=== PATIENT | female | born 1965 | race Caucasian/White ===

== ENCOUNTER 2020-07-26 07:31 | Outpatient (CLI) | payer OTHER, SELFPAY ==
--- NOTE | ~2020-07-26 | MM_ITS ---
EXAMINATION: MM screening ethan BI w chucho HISTORY: Screening TECHNIQUE: Craniocaudal and mediolateral oblique 3-D tomosynthesis images were obtained and synthetic 2-D images were generated. CAD analysis was submitted and interpreted. COMPARISON: Comparison to multiple prior studies sequentially, with oldest reviewed study dated 02/18. BREAST PARENCHYMAL COMPOSITION: There are scattered areas of fibroglandular density. FINDINGS: There is no evidence of suspicious mass, calcification, or architectural distortion to sugg est malignancy in either breast. There has been no suspicious interval change. IMPRESSION: 1. No mammographic evidence of malignancy. 2. Recommend routine screening mammography in one year. BI-RADS Category 1: Negative Reviewed, dictated and finalized at location A. LE COLLECTOR
--- NOTE | ~2020-07-26 | DEXA_ITS ---
Bone Density Report Name: Jessica Tena Age: 54 Sex: Female Ethnicity: White Date of : 1965 Indication: postmenopausal; Referring Provider: Mariana Blancas Study: Bone densitometry was performed. Exam Date: July 26, 2020 Accession number: [id number] Bone Density: Region BMD T-score Z-score Classification AP Spine (L1, L2, L4) 1.054 0.2 1.1 Normal Femoral Neck (Left) 0.811 -0.3 0.6 Normal Total Hip (Left) 0.994 0.4 1.0 Normal Total Hip Bilateral Avg 0.985 0.4 0.9 Normal Femoral Neck (Right) 0.812 -0.3 0.6 Normal Total Hip (Right) 0.975 0.3 0.9 Normal World Health Organization criteria for BMD impression classify patients as: Normal (T-score at or above -1.0), Osteopenia (T-score between -1.0 and -2.5), or Osteoporosis (T-score at or below -2.5). 10-year Fracture Risk: FRAX not reported because: All T-scores for Spine Total, Hip Total, Femoral Neck at or above -1.0 Clinical Information Provided by Patient: Smokes Patient maximum height was 64 Menopause Age: 49 No regular weight bearing exercise Drinks caffeinated beverages Onset of menses at age 14 Number of children 3 Impression: The patient has normal bone mass. The patient has risk factors, including: smoking. Discussion: BONE DENSITY IS ABOVE THE MINIMUM DESIRABLE LEVEL AT ALL SKELETAL SITES TESTED. This patient?s bone mineral density is above the minimum desirable level (T-score -1.0 or better) at all sites measured. The patient should follow a healthful lifestyle (good nutrition with adequate calcium and vitamin D, and appropriate weight-bearing exercise). Follow-Up: Consider repeating this study in 5 years or sooner if there is some new clinical indication. Reported by: LOCO on 07/26/2020 8:01:00 AM. Reviewed, dictated and finalized at location AJones HAMPTON
== END 2020-07-26 07:32 | disposition home or self-care (01) ==
PROVIDERS: PCP Internal Medicine; Visit Provider Nurse Practitioner
DX: Z12.31 Encounter for screening mammogram for malignant neoplasm of breast (principal); Z78.0 Asymptomatic menopausal state
CPT/HCPCS: 77063; 77067; 77080

== ENCOUNTER 2020-09-03 14:51 | Emergency (ER) | payer OTHER, SELFPAY ==
[2020-09-03] VITALS (7 sets, daily range): BP systolic 129–155; BP diastolic 78–95; PULSE 63–86; RESP 13–20; TEMP 36.4; O2SAT 98–100
--- NOTE | ~2020-09-03 | XR_ITS ---
EXAMINATION: XR chest 2V 09/03/2020 17:21 INDICATION: Covid For one week. Smoker. Chest pain. Hypertension. PROCEDURE: PA and lateral views of the chest COMPARISON: 12/17/2011 FINDINGS: The lungs are clear. The cardiomediastinal silhouette is within normal limits. There are no pleural effusions. There is no pneumothorax suspected. IMPRESSION: 1: NO ACUTE CARDIOPULMONARY DISEASE. Reviewed, dictated and finalized at location A. TH CARE COORDINATOR
--- NOTE | 2020-09-03 14:54 | ECG_ITS ---
Measurements Intervals [place] Rate: 78 P: 68 KS: 139 QRS: 5 QRSD: 93 T: 7 QT: 381 QTc: 435 Interpretive Statements SINUS RHYTHM LOW QRS VOLTAGE IN PRECORDIAL LEADS BORDERLINE R WAVE PROGRESSION, ANTERIOR LEADS BORDERLINE ST-T WAVE ABNORMALITY- ANTEROLAT/INF LEADS BORDERLINE ECG Electronically Signed On 09-03-2020 16:33:52 ACCESS LEAD by Srinath Cook D.O.
[2020-09-03 15:08] LABS: Basophils Percent Auto 0.3 % (0.2-1.2); Eosinophils Absolute Auto 0.1 K/mm3 (0-0.3); Eosinophils Percent Auto 1.2 % (0-4.4); Hematocrit 44.9 % (37.0-47.0); Hemoglobin 15.2 g/dL (12.0-15.0); Immature Granulocyte Absolute 0.02 K/mm3 (0.00-0.031); Immature Granulocyte Percent A 0.3 % (0-0.5); Lymphocytes Absolute Auto 2.13 K/mm3 (0.9-3.2); Mean Corpuscular HGB Conc 33.9 g/dl (32-36); Mean Corpuscular Hemoglobin 31.6 pg (26-34); Mean Corpuscular Volume 93.3 fl (80-100); Mean Platelet Volume 9.6 fl (7.4-10.4); Monocytes Absolute Auto 0.4 K/mm3 (0.1-0.6); Monocytes Percent Auto 5.4 % (2.6-8.5); Neutrophils Absolute Auto 3.9 K/mm3 (1.3-6.7); Neutrophils Percent Auto 59.8 % (45.5-73.1); Platelet Count Result 287 k/mm3 (150-375); Red Blood Count 4.81 M/mm3 (4.2-5.4); Red Cell Distribution Width 12.3 % (11.5-14.5); White Blood Count 6.5 K/mm3 (4.5-10.0)
[2020-09-03 15:19] LABS: INR 0.8
[2020-09-03 15:20] LABS: Anion Gap 8 mmol/L (8-16); Blood Urea Nitrogen 14 mg/dL (7-17); Carbon Dioxide 31 mmol/L (22-30); Chloride 100 mmol/L (98-107); Estimated CRCL calculation 80 ml/min; Estimated Glomerular Filt Rate > 60; Glucose 166 mg/dL (65-105); Potassium 3.6 mmol/L (3.4-5.0); Sodium 139 mmol/L (137-145)
[2020-09-03 15:21] LABS: Partial Thromboplastin Time 24.3 SECONDS (22.3-36.8)
[2020-09-03 15:31] LABS: Troponin I < 0.012 ng/mL (0.000-0.034)
[2020-09-03 19:36] LABS: Troponin I < 0.012 ng/mL (0.000-0.034)
--- NOTE | 2020-09-03 19:48 | ED.CHESTPAIN ---
HPI - Chest Pain General Chief Complaint: Chest Pain <Carlos Blackman PA-C - Last Filed: 09/03/20 20:40> Stated Complaint: +covid/chest pain <Carlos Blackman PA-C - Last Filed: 09/03/20 20:40> Time Seen by Provider: 09/03/20 19:43 <Carlso Blackman PA-C - Last Filed: 09/03/20 20:40> Source: patient <Carlos Blackman PA-C - Last Filed: 09/03/20 20:40> Mode of arrival: ambulatory <Carlos Blackman PA-C - Last Filed: 09/03/20 20:40> Limitations: no limitations <Carlos Blackman PA-C - Last Filed: 09/03/20 20:40> History of Present Illness HPI narrative: Patient is a 54-year-old female who has been Covid positive for 1 week patient presents noting dyspnea feeling pains in the chest anteriorly across the chest worse with breathing patient denies similar occurrence in the past fever vomiting diarrhea or other complaints patient with history of tobacco abuse on arrival is in no distress and does not appear uncomfortable is been attempting [id number] medications with minimal improvement managed by primary care <Carlos Blackman PA-C - Last Filed: 09/03/20 20:40> Related Data Allergies/Adverse Reactions: Allergies Allergy/AdvReac Type Severity Reaction Status Date / Time No Known Allergies Allergy Verified 09/03/20 19:42 <Carlos Blackman PA-C - Last Filed: 09/03/20 20:40> Review of Systems Review of Systems: All systems reviewed & are unremarkable except as noted in HPI and below <Carlos Blackman PA-C - Last Filed: 09/03/20 20:40> PMFSH Past Medical History Medical History: Medical History Headache Postmenopausal Sciatica Screening for breast cancer Screening for colon cancer <KAVYA Solorzano Last Filed: 09/03/20 20:40> Family History Family History: Family History (System 08/15/20 @ 12:15 by Inna Garces) Father Hypertension Mother Patient's mother is in good health <Carlos Blackman PA-C - Last Filed: 09/03/20 20:40> Social History Social History: Social History Smoking packs per day: 1 Smoking cigarettes per day: 20.0 Years smoked: 30 Smoking pack-years: 30.00 Smoking status: Current every day smoker Second hand tobacco smoke exposure: Yes Smoking end date: 10/24/14 Alcohol intake: never <Carlos Blackman PA-C - Last Filed: 09/03/20 20:40> Exam Narrative: Exam Narrative: GENERAL: Well-appearing, well-nourished, and in no acute distress. HEAD: Normocephalic, atraumatic. EYES: PERRLA and EOMI. ENT: Nares clear, no rhinorrhea or epistaxis. Mucous membranes moist. CHEST: Clear to auscultation. No respiratory distress. No wheezes rales or rhonchi HEART: Regular rate and rhythm. No murmur heard. Normal peripheral pulses. ABDOMEN: Soft, nontender, nondistended EXTREMITIES: Normal range of motion. No edema. SKIN: Warm, dry, no rash. NEURO: No focal deficits. Alert and oriented x3. PSYCH: Normal mood and affect. <Carlos Blackman PA-C - Last Filed: 09/03/20 20:40> Course Course Emergency Course: Patient presented with Covid symptoms was evaluated patient with normal vital signs no hypoxemia no pneumonia negative D-dimer cardiac work-up was unremarkable patient will be discharged home advised to quit smoking will be treated symptomatically and given instructions for follow-up with primary care as well as for reasons to return. Patient is afebrile nontoxic-appearing no distress vital signs and ABCs intact and stable <Carlos Blackman PA-C - Last Filed: 09/03/20 20:40> Vital Signs Vital signs: Vital Signs Temperature 36.4 C L 09/03/20 14:55 Pulse Rate 86 09/03/20 14:55 Respiratory Rate 16 09/03/20 14:55 Blood Pressure 138/89 09/03/20 14:55 Pulse Oximetry 99 09/03/20 14:55 Temperature 36.4 C 09/03/20 17:55 Pulse Rate 66 09/03/20 21:41
[2020-09-03 20:21] LABS: D Dimer 0.29 ug/mL (<0.48)
== END 2020-09-03 21:41 | disposition home or self-care (01) ==
PROVIDERS: Emergency Medicine; Emergency Medicine Emergency Medical Services; Emergency Provider Emergency Medicine; PCP Internal Medicine
DX: U07.1 COVID-19 (principal); R07.9 Chest pain, unspecified; F17.210 Nicotine dependence, cigarettes, uncomplicated; R94.31 Abnormal electrocardiogram [ECG] [EKG]
CPT/HCPCS: 36415; 71046; 80048; 84484; 85025; 85380; 85610; 85730; 93005; 99284

== ENCOUNTER 2021-12-03 00:02 | Day surgery (SDC) | payer OTHER, SELFPAY ==
[2021-11-21 15:44] VITALS: BMI 26.4
[2021-12-03 06:56] VITALS: BP 130/90; PULSE 82; RESP 18; TEMP 36.3; O2SAT 99; BMI 26.6
[2021-12-03] MEDS: LACTATED RINGERS 1,000 ML 150 ML IV CONT (07:16)
--- NOTE | 2021-12-03 07:40 | P.PNAN_ITS ---
Anes - Initial Pre Proc Eval Procedure: Operation Date: 12/03/21 08:00 Proposed Procedures p Screening Colonoscopy - Dakota Benavides MD Date/Time: 12/03/21 07:40 Surgeon: Dakota Benavides MD Pre Op Diagnosis: neoplasm screening Patient Data Age: 55 Gender: F Height: 1.63 m Weight: 70.5 kg Last Vital Signs Temp 97.3 F L 12/03/21 06:56 Pulse 82 12/03/21 06:56 Resp 18 12/03/21 06:56 BP 130/90 12/03/21 06:56 Pulse Ox 99 12/03/21 06:56 O2 Del Method Room Air 12/03/21 06:56 Allergies Allergy/AdvReac Type Severity Reaction Status Date / Time No Known Allergies Allergy Verified 12/03/21 07:03 Home Medications Medication Instructions Recorded Confirmed Type atorvastatin 20 mg tablet 20 mg PO DAILY #90 tabs 08/22/21 12/03/21 Rx alprazolam 2 mg tablet (Xanax) 2 mg PO TID #90 tabs 09/12/21 12/03/21 Rx hydrocodone 7.5 mg-acetaminophen 1 tablet PO TID PRN pain #90 tabs 11/21/21 12/03/21 Rx 325 mg tablet lisinopril 10 1 tablet PO DAILY 11/21/21 12/03/21 History mg-hydrochlorothiazide 12.5 mg tablet omeprazole 20 mg capsule,delayed 20 mg PO DAILY 11/21/21 12/03/21 History release plecanatide 3 mg tablet (Trulance) 3 mg PO DAILY PRN Constipation 11/21/21 12/03/21 History Patient hx anesthesia problems: none Family hx anesthesia problems: none Results Review: All pre-operative results and documents have been reviewed as part of the pre- operative evaluation. [facility] Past Medical History Medical History Headache Postmenopausal Sciatica Screening for breast cancer Screening for colon cancer Family History Family History Father Hypertension Mother Patient's mother is in good health Social History Social History Smoking packs per day: 1 Smoking cigarettes per day: 20.0 Years smoked: 20 Smoking pack-years: 20.00 Smoking status: Current every day smoker Tobacco type: cigarettes Second hand tobacco smoke exposure: Yes Smoking end date: 10/24/14 Alcohol intake: never Substance use: never Substance use type: does not use Living arrangements: with family Spiritual care concerns: No Anes - Eval Final PreProcedure Day of Procedure 12/03/21 07:40 Patient weight: normal Heart: regular rate and rhythm Lungs: clear to auscultation Airway: Mallampati scale class II Neurological: alert and oriented Last oral intake: >/= 8 hours ASA classification: III Emergent: no Anesthetic plan: proceed Anesthesia type and monitoring: general GIVS and standard monitoring Results Review: All pre-operative results and documents have been reviewed as part of the pre- operative evaluation. Informed Consent: The patient's anesthetic plan and its attendant risks and benefits were discussed with the patient/family/POA. Questions were solicited and answers provided to the satisfaction of the patient/family/POA.
--- NOTE | 2021-12-03 07:53 | PM.HPGS ---
History of Present Illness History of Present Illness Consent: Risks, benefits, and alternatives have been discussed and questions answered. Patient agrees to proceed with procedure. Chief complaint: neoplasm screening Narrative: Jessica Tena is a 55 year old female here for first colonoscopy, also history of constipation now using trulance Review of Systems Constitutional: Constitutional: Denies headache(s) and Denies weakness Eyes: Eyes: Denies blurry vision ENT: Reports Normal hearing present, Denies headache(s) and Denies neck pain Cardiovascular: Cardiovascular: Denies chest pain and Denies dyspnea Respiratory: Respiratory: Denies dyspnea Gastrointestinal: Gastrointestinal: Reports no additional gastrointestinal complaints Genitourinary: Genitourinary: Denies dysuria Musculoskeletal: Musculoskeletal: Denies neck pain Integumentary/Breasts: Skin/Breast: Denies dry skin Neurologic: Reports Normal hearing present, Denies headache(s) and Denies weakness Psychiatric: Psychiatric: Denies anxiety Endocrine: Endocrine: Denies change in body appearance Hematologic/Lymphatic: Hematologic/Lymphatic: Denies easy bleeding Allergic/Immunologic: Allergic/Immunologic: Denies urticaria PMFSH Past Medical History Medical History Headache Postmenopausal Sciatica Screening for breast cancer Screening for colon cancer Family History Family History Father Hypertension Mother Patient's mother is in good health Social History Social History Smoking packs per day: 1 Smoking cigarettes per day: 20.0 Years smoked: 20 Smoking pack-years: 20.00 Smoking status: Current every day smoker Tobacco type: cigarettes Second hand tobacco smoke exposure: Yes Smoking end date: 10/24/14 Alcohol intake: never Substance use: never Substance use type: does not use Living arrangements: with family Spiritual care concerns: No Meds Home Medications and Allergies Home Medications Medication Instructions Recorded Confirmed Type atorvastatin 20 mg tablet 20 mg PO DAILY #90 tabs 08/22/21 12/03/21 Rx alprazolam 2 mg tablet (Xanax) 2 mg PO TID #90 tabs 09/12/21 12/03/21 Rx hydrocodone 7.5 mg-acetaminophen 1 tablet PO TID PRN pain #90 tabs 11/21/21 12/03/21 Rx 325 mg tablet lisinopril 10 1 tablet PO DAILY 11/21/21 12/03/21 History mg-hydrochlorothiazide 12.5 mg tablet omeprazole 20 mg capsule,delayed 20 mg PO DAILY 11/21/21 12/03/21 History release plecanatide 3 mg tablet (Trulance) 3 mg PO DAILY PRN Constipation 11/21/21 12/03/21 History Allergies Allergy/AdvReac Type Severity Reaction Status Date / Time No Known Allergies Allergy Verified 12/03/21 07:03 Vital Signs Vital Signs - 24 hr 12/03/21 06:56 Temperature 97.3 F L Pulse Rate 82 Respiratory Rate 18 Blood Pressure 130/90 Pulse Oximetry 99 Oxygen Delivery Room Air Exam Const: General: comfortable and no acute distress HENMT: General nose exam: Normal nares present Eyes: General: appearance normal, both eyes and all related structures Neck: Neck: no JVD Resp: Auscultation: clear to auscultation bilaterally Cardio: Rate: regular rate Rhythm: regular rhythm GI: Inspection: non-distended GI Palp: Yes Soft to palpation Skin: General skin exam: normal color Neuro: General: gait normal Speech: normal speech Extrem: General: normal to inspection Psych: Mental Status: mental status grossly normal Assessment and Plan Assessment and plan (1) Screening for colon cancer: Code(s): Z12.11 - Encounter for screening for malignant neoplasm of colon Status: Acute Assessment and Plan: colonoscopy (2) Chronic narcotic use: Code(s): F11.90 - Opioid use, unspecified, uncomplicated Status
[2021-12-03 08:11] VITALS: BP 115/69; PULSE 71; RESP 25; O2SAT 97
[2021-12-03 08:21] VITALS: BP 123/68; PULSE 71; RESP 15; O2SAT 99
[2021-12-03 08:31] VITALS: BP 136/86; PULSE 64; RESP 20; O2SAT 99
== END 2021-12-03 08:42 | disposition home or self-care (01) ==
PROVIDERS: PCP Internal Medicine; Visit Provider Internal Medicine Gastroenterology
PROC: 0DJD8ZZ Inspection of Lower Intestinal Tract, Via Natural or Artificial Opening Endoscopic (ICD-10-PCS; CPT 45378; principal; 2021-12-03 08:00)
DX: Z12.11 Encounter for screening for malignant neoplasm of colon (principal); K57.30 Diverticulosis of large intestine without perforation or abscess without bleeding; K64.8 Other hemorrhoids; K59.00 Constipation, unspecified; F11.90 Opioid use, unspecified, uncomplicated; Z87.891 Personal history of nicotine dependence
CPT/HCPCS: 45378; J2704; J7120

== ENCOUNTER 2023-06-22 10:40 | Outpatient (CLI) | payer OTHER, SELFPAY ==
--- NOTE | ~2023-06-22 | CT_ITS ---
EXAMINATION: CT lung screening DATE: 06/22/2023 10:59 INDICATION: Personal history of nicotine dependence TECHNIQUE: Computed tomography (CT) of the chest was performed without intravenous contrast. The dose -length product was 89.30 mGy-cm. Automated exposure control and iterative reconstruction technique w ere employed. COMPARISON: None FINDINGS: Heart size normal. No significant pleural or pericardial effusion. There is right middle lo be atelectasis. There is fissural thickening on the left. No thoracic lymphadenopathy. Upper abdomen is unremarkable. There is a 2 mm right upper lobe nodule. There is a 2 mm left upper lobe nodule. Mil d emphysema. No endobronchial lesions. No pneumothorax. IMPRESSION: 1. Lung-RADS category 2: Benign appearance or behavior. Continue annual screening with noncontrast lo w-dose chest CT in 12 months. Reviewed, dictated and finalized at location L. MAN IMPRESSION: 1. Lung-RADS category 2: Benign appearance or behavior. Continue annual screeni ng with noncontrast low-dose chest CT in 12 months.
== END 2023-06-22 10:41 | disposition home or self-care (01) ==
LOC: ANHIMG 10:45
PROVIDERS: PCP Family Medicine; Visit Provider Family Medicine
DX: Z12.2 Encounter for screening for malignant neoplasm of respiratory organs (principal); Z87.891 Personal history of nicotine dependence
CPT/HCPCS: 71271

== ENCOUNTER 2023-10-12 07:46 | Outpatient (CLI) | payer OTHER, SELFPAY ==
--- NOTE | ~2023-10-12 | MM_ITS ---
EXAMINATION: MM screening ethan BI w chucho HISTORY: Screening TECHNIQUE: Craniocaudal and mediolateral oblique 3-D tomosynthesis images were obtained and synthetic 2-D images were generated. CAD analysis was submitted and interpreted. COMPARISON: Comparison to multiple prior studies sequentially, with oldest reviewed study dated 09/2017. BREAST PARENCHYMAL COMPOSITION: Not dense: There are scattered areas of fibroglandular density. FINDINGS: There is no evidence of suspicious mass, calcification, or architectural distortion to sugg est malignancy in either breast. There has been no suspicious interval change. IMPRESSION: 1. No mammographic evidence of malignancy. 2. Recommend routine screening mammography in one year. BI-RADS Category 1: Negative Reviewed, dictated and finalized at location B.
== END 2023-10-12 07:47 | disposition home or self-care (01) ==
PROVIDERS: PCP Family Medicine; Visit Provider Family Medicine
DX: Z12.31 Encounter for screening mammogram for malignant neoplasm of breast (principal)
CPT/HCPCS: 77063; 77067

== ENCOUNTER 2024-07-10 14:19 | Outpatient (CLI) | payer OTHER, SELFPAY ==
--- NOTE | ~2024-07-10 | CT_ITS ---
EXAMINATION:CT lung screening DATE: 07/10/2024 14:44 INDICATION: Personal history of nicotine dependence. Current smoker with 30 pack year history. TECHNIQUE: Computed tomography (CT) of the chest was performed without intravenous contrast. Automate d exposure control and iterative reconstruction technique were employed. The dose-length product (DLP ) was 84.55 mGy-cm. COMPARISON: Chest CT 06/22/2023 FINDINGS: The lungs demonstrate mild atelectasis. There are 3 nodules in right upper lobe measuring u p to 2 mm. There is mild scarring in paraspinal right lower lobe. No pleural effusion. Cardiomegaly i s noted. There are coronary artery calcifications. No pericardial effusion. There is mild thoracic sp ondylosis. IMPRESSION: 1. Lung-RADS category 2: Benign appearance or behavior. Continue annual screening with noncontrast lo w-dose chest CT in 12 months. Reviewed, dictated and finalized at location A. OR HARDWARE DESIGN ENGINEER IMPRESSION: 1. Lung-RADS category 2: Benign appearance or behavior. Continue annual screeni ng with noncontrast low-dose chest CT in 12 months.
--- NOTE | ~2024-07-10 | MR_ITS ---
EXAMINATION: MR brain/brain stem wo/w con DATE: 07/10/2024 15:19 INDICATION: Benign neoplasm of meninges, unspecified. TECHNIQUE: Magnetic resonance imaging (MRI) of the brain and brainstem was performed without and with 15 mL MultiHance intravenous contrast. COMPARISON: None. FINDINGS: There are scattered areas of nonspecific increased T2-weighted signal intensity in the cere bral white matter and shel[place], which is within normal limits for the patient's age. There is no intracra nial hemorrhage, acute infarction, or abnormal intracranial mass lesion. The ventricles are normal in size. The orbits are normal. The paranasal sinuses are clear. The mastoid air cells are normal. IMPRESSION: 1. Normal aging brain. Reviewed, dictated and finalized at location A. MOTIVE TEACHER IMPRESSION: 1. Normal aging brain.
== END 2024-07-10 14:20 | disposition home or self-care (01) ==
LOC: MICIMG 14:21
PROVIDERS: PCP Family Medicine; Visit Provider Family Medicine
DX: Z12.2 Encounter for screening for malignant neoplasm of respiratory organs (principal); Z87.891 Personal history of nicotine dependence; D32.9 Benign neoplasm of meninges, unspecified
CPT/HCPCS: 70553; 71271; A9577

== ENCOUNTER 2024-09-15 06:40 | Outpatient (CLI) | payer OTHER, SELFPAY ==
--- OUTSIDE RECORDS SUMMARY | 2024-09-15 06:44 | XMS_ITS | Clinical Summary ---
Author Organization [facility] Address Formerly [facility] [place] [address] Care Team Providers Care Parent Educator Name Role Phone None, Provider MD Primary Care Provider Unavaila ble Allergies No known active allergies Medications omeprazole (PRILOSEC) 20 MG capsule Take 1 capsule (20 mg total) by mouth daily. 3 Active HYDROcodone-sonido taminophen (NORCO) 7.5-325 MG tablet Take 0.5-1 tablets by mouth every 8 (eight) hours as needed. PATIENT TRYING TO STOP TAKING THIS MEDICATION. PATIENT STATES SHE IS CURRENTLY TAKING TABLET ONCE A DAY. Active ALPRAZolam (XANAX) 2 MG tablet Take 1 tablet (2 mg total) by mouth 3 (three) times daily. *PATIENT THREW THESE MEDICATIONS AWAY THIS PAST WEEKEND (04/03/2023) HAS NOT HAD ANY SINCE THEN. ADVISED PATIENT TO TALK TO PCP ABOUT WEANING OFF MEDICATION INSTEAD OF JUST STOPPING ABRUPTLY. Active atorvastatin (LIPITOR) 20 MG tablet Take 1 tablet (20 mg total) by mouth nightly at bedtime. 3 Active lisinopril (PRINIVIL) 10 MG tablet Take 1 tablet (10 mg total) by mouth daily. 30 tablet 3 Active Active Problems Problem Noted Date Diagnosed Date Syncope 04/08/2023 Family History Relation Status Comments Father Alive Mother Alive Social History Tobacco Use Types Packs/Day Years Used Date Smoking Tobacco: Every Day Cigarettes Smokeless Tobacco: Never Alcohol Use Standard Drinks/Week Comments Never 0 (1 standard drink = 0.6 oz pur e alcohol) Humiliation, Afraid, Rape, and Kick questionnair e Answer Date Recorded Within the last year, have y ou been afraid of your partner or ex-partner? No 04/08/2023 Within the last year, have y ou been humiliated or emotionally abused in other ways by your partner or ex-partner? No Within the last year, have y ou been kicked, hit, slapped, or otherwise physically hurt by your partner or ex-partner? No 04/08/2023 Within the last year, have y ou been raped or forced to have any kind of sexual activity by your partner or ex-partner? No 04/08/2023 Social Connection and Isolation Panel [NHANES] A nswer Date Recorded In a typical week, how many times do you talk on the phone with family, friends, or neighbors? Twice a week 04/08/2023 How often do you get together with friends or re latives? Once a week 04/08/2023 How often do you attend mu-ism or congregation serv ices? Never 04/08/2023 Do you belong to any clubs o r organizations such as mu-ism groups, unions, fraternal or athletic groups, or school groups? No 04/08/2023 How often do you attend meet ings of the clubs or organizations you belong to? Never 04/08/2023 Are you , , di vorced, , never , or living with a partner? 04/08/2023 AUDIT-C Answer Date Recorded Q1: How often do you have a drink containing alcohol? Never 04/08/2023 Q2: How many drinks containi ng alcohol do you have on a typical day when you are drinking? Patient does not drink Q3: How often do you have si x or more drinks on one occasion? Never 04/08/2023 Overall Financial Resource Strain (CARDIA) Answe r Date Recorded How hard is it for you to pa y for the very basics like food, housing, medical care, and heating? Not hard at all 04/08/2023 PHQ-2 Answer Date Recorded Patient Health Questionnaire-2 Score 0 04/08/2023 [facility] - Occupational Stress Questionnaire Answer Date Recorded Do you feel stress - tense, restless, nervous, or anxious, or unable to sleep at night because your mind is troubled all the time - these days? Only a little 04/08/2023 Exercise Vital Sign Answer Date Recorde d On average, how many days pe r week do you engage in moderate to strenuous exercise (like a brisk walk)? 7 days 04/08/2023 On average, how many minutes do you engage in exercise at this level? 30 min 04/08/2023 Hunger Vital Sign Answer Date Recorded Within the past 12 months, y ou worried that your food would run out before you got the money to buy more. Never true 04/08/20 23 Within the past 12 months, t he food you bought just didn't last and you didn't have money to get more. Never true 04/08/2023 PRAPARE - Transportation Answer Date Re corded In the past 12 months, has l ack of transportation kept you from medical appointments or from getting medications? No 03/28 In the past 12 months, has l ack of transportation kept you from meetings, work, or from getting things needed for daily living? No 04/08/2023 Housing Stability Vital Sign Answer Joshua e Recorded In the last 12 months, was t here a time when you were not able to pay the mortgage or rent on time? No 04/08/2023 In the last 12 months, how many places have you lived? 1 04/08/2023 In the last 12 months, was t here a time when you did not have a steady place to sleep or slept in a group home (including now)? No 04/08/2023 Comments No Sex and Gender Information Value Date Recorded Sex Assigned at Not on file Legal Sex Female 5:43 PM CDT Gender Identity Not on file Sexual Orientation Not on file Last Filed Vital Signs Vital Sign Reading Time Taken Comments Blood Pressure 136/91 04/09/2023 7:00 AM CDT Pulse 66 04/09/2023 7:00 AM CDT Temperature 36.8 C (98.2 F) 04/09/2023 7:00 AM CDT Respiratory Rate 18 04/09/2023 7:00 AM CDT Oxygen Saturation 99% 04/09/2023 7:00 AM CDT Inhaled Oxygen Concentration - - Weight 72.6 kg (160 lb) 04/09/2023 7:00 AM CDT Height 162.6 cm (5' 4 ) 04/07/2023 6:41 PM CDT Body Mass Index 27.46 04/07/2023 6:41 PM CDT Plan of Treatment Health Maintenance Due Date Last Done Comments Cervical Cancer Screening Pa p Smear (Age 30 to 64) Every 3 Years 1966 Colorectal Cancer Screening Colonoscopy (10 Years) 1966 Annual Physical 1969 Pneumococcal Vaccine: Pediatrics (0 to 5 Years) and At-Risk Patients (6 to 64 Years) (1 of 2 - PCV) 1972 Hepatitis C 1984 DTaP, Tdap and Td Vaccines ( 1 - Tdap) 1985 Hepatitis B Vaccines (1 of 3 - 19+ 3-dose series) 1985 Cervical Cancer Screening Pa p with HPV Testing (Age 30 to 64) Every 5 Years 1996 Cervical Cancer Screening wi th HPV 1996 Mammogram Screening 2006 Zoster Vaccines (1 of 2) 2016 COVID-19 Vaccine (2023-2 5 season) 2024 05/20/2021, 09/16/2020, 08/26/2020 Influenza Adult (#1) 2024 Meningococcal B Vaccine Aged Out No l onger eligible based on patient's age to complete this topic Meningococcal Vaccine Aged Out No dante estrella eligible based on patient's age to complete this topic RSV Immunizations Under 20 Months Aged Out No longer eligible b ased on patient's age to complete this topic Insurance [facility] Member Subscriber Plan / Payer (Ef fective 2022-Present) Name:Jessica Tena Relation to Subscriber:Spouse Name:CHAPISMARGIE Date of :1969 Address: [address] [place] [address] Payer ID:[id number] (NAIC) Type:Not on file Address: [facility] [id number] [place] [phone] Advance Directives * Full Code (Latest Code Status on File) Date Activated Date Inactivated Comments 04/08/2023 12:27 AM 04/09/2023 1:54 PM Care Teams Parent Educator Relationship Specialty Start Date End Date None, Provider, PCP - General UNKNOWN PHYSICIAN SPECIALTY 04/07/23
--- OUTSIDE RECORDS SUMMARY | 2024-09-15 06:44 | XMS_ITS | Data Portability ---
Author Organization [facility] [place] Address [address] [place] [address] Assessment No assessment recorded. Plan of Treatment Reminders Order Date Submit Date Provider Last Modified By Organization Details Last Modified Time Details Appointments None recorded. Lab None recorded. Referral None recorded. Procedures None recorded. Surgeries None recorded. Imaging None recorded. Medication Orders nystatin- triamcino lone 100,000 unit/gram -0.1 % topical ointment 2019 020 INTERFACE [id number], [address], [place], [id number], 0 12:47:36 Diflucan 200 mg tablet 2019 020 [email or web address] [id number] [address], [place], [id number], 0 12:31:57 nystatin- triamcino lone 100,000 unit/gram -0.1 % topical ointment 2019 020 [email or web address] [facility] #[id number], [address], [place], [id number], 0 12:32:06 Patient TargetsNo targets recorded. Patient InstructionsNo instructions recorded. Reason for Referral None Reported. Results Created Date Observation Date Name Description Value Unit Range Abnormal Flag Note LastModifiedBy Organization Detail LastModifiedTime 03/28/2003/2903/29/2020 bacte rial vagin osis + vagin itis panel , vagin al darvin sp. Detect ed abnormal Trich omona s vagin gail: DNA testi ng perfo rmed by Trans cript ion Media gio Ampli ficat ion (TMA) These resul ts shoul d be inter prete d in light of all clini mary beth and labor atory findi ngs. This assay is highl y accur ate, but rare false posit dana and negat dana resul ts may occur . Posit dana resul ts in low preva lence popul ation s may requi re re-ev aluat ion. A negat dana resul t does not precl ude a possi ble infec tion due to a speci men inade quacy or sampl ing error . Test perfo rmed by [facility], d/b/a [facility], [address], [place] [address] , Bj Mac ra, DO, Labor atory Direc tor. Annie montero a vagin gail, Dinah da speci es: Genom ic DNA is isola gio from patie nt speci mens by stand ana luisa labor atory techn iques and anshu zed using custo m OpenA rray plate s, perfo rmed on the Quant Studi o 12K Flex Real Time PCR syste m. A posit dana resul t is provi ded for patho genic bacte stacia, virus and/o r funga l speci es based on detec tion of ampli ficat ion produ cts. Jennifer l vagin al holly resul ts of Jennifer l or [place] gio are deter mined by calcu latin g the ratio of the organ ism to the total bacte stacia prese nt in the speci men, and poonam ring that ratio to a PathG roup patie nt popul ation . Overa ll resul ts of Jennifer l, Borde rline and Abnor mal are deter mined using a proba bilit y model which was devel oped by an exten sive anshu sis and integ ratio n of clini mary beth thres holds for marke r organ isms on a large set of sympt omati c & asymp tomat ic speci mens. Patie nt popul ation s with diffe rent demog raphi cs from the Path Art Qualified model popul ation may have diffe rent indic ator organ isms with diffe rent relat dana ratio s, which would influ ence the final resul ts. Resul ts shoul d be inter prete d in the magalis xt of all clini mary beth and labor atory findi ngs. The test was devel oped and its perfo rmanc e sam cteri stics deter mined by [facility], [employer] d/b/a [facility]. It has not been clear ed or appro cheryl by the U.S. Food and Drug Admin istra tion. The FDA has deter mined that such clear ance or appro sadie is not neces aimee. Perti nent refer ence inter vals are avail able from the [facility] ator on reque [address]. Test( s) perfo rmed by [facility], d/b/a [facility] Art Qual[facility], [address], [place] [address] , Bj Mac ra, DO, Labor atory Dire tor. Not Available [facility] ([facility]) [address] [facility] [address], [place], [address], 03/30/2020 09:54:54 03/28/20 20 03/29/2020 bacte rial vagin osis + vagin itis panel , vagin al gardnerella vaginalis Detect ed abnormal Trich omona s vagin gail: DNA testi ng perfo rmed by Trans cript ion Media gio Ampli ficat ion (TMA) These resul ts shoul d be inter prete d in light of all clini mary beth and labor atory findi ngs. This assay is highl y accur ate, but rare false posit dana and negat dana resul ts may occur . Posit dana resul ts in low preva lence popul ation s may requi re re-ev aluat ion. A negat dana resul t does not precl ude a possi ble infec tion due to a speci men inade quacy or sampl ing error . Test perfo rmed by [facility], d/b/a Path[facility]ah[facility] rivas, [address], [place] [address] , Bj Mac ra, DO, Labor atory Direc tor. Gardn erell a vagin gail, Dinah da speci es: Genom ic DNA is isola gio from patie nt speci mens by stand ana luisa labor atory techn iques and anshu zed using custo m OpenA rray plate s, perfo rmed on the [employer] o 12K Flex Real Time PCR syste m. A posit dana resul t is provi ded for patho genic bacte stacia, virus and/o r funga l speci es based on detec tion of ampli ficat ion produ cts. Jennifer l vagin al holly resul ts of Jennifer l or [place] gio are deter mined by calcu latin g the ratio of the organ ism to the total bacte stacia prese nt in the speci men, and poonam ring that ratio to a PathG roup patie nt popul ation . Overa ll resul ts of Jennifer l, Borde rline and Abnor mal are deter mined using a proba bilit y model which was devel oped by an exten sive anshu sis and integ ratio n of clini mary beth thres holds for marke r organ isms on a large set of sympt omati c & asymp tomat ic speci mens. Patie nt popul ation s with diffe rent demog raphi cs from the PathG roup model popul ation may have diffe rent indic ator organ isms with diffe rent relat dana ratio s, which would influ ence the final resul ts. Resul ts shoul d be inter prete d in the magalis xt of all clini mary beth and labor atory findi ngs. The test was devel oped and its perfo rmanc e sam cteri stics deter mined by [facility] d/b/a [facility]G rouchris. It has not been clear ed or appro cheryl by the U.S. Food and Drug Admin istra tion. The FDA has deter mined that such clear ance or appro sadie is not neces aimee. Perti nent refer ence inter vals are avail able from the labor atory on reque st. Test( s) perfo rmed by [facility], d/b/a [facility] roup, [address], [place] [address] , Bj Mac ra, DO, Labor atory Direc tor. Not Available [facility] ([facility]) [address], [place], [address], 03/30/2020 09:54:54 03/28/20 20 03/30/2020 bacte rial vagin osis + vagin itis panel , vagin al trichomonas vaginalis, aptima (panther) NOT DETECT ED normal Trich omona s vagin gail: DNA testi ng perfo rmed by Trans cript ion Media gio Ampli ficat ion (TMA) These resul ts shoul d be inter prete d in light of all clini mary beth and labor atory findi ngs. This assay is highl y accur ate, but rare false posit dana and negat dana resul ts may occur . Posit dana resul ts in low preva lence popul ation s may requi re re-ev aluat ion. A negat dana resul t does not precl ude a possi ble infec tion due to a speci men inade quacy or sampl ing error . Test perfo rmed by [facility], [employer], d/b/a [facility] roup, [address], [place] [address] , Bj Mac ra, , Labor atory Direc tor. Edithn winston a vagin gail, Dinah da speci es: Genom ic DNA is isola gio from patie nt speci mens by stand ana luisa labor atory techn iques and anshu zed using custo m OpenA rray plate s, perfo rmed on the Quant Studi o 12K Flex Real Time PCR syste m. A posit dana resul t is provi ded for patho genic bacte stacia, virus and/o r funga l speci es based on detec tion of ampli ficat ion produ cts. Jennifer l vagin al holly resul ts of Jennifer l or [place] gio are deter mined by calcu latin g the ratio of the organ ism to the total bacte stacia prese nt in the speci men, and poonam ring that ratio to a PathG roup patie nt popul ation . Overa ll resul ts of Jennifer l, Borde rline and Abnor mal are deter mined using a proba bilit y model which was devel oped by an exten sive anshu sis and integ ratio n of clini mary beth thres holds for marke r organ isms on a large set of sympt omati c & asymp tomat ic speci mens. Patie nt popul ation s with diffe rent demog raphi cs from the PathG roup model popul ation may have diffe rent indic ator organ isms with diffe rent relat dana ratio s, which would influ ence the final resul ts. Resul ts shoul d be inter prete d in the magalis xt of all clini mary beth and labor atory findi ngs. The test was devel oped and its perfo rmanc e sam cteri stics deter mined by [employer], [employer] d/b/a PathG roup. It has not been clear ed or appro cheryl by the U.S. Food and Drug Admin istra tion. The FDA has deter mined that such clear ance or appro sadie is not neces aimee. Perti nent refer ence inter vals are avail able from the labor atory on reque st. Test( s) perfo rmed by [facility] [employer] [facility], [employer], d/b/a Path[facility] roup, [address], [place] [address] , Bj Mac ra, DO, Labor atory Direc tor. Not Available [facility] ([facility]) [address], [place], [address], 03/30/2020 09:54:54 05/28/20 20 05/29/2020 bacte rial vagin osis + vagin itis panel , vagin al darvin sp. Detect ed abnormal Trich omona s vagin gail: DNA testi ng perfo rmed by Trans cript ion Media gio Ampli ficat ion (TMA) These resul ts shoul d be inter prete d in light of all clini mary beth and labor atory findi ngs. This assay is highl y accur ate, but rare false posit dana and negat dana resul ts may occur . Posit dana resul ts in low preva lence popul ation s may requi re re-ev aluat ion. A negat dana resul t does not precl ude a possi ble infec tion due to a speci men inade quacy or sampl ing error . Test perfo rmed by [facility], [employer], d/b/a Path [facility], [address], [place] [address] , Bj Mac ra, DO, Labor atory Direc tor. Gardn lindsayll a vagin gail, Dinah da speci es: Genom ic DNA is isola gio from patie nt speci mens by stand ana luisa labor atory techn iques and anshu zed using custo m OpenA rray plate s, perfo rmed on the Quant Studi o 12K Flex Real Time PCR syste m. A posit dana resul t is provi ded for patho genic bacte stacia, virus and/o r funga l speci es based on detec tion of ampli ficat ion produ cts. Jennifer l vagin al holly resul ts of Jennifer l or [place] gio are deter mined by calcu latin g the ratio of the organ ism to the total bacte stacia prese nt in the speci men, and poonam ring that ratio to a PathG roup patie nt popul ation . Overa ll resul ts of Jennifer l, Borde rline and Abnor mal are deter mined using a proba bilit y model which was devel oped by an exten sive anshu sis and integ ratio n of clini mary beth thres holds for marke r organ isms on a large set of sympt omati c & asymp tomat ic speci mens. Patie nt popul ation s with diffe rent demog raphi cs from the PathG roup model popul ation may have diffe rent indic ator organ isms with diffe rent relat dana ratio s, which would influ ence the final resul ts. Resul ts shoul d be inter prete d in the magalis xt of all clini mary beth and labor atory findi ngs. The test was devel oped and its perfo rmanc e sam cteri stics deter mined by [email or web address], [employer] d/b/a [facility]. It has not been clear ed or appro cheryl by the U.S. Food and Drug Admin istra tion. The FDA has deter mined that such clear ance or appro sadie is not neces aimee. Perti nent refer ence inter vals are avail able from the [employer] on reque st. Test( s) perfo rmed by [email or web address], [employer], d/b/a [facility], [address], [place] [address] , Bj Mac ra, DO, Labor atory Dire tor. Not Available [facility] ([facility]) [address], [place], [address], 05/29/2020 18:57:47 05/28/20 20 05/29/2020 bacte rial vagin osis + vagin itis panel , vagin al gardnerella vaginalis Detect ed abnormal Trich omona s vagin gail: DNA testi ng perfo rmed by Trans cript ion Media gio Ampli ficat ion (TMA) These resul ts shoul d be inter prete d in light of all clini mary beth and labor atory findi ngs. This assay is highl y accur ate, but rare false posit dana and negat dana resul ts may occur . Posit dana resul ts in low preva lence popul ation s may requi re re-ev aluat ion. A negat dana resul t does not precl ude a possi ble infec tion due to a speci men inade quacy or sampl ing error . Test perfo rmed by [facility], d/b/a [facility]oup, [address], [place] [address] , Bj Mac ra, DO, Labor atory Direc tor. Gardn erell a vagin gail, Dinah da speci es: Genom ic DNA is isola gio from patie nt speci mens by stand ana luisa labor atory techn iques and anshu zed using custo m OpenA rray plate s, perfo rmed on the Quant Studi o 12K Flex Real Time PCR syste m. A posit dana resul t is provi ded for patho genic bacte stacia, virus and/o r funga l speci es based on detec tion of ampli ficat ion produ cts. Jennifer l vagin al holly resul ts of Jennifer l or [place] gio are deter mined by calcu latin g the ratio of the organ ism to the total bacte stacia prese nt in the speci men, and poonam ring that ratio to a PathG roup patie nt popul ation . Overa ll resul ts of Jennifer l, Borde rline and Abnor mal are deter mined using a proba bilit y model which was devel oped by an exten sive anshu sis and integ ratio n of clini mary beth thres holds for marke r organ isms on a large set of sympt omati c & asymp tomat ic speci mens. Patie nt popul ation s with diffe rent demog raphi cs from the PathG roup model popul ation may have diffe rent indic ator organ isms with diffe rent relat dana ratio s, which would influ ence the final resul ts. Resul ts shoul d be inter prete d in the magalis xt of all clini mary beth and labor atory findi ngs. The test was devel oped and its perfo rmanc e sam cteri stics deter mined by [facility] [employer] d/b/a PathG roup. It has not been clear ed or appro cheryl by the U.S. Food and Drug Admin istra tion. The FDA has deter mined that such clear ance or appro sadie is not neces aimee. Perti nent refer ence inter vals are avail able from the labor atory on reque st. Test( s) perfo rmed by [facility] [employer], [employer], d/b/a PathG roup, [address], [place] [address] , Bj Mac ra, DO, Labor atory Direc tor. Not Available [facility] ([facility]) [address], [place], [address], 05/29/2020 18:57:47 05/28/20 20 05/29/2020 bacte rial vagin osis + vagin itis panel , vagin al trichomonas vaginalis, aptima (panther) NOT DETECT ED normal Trich omona s vagin gail: DNA testi ng perfo rmed by Trans cript ion Media gio Ampli ficat ion (TMA) These resul ts shoul d be inter prete d in light of all clini mary beth and labor atory findi ngs. This assay is highl y accur ate, but rare false posit dana and negat dana resul ts may occur . Posit dana resul ts in low preva lence popul ation s may requi re re-ev aluat ion. A negat dana resul t does not precl ude a possi ble infec tion due to a speci men inade quacy or sampl ing error . Test perfo rmed by [facility] [facility] [employer], [employer], d/b/a [facility] roup, [address], [place] [address] , Bj Mac ra, DO, Labor atory Direc tor. Gardn erell a vagin gail, Dinah da speci es: Genom ic DNA is isola gio from patie nt speci mens by stand ana luisa labor atory techn iques and anshu zed using custo m OpenA rray plate s, perfo rmed on the Quant Studi o 12K Flex Real Time PCR syste m. A posit dana resul t is provi ded for patho genic bacte stacia, virus and/o r funga l speci es based on detec tion of ampli ficat ion produ cts. Jennifer l vagin al holly resul ts of Jennifer l or [place] gio are deter mined by calcu latin g the ratio of the organ ism to the total bacte stacia prese nt in the speci men, and poonam ring that ratio to a PathG roup patie nt popul ation . Overa ll resul ts of Jennifer l, Borde rline and Abnor mal are deter mined using a proba bilit y model which was devel oped by an exten sive anshu sis and integ ratio n of clini mary beth thres holds for marke r organ isms on a large set of sympt omati c & asymp tomat ic speci mens. Patie nt popul ation s with diffe rent demog raphi cs from the PathG roup model popul ation may have diffe rent indic ator organ isms with diffe rent relat dana ratio s, which would influ ence the final resul ts. Resul ts shoul d be inter prete d in the magalis xt of all clini mary beth and labor atory findi ngs. The test was devel oped and its perfo rmanc e sam cteri stics deter mined by [employer], [employer] d/b/a PathTahmina rouchris. It has not been clear ed or appro cheryl by the U.S. Food and Drug Admin istra tion. The FDA has deter mined that such clear ance or appro sadie is not neces aimee. Perti nent refer ence inter vals are avail able from the labor atory on reque st. Test( s) perfo rmed by [facility] [employer], [employer], d/b/a PathG rouchris, [address], [place] [address] , Bj Mac ra, DO, Labor atory Dire tor. Not Available [facility] ([facility]) [address], [place], [address], 05/29/2020 18:57:47 Result Notes None recorded. Problems Name Problem SNOMED Code Status Onset Date Resolution Date Notes Provider Name and Address Organization Details Recorded Time Hypertens dana disorder 96128339 Active 2017 Essential (primary) hypertens ion;Recor ded Elsewhere : No Locati on: [facility] So urce: EHR Chron ic: N Practic e ID: 0001 Bill able Time: 08:30:00 AM Not Available [employer] 0 18:49:54 Finding of pattern of menstrual cycle [id number] Active 2015 Menometro rrhagia;R ecorded Elsewhere : No Locati on: [facility] So urce: EHR Chron ic: N Practic e ID: 0001 Bill able Time: 04:15:00 PM Not Available [employer] 0 18:49:54 Migraine [id number] Active 2017 Migraine; Recorded Elsewhere : No Locati on: [facility] So urce: EHR Chron ic: N Practic e ID: 0001 Bill able Time: 08:30:00 AM Not Available [employer] 0 18:49:54 Clinical finding Active 2016 Encounter for surveilla nce of injectabl e contracep tive;Kuldip rded Elsewhere : No Locati on: [facility] So urce: EHR Chron ic: N Practic e ID: 0001 Bill able Time: 09:45:00 AM Not Available [employer] 0 18:49:[address] Concept Active 2018 Encntr for vp respiratory exam (general) (routine) w/o abn findings; Recorded Elsewhere : No Locati on: [facility] So urce: EHR Chron ic: N Practic e ID: 0001 Bill able Time: 01:00:00 PM Not Available [employer] 0 18:49:54 Screening for malignant neoplasm of rectum Active 2016 Screening for malignant neoplasms of the rectum;Re corded Elsewhere : No Locati on: [facility] So urce: EHR Chron ic: N Practic e ID: 0001 Bill able Time: 08:30:00 AM Not Available [employer] 0 18:49:54 Headache [id number] Active 2015 DUNLAP;Record ed Elsewhere : No Locati on: [facility] So urce: EHR Chron ic: N Practic e ID: 0001 Bill able Time: 04:15:00 PM Not Available [employer] 0 18:49:54 test negative [id number] Active 2015 Encounter for test, result negative; Recorded Elsewhere : No Locati on: [facility] So urce: EHR Chron ic: N Practic e ID: 0001 Bill able Time: 01:45:00 PM Not Available [facility] 0 18:49:54 Screening for malignant neoplasm of cervix Active 2016 Encounter for screening for malignant neoplasm of cervix;Re corded Elsewhere : No Locati on: [facility] So urce: EHR Chron ic: N Practic e ID: 0001 Bill able Time: 08:30:00 AM Not Available [employer] 0 18:49:[address] Concept Active 2018 Encntr for general adult medical exam w/o abnormal findings; Recorded Elsewhere : No Locati on: [facility] So urce: EHR Chron ic: N Practic e ID: 0001 Bill able Time: 01:00:00 PM Not Available [employer] 0 18:49:54 Specializ ed medical examinati on Active 2011 Routine gynecolog ical examinati on;Practi ce ID: 0001 Not Available [employer] 0 18:49:54 Amenorrhe a [id number] Active 2014 AMENORRHE A;Practic e ID: 0001 Not Available [employer] 0 18:49:55 Adult health examinati on Active 2014 Routine general medical examinati on at a health care facility; Practice ID: 0001 Not Available [employer] 0 18:49:55 Itching [id number] Active 2016 Pruritus; Recorded Elsewhere : No Locati on: [facility] So urce: EHR Chron ic: N Practic e ID: 0001 Bill able Time: 09:00:00 AM Not Available [facility] 0 18:49:55 Emotional state finding Active 2018 Anxiety depressio n;Recorde d Elsewhere : No Locati on: [facility] So urce: EHR Chron ic: N Practic e ID: 0001 Bill able Time: 01:00:00 PM Not Available [facility] 0 18:49:55 Vaginitis and vulvovagi nitis Active 2014 Vaginitis and vulvovagi nitis, unspecifi ed;Practi ce ID: 0001 Not Available [facility] 0 18:49:55 Abnormal uterine bleeding [id number] 100 Active 2015 Other specified abnormal uterine and vaginal bleeding; Practice ID: 0001 Not Available [facility] 0 18:49:56 Problem Notes None recorded. Medical Equipment None Reported. Allergies No known drug allergies Medications Name Sig Start Date Stop Date Status Note LastModified by Organization Details LastModified Time cyclobenz aprine 10 mg tablet 03/28 completed Not Available Not Available Not Available Anti-Diar rheal (loperami de) 2 mg tablet TK 1 T PO Q 4 H FOR 3 DAYS PRN FOR LOOSE STOOL 05/28 completed Not Available Not Available Not Available doxepin 50 mg capsule 03/28 completed Not Available Not Available Not Available clonidine HCl 0.1 mg tablet 03/28 completed Not Available Not Available Not Available trazodone 50 mg tablet 03/28 completed Not Available Not Available Not Available ibuprofen 800 mg tablet 03/28 completed Not Available Not Available Not Available fluconazo le 150 mg tablet take 1 tablet by oral route once 05/28 completed Not Available Not Available Not Available valacyclo vir 1 gram tablet take 1 tablet by oral route every day 10/19 completed Prescrib ed Elsewher e: No Locat ion: [facility] M odify By: tamara pateluntbigrit DateTime : 06/08/20 16 10:10:05 AM Not Available Not Available Not Available hydrocodo ne 5 mg-acetam inophen 500 mg capsule take 1 capsule by oral route every 6 hours as needed active Prescrib ed Elsewher e: Yes [facility] By: cmedical Encount er DateTime : 01/03/20 15 10:30:00 AM Not Available Not Available Not Available ondansetr on HCl 8 mg tablet 03/28 completed Not Available Not Available Not Available fluconazo le 200 mg tablet Take 1 tablet on days 1, 4, and 7 for a total of 3 doses. active Not Available Not Available No t Available naltrexon e 50 mg tablet TK 1 T PO D 05/28 completed Not Available Not Available Not Available sumatript an 25 mg tablet 03/28 completed Not Available Not Available Not Available Monistat 7 2 % vaginal cream insert 1 applicat orful by vaginal route every day at bedtime 03/11 completed Prescrib ed Elsewher e: No Locat ion: [facility] odify By: tamara ward DateTime : 02/16/20 15 12:00:00 PM Not Available Not Available Not Available hydroxyzi ne pamoate 50 mg capsule 03/28 completed Not Available Not Available Not Available metronida zole 500 mg tablet Take 1 tablet twice a day by oral route for 7 days. 05/28 completed Not Available Not Available Not Available ciproflox acin 500 mg tablet TK 1 T PO Q 12 H FOR 7 DAYS 05/28 completed Not Available Not Available Not Available triamcino lone acetonide 0.1 % topical cream APPLY TO ECZEMA TWICE DAILY FOR UP TO 2 WEEKS PER MONTH NEEDED active Not Available Not Available No t Available ondansetr on 8 mg disintegr ating tablet 05/28 completed Not Available Not Available Not Available nystatin- triamcino lone 100,000 unit/gram -0.1 % topical ointment APPLY TO THE AFFECTED AREA(S) BY TOPICAL ROUTE 2 TIMES PER DAY x 7 days active Not Available Not Available No t Available omeprazol e 10 mg capsule,d elayed release take 2 capsule by oral route every day before a meal 2015 active Prescrib ed Elsewher e: Yes [facility] By: amken ward DateTime : 03/11/20 16 04:15:00 PM Not Available Not Available Not Available Depo-Prov era 150 mg/mL intramusc ular suspensio n INJECT 1 MILLILIT ER BY INTRAMUS CULAR ROUTE EVERY 3 MONTHS 10/19 completed Prescrib ed Elsewher e: No Locat ion: [facility] odify By: amken ward DateTime : 01/14/20 18 08:50:39 AM Not Available Not Available Not Available baclofen 10 mg tablet 03/28 completed Not Available Not Available Not Available hydrocodo ne 7.5 mg-acetam inophen 325 mg tablet TAKE 1 TABLET BY MOUTH THREE TIMES DAILY NEEDED FOR PAIN active Not Available Not Available No t Available lisinopri l 10 mg tablet active Not Available Not Available Not Available famotidin e 10 mg/mL intraveno us solution infuse by intraven ous route every 12 hours 10/19 completed Prescrib ed Elsewher e: Yes [facility]oca [facility]ion: [facility] odify By: amken ward DateTime : 01/03/20 15 10:30:00 AM Not Available Not Available Not Available butalbita l-aspirin -caffeine 50 mg-325 mg-40 mg capsule take 1 capsule by oral route every 4 hours as needed not to exceed 6 capsules per 24hrs 10/19 completed Prescrib ed Elsewher e: Yes Loca tion: [facility] odify By: amken ward DateTime : 03/11/20 16 04:15:00 PM Not Available Not Available Not Available omeprazol e 20 mg capsule,d elayed release active Not Available Not Available Not Available Valtrex 500 mg tablet take 1 tablet by oral route 2 times every day for 10 days 02/15 completed Prescrib ed Elsewher e: No Locat ion: [facility] odify By: tgjohn arriaga DateTime : 02/16/20 15 12:00:00 PM Not Available Not Available Not Available alprazola m 2 mg tablet TAKE 1 TABLET BY MOUTH THREE TIMES DAILY active Not Available Not Available No t Available lisinopri l 10 mg-hydroc hlorothia zide 12.5 mg tablet TK 1 T PO QD active Not Available Not Available No t Available lisinopri l 2.5 mg tablet take 1 tablet by oral route every day 10/19 completed Prescrib ed Elsewher e: Yes Loca tion: Kamryn jose raul [facility] odify By: amken Blunt ncounter DateTime : 10/08/19 12 11:00:00 AM Not Available Not Available Not Available Bactrim DS 800 mg-160 mg tablet take 1 tablet by oral route every 12 hours 03/11 completed Prescrib ed Elsewher e: No [facility] By: amken Blunt ncounter DateTime : 02/21/20 15 09:24:51 AM Not Available Not Available Not Available buprenorp augustina 2 mg-naloxo ne 0.5 mg sublingua l tablet 03/28 completed Not Available Not Available Not Available Wellbutri n XL 300 mg 24 hr tablet, extended release take 1 tablet by oral route every day 2018 active Prescrib ed Elsewher e: No Locat ion: [facility] jose raul [facility] odify By: kenny tz Encou nter DateTime : 10/20/19 19 01:00:00 PM Not Available Not Available Not Available bupropion HCl (bulk) 100 % powder 10/19 completed Prescrib ed Elsewher e: Yes Loca tion: [facility] odify By: amken Blunt ncounter DateTime : 01/03/20 15 10:30:00 AM Not Available Not Available Not Available Vicodin HP active Not Available Not Available Not Available hydrochlo rothiazid e 12.5 mg tablet 03/28 completed Not Available Not Available Not Available Chantix Continuin g Month Box 1 mg tablet 03/28 completed Not Available Not Available Not Available Solosec [address] granules in packet take 1 packet and mix completl y with yogurt, pudding, or applesau ce, do not chew granules . 2019 active Not Available Not Available Not Avai lable Aimovig Autoinjec tor 70 mg/mL subcutane ous auto-inje ctor active Not Available Not Available Not Available Vitals Date Recorded Body height Body mass index (BMI) Body weight Systolic blood pressure Diastolic blood pressure Provider Name and Address Organization Details Last Updated DateTime 03/28/2020 162.56 cm 29 kg/m2 38547.11 g 132 mm[Hg] 77 mm[Hg] Trena [facility] 0 11:27:04 Date Recorded Body height Body mass index (BMI) Body weight Systolic blood pressure Diastolic blood pressure Provider Name and Address Organization Details Last Updated DateTime 05/28/2020 162.56 cm 29 kg/m2 82136.11 g 130 mm[Hg] 82 mm[Hg] Trena [facility] 0 12:31:44 Social History None recorded. Functional Status None recorded. Mental Status None recorded. Family History Nothing Reported. Medical History Condition Response Hypertension Y Gynecological History Statement/Question Response Current Control Method None Obstetrics History GPAL:G 0 P 0 0 0 0 Past Encounters Encounter ID Performer Location Encounter Start Date Encounter Closed Date Diagnosis/Indication Diagnosis SNOMED-CT Code Diagnosis ICD10 Code Diagnosis Note [id number] Valeria Lizarraga [facility] [address],[place] [address] 03/28/2020 11:04:20 03/28/2020 11:41:50 Vaginitis 14303688 N76.0 Suspect yeast infection from wearing wet suit for long period of time on her beach vacations. Vag cx's were sent to confirm no other issues but treated for probable yeast today to start. Rx mycolog & diflucan sent. Time spent in visit is a total of 15 mins with at least 50% of visit consisting of counseling and review of plan of care. [id number] Valeria Lizarraga [facility] [address],[place] [address] 05/28/2020 12:22:14 05/28/2020 12:53:16 Vaginitis 69348958 N76.0 We agreed to send vaginal cx's & treat when results return. Mycolog ointment sent for ext itching. Baking soda soaks & vegetable based moisturize r daily also recommende d. We talked about possible treatment with estrace for atrophic vaginitis that is common in menopause. Time spent in visit is a total of 15 mins with at least 50% of visit consisting of counseling and review of plan of care. Health Concerns Section Related Observation LastModified by Organization Detai ls LastModified Time None Recorded Concern Status LastModified by Organization Details LastModified Time None Recorded Advance Directives Directive None Recorded Payers Encounter Date Sequence Insurance Name Policy Number Policy Harvey Covered Member ID Harvey Member ID Guarantor Name 03/28/2020 1 [facility] [id number] Farshad Kennedymarcos [id number] Marjorie Gupta Mallika 05/28/2020 1 [facility] [id number] Farshad Kennedymarcos [id number] Marjorie Tena Notes Date Note Type Note Provider Name and Address Organization Details Recorded Time 03/28/2020 text/html Vaginal/Vulvar ProblemReported bypatient.Notes:Toma nichole is a 54yo white female here today for concerns of vag itching & d/c after returning from a beach vacation. Spent much time in wet suit. In the water frequently & on sand. she declines need for STD screening. Neg urinary sx's Neg GI issues Neg pelvic pain or AUB USSAN García- [address], [place], [address], [facility] 03/28/2020 11:39:50 05/28/2020 text/html Vaginal/Vulvar ProblemReported bypatient.Notes:Toma nichole is a 54yo white postmenopausal female here today with complaints of recurring vaginal itch (int/ext) since returning from [place]. While in [place] she had a UTI. Went to urgent care. Given ABX Cipro. Started having significant diarrhea to the point she had to go back to urgent care for rehydration. She was given diflucan at that time as well b/c itching started back up. Itching as continued since her return this past . She has not used anything else since her return. She is not currently SA. She is menopausal. Neg urinary sx's. SUSAN García- [address], [place], [address], [facility] 05/28/2020 12:51:50 OBGyn Episode Ob Episode Information Episode Created Date Number of Fetuses Patient Bloodtype Patient rh Status Prepregnancy Weight lbs Domestic Partner Domestic Partner Phone Father Name French Pastry Cook Status 03/28/20 20 1 CLOSED Fetus Data First Name Last Name Admitted to NICU Weight (g) Sex Living Outcome Pediatric Complications Fetus ID Race Codes Race Delivery Type [id number] Vaginal Delivery Sergio Calculation Initial Sergio Date Initial Exam Date Initial Exam Provider Initial Ultrasound Date Last Menstrual Period Date Ultra Sound Weeks Gestation 0 Eighteen To Twenty Week Sergio Update Ultra Sound Date Fundal Height At Umbil Quickening Date Ultra Sound Latest Weeks Gestation Final Sergio Confirmed By Final Sergio Confirmed Date Final Sergio Date Ultra Sound Latest Days Gestation 0 0 Menstrual History Last Menstrual Date Menses Monthly On Bcp Conception Prior Menses Frequency Hcg Plus Date Menarche Onset Age Delivery Information Delivery Date Delivery Type Labor Anesthesia Weeks Gestation Incision Type Labor Labor Length Hrs Delivered By Post Complications Tubal Sterilization Discharge Date Comments 2 Discharge Information Feeding Method Contraceptive Method Maternal HG B and HCT Levels Ob Episode Information Episode Created Date Number of Fetuses Patient Bloodtype Patient rh Status Prepregnancy Weight lbs Domestic Partner Domestic Partner Phone Father Name French Pastry Cook Status 03/28/20 20 1 CLOSED Fetus Data First Name Last Name Admitted to NICU Weight (g) Sex Living Outcome Pediatric Complications Fetus ID Race Codes Race Delivery Type [id number] Vaginal Delivery Sergio Calculation Initial Sergio Date Initial Exam Date Initial Exam Provider Initial Ultrasound Date Last Menstrual Period Date Ultra Sound Weeks Gestation 0 Eighteen To Twenty Week Sergio Update Ultra Sound Date Fundal Height At Umbil Quickening Date Ultra Sound Latest Weeks Gestation Final Sergio Confirmed By Final Sergio Confirmed Date Final Sergio Date Ultra Sound Latest Days Gestation 0 0 Menstrual History Last Menstrual Date Menses Monthly On Bcp Conception Prior Menses Frequency Hcg Plus Date Menarche Onset Age Delivery Information Delivery Date Delivery Type Labor Anesthesia Weeks Gestation Incision Type Labor Labor Length Hrs Delivered By Post Complications Tubal Sterilization Discharge Date Comments 5 Discharge Information Feeding Method Contraceptive Method Maternal HG B and HCT Levels Ob Episode Information Episode Created Date Number of Fetuses Patient Bloodtype Patient rh Status Prepregnancy Weight lbs Domestic Partner Domestic Partner Phone Father Name French Pastry Cook Status 03/28/20 20 1 CLOSED Fetus Data First Name Last Name Admitted to NICU Weight (g) Sex Living Outcome Pediatric Complications Fetus ID Race Codes Race Delivery Type [id number] Vaginal Delivery Sergio Calculation Initial Sergio Date Initial Exam Date Initial Exam Provider Initial Ultrasound Date Last Menstrual Period Date Ultra Sound Weeks Gestation 0 Eighteen To Twenty Week Sergio Update Ultra Sound Date Fundal Height At Umbil Quickening Date Ultra Sound Latest Weeks Gestation Final Sergio Confirmed By Final Sergio Confirmed Date Final Sergio Date Ultra Sound Latest Days Gestation 0 0 Menstrual History Last Menstrual Date Menses Monthly On Bcp Conception Prior Menses Frequency Hcg Plus Date Menarche Onset Age Delivery Information Delivery Date Delivery Type Labor Anesthesia Weeks Gestation Incision Type Labor Labor Length Hrs Delivered By Post Complications Tubal Sterilization Discharge Date Comments 5 Discharge Information Feeding Method Contraceptive Method Maternal HG B and HCT Levels Ob Episode Information Episode Created Date Number of Fetuses Patient Bloodtype Patient rh Status Prepregnancy Weight lbs Domestic Partner Domestic Partner Phone Father Name French Pastry Cook Status 03/28/20 20 1 CLOSED Fetus Data First Name Last Name Admitted to NICU Weight (g) Sex Living Outcome Pediatric Complications Fetus ID Race Codes Race Delivery Type [id number] Vaginal Delivery Sergio Calculation Initial Sergio Date Initial Exam Date Initial Exam Provider Initial Ultrasound Date Last Menstrual Period Date Ultra Sound Weeks Gestation 0 Eighteen To Twenty Week Sergio Update Ultra Sound Date Fundal Height At Umbil Quickening Date Ultra Sound Latest Weeks Gestation Final Sergio Confirmed By Final Sergio Confirmed Date Final Sergio Date Ultra Sound Latest Days Gestation 0 0 Menstrual History Last Menstrual Date Menses Monthly On Bcp Conception Prior Menses Frequency Hcg Plus Date Menarche Onset Age Delivery Information Delivery Date Delivery Type Labor Anesthesia Weeks Gestation Incision Type Labor Labor Length Hrs Delivered By Post Complications Tubal Sterilization Discharge Date Comments 6 Discharge Information Feeding Method Contraceptive Method Maternal HG B and HCT Levels
[2024-09-15 07:30] LABS: Hematocrit 45.4 % (37.0-47.0); Mean Corpuscular Hemoglobin 32.2 pg (26-34); Mean Corpuscular Volume 97.4 fl (80-100); Mean Platelet Volume 9.7 fl (7.4-10.4); Platelet Count Result 252 k/mm3 (150-375); Red Blood Count 4.66 M/mm3 (4.2-5.4); Red Cell Distribution Width 13.1 % (11.5-14.5); White Blood Count 4.4 K/mm3 (4.5-10.0)
[2024-09-15 07:42] LABS: Cholesterol 262 mg/dL (0-200); HDL Direct 52 mg/dL; Triglycerides 229 mg/dL (<150)
[2024-09-15 07:53] LABS: LDL Cholesterol Direct 152 mg/dL
[2024-09-15 09:52] LABS: Vitamin D 25 Hydroxy 14.9 ng/mL
== END 2024-09-15 06:41 | disposition home or self-care (01) ==
LOC: ANHLAB 06:42
PROVIDERS: PCP Family Medicine; Visit Provider Family Medicine
DX: E55.9 Vitamin D deficiency, unspecified (principal); I10 Essential (primary) hypertension; F11.90 Opioid use, unspecified, uncomplicated; G43.909 Migraine, unspecified, not intractable, without status migrainosus; M54.50 Low back pain, unspecified; G89.29 Other chronic pain; G47.9 Sleep disorder, unspecified; Z00.00 Encounter for general adult medical examination without abnormal findings
CPT/HCPCS: 36415; 80061; 82306; 84443; 85027

== ENCOUNTER 2025-02-28 09:59 | Outpatient (CLI) | payer OTHER, SELFPAY ==
--- NOTE | ~2025-02-28 | MM_ITS ---
EXAMINATION: MM screening [facility] BI w chucho HISTORY: Screening TECHNIQUE: Craniocaudal and mediolateral oblique 3-D tomosynthesis images were obtained and synthetic 2-D images were generated. CAD analysis was submitted and interpreted. COMPARISON: Mammograms from 10/12/2023 and 07/26/2020 BREAST PARENCHYMAL COMPOSITION: There are scattered areas of fibroglandular density. FINDINGS: There is no evidence of suspicious mass, calcification, or architectural distortion in either breast to suggest malignancy. There has been no significant interval change. IMPRESSION: 1. No mammographic evidence of malignancy. Recommend routine screening mammography in one year. BI-RADS Category 1: Negative Reviewed, dictated and finalized at location Q. IMPRESSION: 1. No mammographic evidence of malignancy. Recommend routine screening mammogra phy in one year. BI-RADS Category 1: Negative
== END 2025-02-28 10:00 | disposition home or self-care (01) ==
LOC: ANHFOHIMG 10:02
PROVIDERS: PCP Family Medicine; Visit Provider Family Medicine
DX: Z12.31 Encounter for screening mammogram for malignant neoplasm of breast (principal)
CPT/HCPCS: 77063; 77067

== ENCOUNTER 2025-06-20 08:07 | Outpatient (CLI) | payer OTHER, SELFPAY ==
--- OUTSIDE RECORDS SUMMARY | 2025-06-19 10:45 | XMS_ITS | Encounter Summary ---
Author Organization [facility] Address [address] [place] [id number] Care Team Providers Care Beef Killer Name Role Phone Berry Puga MD Primary Care Provider [phone] Reason for Visit * Reason Comments CHF CATH F/U Encounter Details Date Type Department Care Team (Late st Contact Info) Description 06/19/2025 10:45 AM HONING JOB SETTER Office Visit [facility], [address] [place], [place] [id number] Isis Grewal, SHOW HOST OR HOSTESS-C [facility]. [address] [place], [place] [id number] CHF (CATH F/U) Social History Tobacco Use Types Packs/Day Years [...] No 04/08/2023 Social Connection and Isolation Panel Answer Date Recorded In a typical week, how many times do you talk on the phone with family, friends, or neighbors? Twice a week 04/08/2023 How often do you get together with friends or re latives? Once a week 04/08/2023 How often do you attend presybeterian or restorationism serv ices? Never 04/08/2023 Do you belong to any clubs o r organizations such as presybeterian groups, unions, fraternal or athletic groups, or [...] Recorded Patient Health Questionnaire-2 Score 0 04/08/2023 [facility] Occupat ional Health - [...] place to sleep or slept in a chcf (including now)? No 04/08/2023 Humiliation, Afraid, Rape, and Kick questionnair e Answer Date Recorded Within the last year, have y ou been afraid of your partner or ex-partner? No 05/22/2025 Within the last year, have y ou been humiliated or emotionally abused in other ways by your partner or ex-partner? No Within the last year, have y ou been kicked, hit, slapped, or otherwise physically hurt by your partner or ex-partner? No 05/22/2025 Within the last year, have y ou been raped or forced to have any kind of sexual activity by your partner or ex-partner? No 05/22/2025 Social Connection and Isolation Panel Answer Date Recorded In a typical week, how many times do you talk on the phone with family, friends, or neighbors? More than three times a week 05/22/2025 How often do you get togethe r with friends or relatives? More than three times a week 05/22/2025 How often do you attend chur ch or restorationism services? Never 05/22/2025 Do you belong to any clubs o r organizations such as presybeterian groups, unions, fraternal or athletic groups, or school groups? No 05/22/2025 How often do you attend meet ings of the clubs or organizations you belong to? Never 05/22/2025 Are you , , di vorced, , never , or living with a partner? Patient declined 05/22/2025 Overall Financial Resource Strain (CARDIA) Answe r Date Recorded How hard is it for you to pa y for the very basics like food, housing, medical care, and heating? Not very hard 05/22/2025 [facility] of Occupat ional Health - Occupational Stress Questionnaire Answer Date Recorded Do you feel stress - tense, restless, nervous, or anxious, or unable to sleep at night because your mind is troubled all the time - these days? Not at all 05/22/2025 Exercise Vital Sign Answer Date Recorde d On average, how many days pe r week do you engage in moderate to strenuous exercise (like a brisk walk)? Patient unable to answer 05/22/2025 On average, how many minutes do you engage in exercise at this level? 0 min 05/22/2025 Hunger Vital Sign Answer Date Recorded Within the past 12 months, y ou worried that your food would run out before you got the money to buy more. Never true 05/22/20 Within the past 12 months, t he food you bought just didn't last and you didn't have money to get more. Never true 05/22/2025 PRAPARE - Transportation Answer Date Re corded In the past 12 months, has l ack of transportation kept you from medical appointments or from getting medications? No 04/29 In the past 12 months, has l ack of transportation kept you from meetings, work, or from getting things needed for daily living? No 05/22/2025 Housing Stability Vital Sign Answer Joshua e Recorded In the last 12 months, was t here a time when you were not able to pay the mortgage or rent on time? No 05/22/2025 In the past 12 months, how m any times have you moved where you were living? 0 05/22/2025 Homeless in the Last Year No 2024 [id number] Health Literacy Answer Date Recor ded How often do you need to hav e someone help you when you read instructions, pamphlets, or other written material from your doctor or pharmacy? Never 05/22/2025 [employer] Answer Date Recorded In the past 12 months has th e [employer], oil, or water [employer] threatened to shut off services in your home? No 05/22/2025 Comments No Sex and Gender Information Value Date Recorded Sex Assigned at Female 05/22/2025 7:57 PM HONING JOB SETTER Legal Sex Female 5:43 PM CDT Gender Identity Female 05/22/2025 7:57 PM HONING JOB SETTER Sexual Orientation Not on file documented as of this encounter Last Filed Vital Signs Vital Sign Reading Time Taken Comments Blood Pressure 154/100 06/19/2025 10:53 AM HONING JOB SETTER Pulse 55 06/19/2025 10:53 AM HONING JOB SETTER Temperature - - Respiratory Rate - - Oxygen Saturation 98% 06/19/2025 10: 53 AM HONING JOB SETTER Inhaled Oxygen Concentration - - Weight 71.1 kg (156 lb 12.8 oz) 025 10:53 AM HONING JOB SETTER Height 162.6 cm (5' 4) 06/19/2025 10:5 3 AM HONING JOB SETTER Body Mass Index 26.91 06/19/2025 10:53 AM HONING JOB SETTER documented in this encounter Functional Status * Are you deaf or do you have serious difficulty hearing Answer Date of Assessment Author Status Yes 05/22/2025 7:15 PM HONING JOB SETTER Darin Powell R N Active * Are you blind or do you have serious difficulty seeing, even when wearing glasses? Answer Date of Assessment Author Status No 05/22/2025 7:15 PM HONING JOB SETTER Darin Powell R N Active * Do you have serious difficulty walking or climbing stairs? Answer Date of Assessment Author Status No 05/22/2025 7:15 PM HONING JOB SETTER Darin Powell R N Active * Do you have difficulty dressing or bathing? Answer Date of Assessment Author Status No 05/22/2025 7:15 PM HONING JOB SETTER Darin Powell R N Active * Because of a physical, mental, or emotional condition, do you have difficulty doing errands alone such as visiting a doctor's office or shopping? Answer Date of Assessment Author Status No 05/22/2025 7:15 PM HONING JOB SETTER Darin Powell R N Active documented as of this encounter Mental Status * Because of a physical, mental, or emotional condition, do you have serious difficulty concentrating, remembering, or making decisions? Answer Entry Date Author Status No 05/22/2025 7:15 PM Darin Boss R N Active documented in this encounter Progress Notes * Isis Grewal, LUIS - 06/19/2025 10:45 AM CST Reason for visit: NSTEMI, CHF, NISCM HPI: Jessica Tena is a 59-year-old female patient with a past medical hx of anxiety, hypertension, GERD, hyperlipidemia presents to [facility] recently for SOB. Found to have EF 20-25%, new onset, elevated trop, CHF. She was diuresed, underwent right and left HC. Non obstructive CAD on cath.She is wearing a l ifevest. Reports feeling OK overall, just tired. She was taking aldactone 25mg daily instead of 12.5mg daily which was helping her BP. She is starting cardiac rehab. Denies CP or SOB. BP today elevated but reviewed BP log which was reasonable control. Assessment and Plan: acute combined CHF/NICM. EF 20-25% with grade III DD, moderate global hypokinesis RHC--PA 22/6, PCW 5, CO 3.5, CI 2.1 GDMT: tolerating coreg, jardiance, oral lasix, aldactone, lisinopril. Plan to stop lisinopril (generic entresto is $5.00 a month) 72 hour wash out and start entresto 24/26mg BID. Continue lifevest- starting rehab. Repeat echo august and fu after. If EF still low would like cardiac MRI. Discussed with patient. Check routine labs. Repeat CMP, mag NSTEMI [facility] 05/25 with minimal non obstructive CAD.on aspirin/statin. A1c 5.6% Elevated LFTS Concern for gallbladder wall thickening on CT- abd us done today per PCP team, no acute cholecystitis. Likely congestion--trending down with diuresis. Monitor on statin dose. Repeat ordered. Elevated ddimer Ruled out for PE 05/22 CTA chest HTN: BP control improved. TSH WNL. renal artery duplex unremarkable. EVA work up as OP for 2nd HTN work up. BP improving. Reassess need for EVA study Jessica Tena is stable from a cardiac standpoint. Cardiac rehab, labs, change to entresto. Echo august then . At next OV will address EVA. Advised to continue the current medication regimen. Advised regular exercise. Advised a cardiac diet. Follow up in the office in 3 months or sooner as needed. We discussed the plan of care and the patient verbalizes understanding and is agreeable with plan. The patient was provided office number and contact information if any problems arise. Thank you for involving us in the care of your patient. I personally spent a total of 55 minutes on the day of the encounter. This includes [id number] and des-sqql-ee-face time I provided on the day of the encounter & excludes time spent performing separately reportable services. Past Medical History[1] Past Surgical History[2] Social History[3] Family History[4] Prior to Admission medications Medication Sig Start Date End Date Taking? Authorizing Provider albuterol sulfate HFA 108 (90 Base) MCG/ACT inhaler Inhale 2 puffs into the lungs every 6 (six) hours as needed for Wheezing or Shortness of breath. 04/26/25 Yes Default History Genericprovider ALPRAZolam (XANAX) 2 MG tablet Take 1 tablet (2 mg total) by mouth 3 (three) times daily. *PATIENT THREW THESE MEDICATIONS AWAY THIS PAST WEEKEND (04/03/2023) HAS NOT HAD ANY SINCE THEN. ADVISED PATIENT TO TALK TO PCP ABOUT WEANING OFF MEDICATION INSTEAD OF JUST STOPPING ABRUPTLY. Yes Default History Genericprovider aspirin EC (ECOTRIN) 81 MG tablet Take 1 tablet (81 mg total) by mouth daily. 05/29/25 Yes Karan Santoro MD atorvastatin (LIPITOR) 40 MG tablet Take 1 tablet (40 mg total) by mouth nightly at bedtime. 05/29/25 Yes Magaly Yin NP busPIRone (BUSPAR) 7.5 MG tablet Take 1 tablet (7.5 mg total) by mouth 2 (two) times daily. 05/08/25 Yes Default History Genericprovider carvedilol (COREG) 12.5 MG tablet Take 1 tablet (12.5 mg total) by mouth 2 (two) times daily. 05/29/25 Yes Magaly Yin NP doxepin (SINEQUAN) 25 MG capsule Take 1 capsule (25 mg total) by mouth nightly at bedtime. 05/02/25 Yes Default History Genericprovider empagliflozin (JARDIANCE) 10 MG tablet Take 1 tablet (10 mg total) by mouth daily. 05/29/25 Yes Karan Santoro MD furosemide (LASIX) 40 MG tablet Take 1 tablet (40 mg total) by mouth daily. 05/29/25 Yes Karan Santoro MD HYDROcodone-acetaminophen (NORCO) 7.5-325 MG tablet Take 0.5-1 tablets by mouth every 8 (eight) hours as needed. PATIENT TRYING TO STOP TAKING THIS MEDICATION. PATIENT STATES SHE IS CURRENTLY TAKING ?? TABLET ONCE A DAY. Yes Default History Genericprovider lisinopril (PRINIVIL) 40 MG tablet Take 1 tablet (40 mg total) by mouth daily. 05/29/25 Yes Karan Santoro MD omeprazole (PRILOSEC) 40 MG capsule Take 1 capsule (40 mg total) by mouth daily. 05/04/25 Yes Default History Genericprovider spironolactone (ALDACTONE) 25 MG tablet Take 0.5 tablets (12.5 mg total) by mouth daily. Patient taking differently: Take 1 tablet (25 mg total) by mouth daily. 05/29/25 Yes Karan Santoro MD vitamin D3 (CHOLECALCIFEROL) 1.25 mg capsule Take 1 capsule (1.25 mg total) by mouth once a week. 04/26/25 Yes Default History Genericprovider Review of patient's allergies indicates: No Known Allergies Review of Systems Constitutional: Negative for chills, diaphoresis, fever, malaise/fatigue and weight loss. HENT: Negative for hearing loss. Eyes: Negative for blurred vision and double vision. Respiratory: Negative for cough, shortness of breath and wheezing. Cardiovascular: Negative for chest pain, palpitations, orthopnea, claudication, leg swelling and PND. Gastrointestinal: Negative for blood in stool, diarrhea, heartburn and nausea. Genitourinary: Negative for dysuria and hematuria. Musculoskeletal: Negative for falls, joint pain and myalgias. Skin: Negative for rash. Neurological: Negative for dizziness, tingling, focal weakness, weakness and headaches. Endo/Heme/Allergies: Does not bruise/bleed easily. Psychiatric/Behavioral: Negative for depression and memory loss. Filed Vitals: 06/19/25 1053 BP: (!) 154/100 Pulse: (!) 55 SpO2: 98% Weight: 71.1 kg (156 lb 12.8 oz) Height: 1.626 m (5' 4) Physical Exam: Physical Exam Constitutional: Appearance: She is well-developed. She is not ill-appearing. Eyes: Pupils: Pupils are equal, round, and reactive to light. Neck: Vascular: No JVD. Cardiovascular: Rate and Rhythm: Normal rate and regular rhythm. Heart sounds: Normal heart sounds. No murmur heard. Pulmonary: Effort: Pulmonary effort is normal. Breath sounds: No rales. Abdominal: General: Bowel sounds are normal. There is no distension. Palpations: Abdomen is soft. Tenderness: There is no abdominal tenderness. Musculoskeletal: General: Normal range of motion. Skin: General: Skin is warm and dry. Neurological: Mental Status: She is alert and oriented to person, place, and time. No results for input(s): WBC, RBC, HGB, HCT, MCV, MCH, MCHC, PLT, RDW, MPV, PERNEU, PERLYM, PERMON, PEREOS, PERBASO, NEUC, LYMC, MONOC, EOSC, BASOC, DTYPE inthe last 168 hours. No results for input(s): NA, K, CL, CO2, AGAP, BUN, CR, BUNCREATININ, GFRNON, GFR, GLU, CA, TP, ALB, TBIL, ALKP, AST, ALT in the last 168 hours. No results for input(s): APTT, INR, PTT in the last 168 hours. No results for input(s): CHOL, TRI, HDL, LDL, NA, K, CL, CO2, BUN, CR, CA, GLU, AGAP, TP, ALB, ALT, WBC, HGB, PLT, HGBA1C, TSH in the last 168 hours. No results for input(s): TROP, TROPIWB in the last 168 hours. No results found for this visit on 05/22/25 (from the past 52 weeks). No results found for this visit on 05/22/25 (from the past 52 weeks). EKG: EKG personally reviewed, demonstrates sr with PVCS, t wave abnormality. Imaging: USV ABD PEL OR RETRO DUPLEX COMP Result Date: 05/29/2025 RENAL-MESENTERIC DUPLEX IMAGING VASCULAR LAB Pat.Name: JESSICA TENA Kaela.ID: [id number] .Date: 05/29/2025 Refer.MD: MAGALY YIN Exam Time: 6:55:00 AM Study Type:SUZIE VS Renal Mesenteric Duplex TILA Height: 64 in Age: 7 1965,59Y Sex: F Sonogrphr: Christine Stiles RVT Pat. Stat.:Inpatient History / Clinical:HTN, PMH, Smoker, htn, hld Procedures: Yip scale, Color Doppler imaging, Doppler Spectral Analysis Race: W ++++++++++++++++++++++++++++++++++++ SUMMARY: ++++++++++++++++++++++++++++++++++++ Edie Renal artery Stenosis Criteria: < 60% = PSV >180 with RAR <3.5; >60% = PSV >180 with RAR >3.5; (RI >.80 = abnormal, kidney dz.) Right renal artery no evident narrowing, normal velocity, with RAR 2.72 . RI .65, with kidney length within normal range. Left renal arteryno evident narrowing, normal velocity, with RAR 2.97 . RI .67, with kidney length within normal range. Renal veins are patent bilaterally. Aorta no evident narrowing, triphasic. CONCLUSION: Bilateralrenal artery stenosis <60% with good kidney preservation bilaterally. ++++++++++++++++++++++++++++++++++++ MEASUREMENTS: ++++++++++++++++++++++++++++++++++++ AO-ILIAC Left Kidney Kidney Size 10 cmRight Kidney Kidney Size 9.94 cm RENAL ART Right Origin Origin PSV 152 cm/s Right Prox Prox PSV 137 cm/s Mid Mid PSV 107 cm/s Right Distal Distal PSV 99 cm/s Right RAR RAR PSV 2.72 Left Origin Origin PSV 117 cm/s Left Prox Prox PSV 166 cm/s Left Mid Mid PSV 144 cm/s Left Distal Distal PSV 164 cm/s Left RAR RAR PSV 2.97 PARENCHYMA Left Lower Pole Segmental Artery Lower Pole Segm 0.67 Left Upper Pole Segmental Artery Upper Pole Segm 0.53 Right Lower Pole Segmental Artery Lower Pole Segm 0.65 Right Upper Pole Segmental Artery Upper Pole Segm 0.64 DOPPLER Supra AO Supra AO PSV 55.9 cm/s <Electronic Signature> 05/29/2025 08:04 AM Lorene Castelan M.D. ECG 12 lead Result Date: 05/26/[address] Test Date: 2025-05-26 Pat Name: JESSICA TENA Department: 40 Room: [id number] Gender: Female Air Tucker: Elvia : 1965 Requested By: RUSSELL DELGADO Order Number: [id number] Reading MD: Haylee Bell Measurements Intervals [place] Rate: 78 P: 48 DE: 150 QRS: -34 QRSD: 104 T: 9 QT: 464 QTc: 529 Interpretive Statements SINUS RHYTHM MARKED LEFT AXIS DEVIATION [QRS AXIS < -30] MINIMAL VOLTAGE CRITERIA FOR LVH, CONSIDER NORMAL VARIANT [MEETS CRITERIA IN ONE OF: R(aVL), S(V1), R(V5), R(V5/V6)+S(V1)] MODERATE T-WAVEABNORMALITY, CONSIDER ANTEROLATERAL ISCHEMIA [-0.1+ mV T WAVE IN V3-V6] Compared to ECG 05/22/2025 1 7:19:32 Ventricular premature complex(es) no longer present T-wave abnormality still present Possible ischemia still present NG JOB SETTER XR CHEST PA+LAT Result Date: 05/26/[address] [address] EXAMINATION: PA AND LATERAL CHEST Exam date/time: 05/26/2025 8:30 AM Reason For Exam: sob Comparison: 05/22/2025 Technique: PA and lateral views. Findings: Borderline cardiomegaly. Pulmonary vasculature within normal limits. No pulmonary parenchymal consolidation. No pleural effusion. No hyperinflation. =====IMPRESSION:===== 1. No radiographic evidence of active disease the chest. Ordered By: RUSSELL DELGADO Interpreted By: Luiz Reeder MD, 05/26/2025 9:58 AM USE ECHOCARDIOGRAM W CON Result Date: 05/23/2025 Echocardiography Report Pat.Name: JESSICA TENA.ID: [id number] St.Date: 05/23/2025 Refer.MD: ENEDIAN CENTENO Exam Time: 8:02:00 AM Study Type:ECHO WITH CARDIAC DOPPLER COMP Height: 64 in Weight: 160 lb BSA: 1.78 m2 Age: 7 1965,59Y Sex: F BP: 144/91 HR: 92 bpm Sonogrphr: Shelley Jaramillo RUST Pat. Stat.:Inpatient Room: [facility] Reason for Study:HTN, Fluid overload, Elevated troponin History / Clinical:Smoker, Stroke/CVA/TIA Procedures: 2D, M-mode, Doppler, Color Flow, Definity was used to enhance endocardial definition. The study quality is technically difficult. Race: W ++++++++++++++ ++++++++++++++++++++++ SUMMARY: ++++++++++++++++++++++++++++++++++++ The left ventricular size is mildly enlarged. Estimated left ventricular ejection fraction is 20-25%. No concentric left ventricular hypertrophy. Left ventricular diastolic function is abnormal (grade 3 - restrictive filling). ??Moderate global hypokinesis is noted. The right ventricular size is mildly enlarged. Right ventricular systolic function is depressed. The left atrial volume is mildly increased (34- 41ml/M2). Atrial septum appears intact. No evidence of pericardial effusion. Inferior vena cava shows >50% collapsewith respiration consistent with normal right atrial pressure. Mild mitral regurgitation. Mild tricuspid regurgitation. Right ventricular systolic pressure is 50-60 mmHg suggestive of moderate pulmonary hypertension. ++++++++++++++++++++++++++++++++++++ FINDINGS: ++++++++++++++++++++++++++++++++++++ LV: The left ventricular size is mildly enlarged. Estimated left ventricular ejection fraction is 20-25%. No concentric left ventricular hypertrophy. Left ventricular diastolic function is abnormal ( grade 3 - restrictive filling). WM: Moderate global hypokinesis is noted. RV: The right ventricularsize is mildly enlarged. Right ventricular systolic function is depressed. IVS: No evidence of ventricular septal defect. LA: The left atrial volume is mildly increased (34- 41ml/M2). RA: Right atrial size is mildly enlarged. IAS: Atrial septum appears intact. DAGMAR: No evidence of pericardial effusion. AO: Normal aortic root. PA: Estimated right atrial pressure of 3 mmHg. SVn: Inferior vena cava shows >50% collapse with respiration consistent with normal right atrial pressure. AV: The aorticvalve is trileaflet. No evidence of aortic valve stenosis. No evidence of aortic regurgitation. MV: Mild mitral regurgitation. No evidence of mitral valve stenosis. PV: No evidence of pulmonic valve stenosis. Mild pulmonic regurgitation. TV: Mild tricuspid regurgitation. Right ventricular systolic pressure is 50-60 mmHg suggestive of moderate pulmonary hypertension. No evidence of tricuspid valvestenosis. ++++++++++++++++++++++++++++++++++++ MEASUREMENTS: ++++++++++++++++++++++++++++++++++++ DOPPLER LVOT LVOTpkPG 2 mmHg LVOTmnPG 1 mmHg LVOTpkVel 71.9 cm/s (70-110)+ LVOT SV 35 ml LVOT TVI 11.1 cm Right Atrium RA Press 3 mmHg Jaquez's Disk 20 Pulmonary Veins PVnpkVeld 76.2 cm/s PVnVs/Vd 0.3PVnpkVels 23.3 cm/s PVn A Dur 92 msec AV Forward Flow AV TVI 18.3 cm AV pkPG 5 mmHg AV pkVel 111 cm/s (100-170)+ Area (TVI) 1.9 cm2 (3-5)* AV mnPG 3 mmHg Area (Major) 2.03 cm2 (3-5)* MV Forward Flow MV DeTm 141 msec MV pkE 98.8 cm/s (60-130)+ MV E/A 1.9 MV pkA 50.9 cm/s PV Forward Flow PV pkVel 67.4 cm/s (60- 90)+ PV AC 120 msec PV pkPG 2 mmHg PV Regurg Flow PV pkVel 178 cm/s TV Regurg Flow TV pkPG 47 mmHg TV pkVel 342 cm/s (30-70)* Right Ventricle RVsys P 50 mmHg Right Ventricle 8.71 cm/s Lat E' Lat e 7.87 cm/s Lat E/E' Lat E/e 12.6 Med E' Med e 3.57 cm/s Med E/E' Med E/e 27.7 Aortic Valve Aortic Valve Ar 1.07 Aortic Valve Ve 0.65 AV DI Value 0.61 PV Antegrade Flow Acceleration Sl 387 cm/s2PV Regurgitant Flow Peak Gradient ( 13 mmHg 2D Left Ventricle LVIDd 5.87 cm (3.6- 5.2)+* LV ESV 135 ml LVIDs 4.85 cm (2.3-3.9)+* LV ESV 131 ml LngAxd 8.21 cm LVESV BP 135 ml LngAxd 8.7 cm LV EF 23.7 % LV EDV 177 ml LV EF 19.6 % LV EDV 164 ml LV EF BP 22.9 % LVEDV BP 175 ml LV SV 42 ml LngAxs 7.93 cm LV SV 32 ml LngAxs 8.23 cm LV SV BP 40 ml LVPW LVPWd 0.988 cm Right Ventricle RVIDd 2.96 cm (2.6-4.3)+ Right Ventricle 25.7 mm Right Ventricle 37.7 mm Right and Left 0.504 Major [place] 95.8 mm Ventricular Septum IVSd 0.929 cm Left Atrium LA VOLBP 72.1 ml Aorta Ao Rtd 3.3 cm (zsc 1.9) LVOT LVOT 2 cm LVOTArea 3.14 cm2 Ratios IVS Inferior vena cava IVC Diam 17.5 mm LA Biplane LAVol I BP 40.5 ml/m2 RA Single Plane Right Atrium MO 18.5 mm Right Atrium Sy 55.1 ml Right Atrium Sy 56.6 mm Right AtriumSy 31 ml/m2 Right Atrium Sy 19.8 cm2 MMODE TA Tricuspid Annul 14.1 mm <Electronic Signature> 05/23/2025 09:59 PM Russell Delgado M.D. US ABD LIMITED Result Date: 05/23/2025 [facility] [address] [place], [place] [address] IMAGINGSTUDIES: US ABD LIMITED DATE: 05/23/2025 9:21 AM HISTORY: CT revealed Mild gallbladder wall thickening can also be a sequela of CHF. Correlate for clinical findings of acute cholecystitis and consider ultrasound if indicated. 59-year-old female. CDU patient. On CT abdomen pelvis without contrast 05/22/2025, mild gallbladder wall thickening, possibly resulting from congestive heart failure although cholecystitis was not excluded. On CTA chest 05/22/2025, mild pericholecystic fluid or inflammatory changes. Follow-up. COMPARISON: CT abdomen pelvis without contrast 05/22/2025. CTA chest 05/22/2025. DISCUSSION: Liver echogenicity within normal limits. Liver length of 14 cm (on 05/22/2025 CT, hepatic craniocaudal length of 16.3 cm). No focal hepatic mass or intrahepatic biliary ductal dilatation. Color doppler imaging of the hepatic veins, inferior vena cava and portal vein and pulse Doppler imaging of the portal vein. Appropriate flow direction in the portal vein. Mildly prominent hepatic veins could be due to elevated right heart pressure. Adequately distended gallbladder. No apparent gallstones. Minimal gallbladder sludge. Gallbladder wall is normal at 1.5 mm thickness. No sonographic Manuel's sign. No pericholecystic fluid. Common bile duct is normal at 3.7 mm diameter. Bowel gas partially obscures the pancreatic head and tail. Echogenic visualized pancreas could be due to fattyinfiltration. Severe pancreatic atrophy on CT. Right kidney 10 x 5.5 x 5.5 cm. No hydronephrosis orapparent renal mass. Normal color Doppler signal within the right kidney. IMPRESSION: 1. Minimal gallbladder sludge. No discrete gallstones. No sonographic evidence of acutecholecystitis. No intrahepatic or extrahepatic biliary ductal dilation. 2. Partially obscured pancreas. Atrophic echogenic pancreas. 3. Mildly prominent hepatic veins suggesting elevated right heart p ressure. Ordered By: ENEDINA CENTENO Interpreted By: Yovany Palmer, 05/23/2025 4:[address] ABD+PEL WO CON Result Date: 05/22/2025 [facility] [facility] [address] [place], [place] [address] Examination: CT abdomen and pelvis without IV contrast. Clinical Information: Abnormal findings on a recentCT of the chest requiring further evaluation. Comparison: CT chest 05/22/2025 Technique: IV contrast: None Oral contrast: None. Technical comments: Standard technique. Dose reduction: This CT exam was performed using one or more of the following dose reduction techniques: Automated exposure control, adjustment of the mA and/or kV according to patient size, and/or use of iterative reconstruction technique. Findings: LOWER CHEST The heart is enlarged. Small right and trace left pleural effusions.Interlobular septal thickening compatible with mild pulmonary edema. UPPER ABDOMEN Liver and bile ducts: Normal in size and contour. No biliary dilatation. Gallbladder: Gallbladder in situ. Mild gallbladder wall thickening. Pancreas: Severe pancreatic atrophy. Spleen: Negative. RETROPERITONEUM Adrenals: Negative. Kidneys: Contrast in the urinary collection system. No hydroureteronephrosis. Symmetric bilateral perinephric fat stranding is nonspecific. Lymph nodes: No lymphadenopathy in the abdomen or pelvis. BOWEL AND PERITONEUM Bowel: Normal in caliber and wall thickness. Colonic diverticulosis. The appendix is normal. Free air or fluid: Trace fluid in the pelvis could relate to volume overload. VASCULATURE The abdominal aorta and main branches are unremarkable. PELVIS No abnormality. BONES/SOFT TISSUES No significant lesion. Impression: 1. Nonspecific symmetric bilateral perinephric fat stranding can be seen chronically. Correlate clinically for findings of acute pyelonephritis. 2. Cardiomegaly with findings of volume overload including small right and trace left pleural effusions and mild pulmonary edema. Trace fluid in the pelvis is likely also related to volume overload. 3. Mild gallbladder wall thickening can also be a sequela of CHF. Correlate for clinical findings of acute cholecystitis and consider ultrasound if indicated. 4. Additional chronic nonemergent findings as above. Referred By: Interpreted By: Binh Collado MD, 05/22/2025 7:48 PM ECG 12 lead Result Date: 05/22/[address] Test Date: 2025-05-22 Pat Name: JESSICA TENA Department: 41 Room: C07 Gender: Female Air Tucker: [id number] : 1965 Requested By: AMINTA OSEI Order Number: [id number] Reading MD: Russell Delgado Measurements Intervals [place] Rate: 100 P: 43 DE: 134 QRS: -14 QRSD: 98 T: 55 QT: 370 QTc: 479 Interpretive Statements SINUS TACHYCARDIA POSSIBLE LEFT ATRIAL ENLARGEMENT [-0.1mV P-WAVE IN V1/V2] NONSPECIFIC T-WAVE ABNORMALITY ABNORMAL RHYTHM ECG Compared to ECG 04/08/2023 14:21:26 Sinus rhythm no longer present Myocardial infarct finding no longer present Possible ischemia no longer present T-wave abnormality still present Other ischemic changes, not STEMI Preliminary EKG Interpretation by Osiel Leyva DO NG JOB SETTER ECG 12 lead Result Date: 05/22/[address] Test Date: 2025-05-22 Pat Name: JESSICA TENA Department: 41 Room: 303A Gender: Female Air Tucker: Dz : 1965 Requested By: ENEDINA CENTENO Order Number: [id number] Reading MD: Measurements Intervals [place] Rate: 94 P: 49 DE: 137 QRS: -21 QRSD: 106 T: 70 QT: 383 QTc: 480 Interpretive Statements SINUS RHYTHM WITH OCCASIONAL VENTRICULAR PREMATURE COMPLEXES POSSIBLE LEFT ATRIAL ENLARGEMENT [-0.1mV P-WAVE IN V1/V2] BORDERLINE LEFT AXIS DEVIATION [QRS AXIS < -20] MODERATE T-WAVE ABNORMALITY, CONSIDER ANTEROLATERAL ISCHEMIA [-0.1+ mV T- WAVE IN V3-V6] Compared to ECG 05/22/2025 12:40:10 Ventricular premature complex(es) now present Possible ischemia now present Sinus tachycardia no longer present T-wave abnormality still present Other ischemic changes, not STEMI Preliminary EKG Interpretation by DO John CTA CHEST PE PROTOCOL Result Date: 05/22/2025 [facility] [address] [place], [place] [address] EXAMINATION: CTA CHEST WITH CONTRAST EXAM DATE/TIME: 05/22/2025 1:52 PM REASON FOR EXAM: SOB, PE R/O COMPARISON: None TECHNIQUE: Computed tomography angiography was performed of the chest after administration of intravenous contrast, according to routine protocol . 80 mL of Isovue 370 contrast was administered intravenously and uneventfully. Subsequent coronal and sagittal reformatted sequences are created for evaluation. In addition MIP imaging of the thoracic arterial vasculature is created for review. A dose lowering technique was used for this procedure, which may include, but is not limited to, dose reduction technique, automated exposure control, the use of iterative reconstruction, and ALARA (As Low As Reasonably Achievable) / Image Gently techniques. FINDINGS: VASCULAR FINDINGS: No evidence of filling defect in the pulmonary arteries is noted to suggest pulmonary embolism. No definite or obvious evidence of aortic aneurysm is seen. Phase of enhancement limits ml luation for aortic dissection or other subtle abnormality.. Cardiomegaly is present. NONVASCULAR FINDINGS: Lungs and pleura: Bilateral pleural effusions are seen greater on the right side where it ismild to moderate. Focal groundglass opacities such as in the left lung on image 44 is seen measuring 8 mm. Additional scattered areas of groundglass opacity are noted in the left lung such as on image 56 and other areas. Similar findings in the right lung are seen scattered. Mediastinum and saad: Mediastinal lymphadenopathy is seen. 1.6 cm subcarinal lymph node is seen. Multiple lymph nodes in the periaortic region are seen which some are enlarged such as on image 48 measuring 1.2 cm. Axillae:No enlarged axillary lymphadenopathy. Superficial tissues: Unremarkable Visualized Upper abdominal structures:Perinephric stranding about the left kidney is seen. The right kidney is minimally visualized. Some pericholecystic fluid or inflammatory changes are possible. This also is incompletely visualized. Minimal stranding about the pancreas is not excluded. Subtle ascites is possible. Bone Windows:Diffuse degenerative changes of the thoracic spine. Inferior cervical and supraclavicular region: The thyroid gland is unremarkable. =====IMPRESSION:===== No evidence of pulmonary embolism is seen. Cardiomegaly present. Bilateral scattered groundglass opacities and lungs. Small pleural effusions also seen. Pulmonary edema, atypical pneumonia or other etiologies are possible. Correlate clinically. Subtle inflammatory changes in the upper abdomen. Left perinephric stranding suspected. Other subtle inflammatory changes about the gallbladder pancreas are possible. Consider additional imaging if clinically indicated. The these areas are incompletely visualized. Ordered By: OSIEL LEYVA Interpreted By: Emile Merlos MD, 05/22/2025 2:52 PM XR CHEST PA+LAT Result Date: 05/22/[address] [address] EXAMINATION: PA AND LATERAL CHEST Exam date/time: 05/22/2025 11:49 AM Reason For Exam: dyspnea Comparison: 04/08/2023 Technique: PA and lateral views. Findings: There is mild cardiomegaly. Mild central pulmonary vascular congestion. There is minimal patchy parenchymal opacity in bothlung bases. Early/developing pneumonia could not be excluded. Mid and upper lung mandel are clear. No significant pleural effusion. No hyper inflation. =====IMPRESSION:===== 1. Cardiomegaly with mild central pulmonary vascular congestion and interstitial edema. 2. Minimal patchy parenchymal opacity in both lung bases. No pleural effusion. Ordered By: AMINTA OSEI Interpreted By: Luiz Reeder MD, 05/22/2025 12:38 PM LUIS SCHWARTZ [1] Past Medical History: Diagnosis Date Anxiety disorder, unspecified GERD (gastroesophageal reflux disease) Hypertension Mixed hyperlipidemia [2] Past Surgical History: Procedure Laterality Date NONE [3] Social History Tobacco Use Smoking status: Every Day Current packs/day: 1.50 Types: Cigarettes Smokeless tobacco: Never Vaping Use Vaping status: Never Used Substance Use Topics Alcohol use: Never Drug use: Never [4] Family History Family history unknown: Yes NG JOB SETTER documented in this encounter Plan of Treatment Upcoming Encounters Date Type Department Care Team (Late st Contact Info) Description 06/26/2025 10:45 AM HONING JOB SETTER Appointment [facility] [address] [place] [address] Russell Delgado MD Three [facility]. [address] [address] 07/02/2025 9:30 AM HONING JOB SETTER Appointment [facility] [address] [place] [address] Russell Delgado MD Three [facility]. [address] [address] 07/04/2025 9:30 AM HONING JOB SETTER Appointment [facility] [address] [place] [address] Russell Delgado MD Three [facility]. [address] [address] 07/05/2025 9:30 AM HONING JOB SETTER Appointment [facility] [address] [place] [address] Russell Delgado MD Three [address] [address] 07/09/2025 9:30 AM HONING JOB SETTER Appointment [facility] [address] [place] [address] Russell Delgado MD Three [facility]. [address] [address] 07/11/2025 9:30 AM HONING JOB SETTER Appointment [facility] [address] [place] [address] Russell Delgado MD Three [address] [address] 07/12/2025 9:30 AM HONING JOB SETTER Appointment [facility] [address] [place] [address] Russell Delgado MD Three [facility]. [address] [address] 07/16/2025 9:30 AM HONING JOB SETTER Appointment [facility] [address] [place] [address] Russell Delgado MD Three [facility] [address] [address] 07/18/2025 9:30 AM HONING JOB SETTER Appointment [facility] [address] [place] [address] Russell Delgado MD Three [facility]. [address] [address] 07/19/2025 9:30 AM HONING JOB SETTER Appointment [facility] [address] [place] [address] Russell Delgado MD Three [facility]. [address] [address] 07/23/2025 9:30 AM HONING JOB SETTER Appointment [facility] [address] [place] [address] Russell Delgado MD Three [facility]. [address] [address] 07/25/2025 9:30 AM HONING JOB SETTER Appointment [facility] [address] [place] [address] Russell Delgado MD Three [facility]. [address] [address] 07/26/2025 9:30 AM HONING JOB SETTER Appointment [facility] [address] [place] [address] Russell Delgado MD Three [facility]. [address] [address] 07/31/2025 10:00 AM HONING JOB SETTER Appointment [facility] Non [place] [address] Russell Delgado MD Three [facility]. [address] [address] Scheduled Orders Name Type Priority Associated Diagnoses Orde r Schedule COMPREHENSIVE METABOLIC PANEL Lab Routine Nonischemic cardiomyopathy ([facility]) Expected: 06/19/2025, Expires: 06/19/2026 CBC, AUTO, NO DIFF Lab Routine Nonischemic cardiomyopathy ([facility]) Expected: 06/19/2025, Expires: 06/19/2026 MAGNESIUM Lab Routine Nonischemic cardiomyopathy ([facility]) Expected: 06/19/2025, Expires: 06/19/2026 documented as of this encounter Visit Diagnoses Diagnosis Nonischemic cardiomyopathy ([facility])- Primary Other primary cardiomyopathies Primary hypertension Unspecified essential hypertension Syncope, unspecified syncope type documented in this encounter Care Teams Beef Killer Relationship Specialty Start Date End Date Berry Puga MD [address] [place] [address] PCP - General FAMILY PRACTICE 05/23/25 documented as of this encounter
--- OUTSIDE RECORDS SUMMARY | 2025-06-20 08:22 | XMS_ITS | Encounter Summary ---
Author Organization [facility] Address [address] [place] [address] Care Team Providers Care Customer Engineer Name Role Phone Berry Puga MD Primary Care Provider [phone] Encounter Details Date Type Department Care Team (Latest Contact Info) Description 06/19/2025 Travel Social History Tobacco Use Types Packs/Day Years [...] week 04/08/2023 How often do you attend adventist or pentecostalism serv ices? Never 04/08/2023 Do you belong to any clubs o r organizations such as adventist groups, unions, fraternal or athletic groups, or [...] Recorded Patient Health Questionnaire-2 Score 0 04/08/2023 [facility] Questionnaire Answer Date Recorded [...] place to sleep or slept in a skilled nursing (including now)? No 04/08/2023 Humiliation, Afraid, Rape, [...] often do you attend chur ch or pentecostalism services? Never 05/22/2025 Do you belong to any clubs o r organizations such as adventist groups, unions, fraternal or athletic groups, or [...] care, and heating? Not very hard 05/22/2025 [facility] [place] [facility] Occupat ional Health - Occupational Stress [...] from your doctor or pharmacy? Never 05/22/2025 [employer] Answer Date Recorded In the past 12 months has th e Hum, gas, oil, or water [employer] threatened to shut off services in your home? No 05/22/2025 Comments No Sex and Gender Information Value Date Recorded Sex Assigned at Female 05/22/2025 7:57 PM PIPE ORGAN MECHANIC APPRENTICE Legal Sex Female 5:43 PM CDT Gender Identity Female 05/22/2025 7:57 PM PIPE ORGAN MECHANIC APPRENTICE Sexual Orientation Not on file documented as of this encounter Functional Status * Are you deaf or do you have serious difficulty hearing Answer Date of Assessment Author Status Yes 05/22/2025 7:15 PM Darin Boss R N Active * Are you blind or do you have serious difficulty seeing, even when wearing glasses? Answer Date of Assessment Author Status No 05/22/2025 7:15 PM Darin Boss R N Active * Do you have serious difficulty walking or climbing stairs? Answer Date of Assessment Author Status No 05/22/2025 7:15 PM Darin Boss R N Active * Do you have difficulty dressing or bathing? Answer Date of Assessment Author Status No 05/22/2025 7:15 PM Darin Boss R N Active * Because of a physical, mental, or emotional condition, do you have difficulty doing errands alone such as visiting a doctor's office or shopping? Answer Date of Assessment Author Status No 05/22/2025 7:15 PM Darin Boss R N Active documented as of this encounter Mental Status * Because of a physical, mental, or emotional condition, do you have serious difficulty concentrating, remembering, or making decisions? Answer Entry Date Author Status No 05/22/2025 7:15 PM Darin Boss R N Active documented in this encounter Plan of Treatment Upcoming Encounters Date Type Department Care Team (Late st Contact Info) Description 06/26/2025 10:45 AM PIPE ORGAN MECHANIC APPRENTICE Appointment [facility] [address] [place] [address] Fer Hays MD Three [facility]. [facility] [address] [place] [address] 07/02/2025 9:30 AM PIPE ORGAN MECHANIC APPRENTICE Appointment [facility] [address] [place] [address] Fer Hays MD Three [facility]. [facility] [address] [place] [address] 07/04/2025 9:30 AM PIPE ORGAN MECHANIC APPRENTICE Appointment [facility] [address] [place] [address] Fer Hays MD Three [facility] [address] [place] [address] 07/05/2025 9:30 AM PIPE ORGAN MECHANIC APPRENTICE Appointment [facility] [address] [place] [address] Fer Hays MD Three [facility]. [address] [address] 07/09/2025 9:30 AM PIPE ORGAN MECHANIC APPRENTICE Appointment [facility] [address] [place] [address] Fer Hays MD [address] [facility] [address] [address] 07/11/2025 9:30 AM PIPE ORGAN MECHANIC APPRENTICE Appointment [facility] [address] [place] [address] Fer Hays MD Three [facility]. [address] [address] 07/12/2025 9:30 AM PIPE ORGAN MECHANIC APPRENTICE Appointment [facility] [address] [place] [address] Fer Hays MD Three [facility]. [address] [address] 07/16/2025 9:30 AM PIPE ORGAN MECHANIC APPRENTICE Appointment [facility] [address] [place] [address] Fer Hays MD Three [facility]. [address] [address] 07/18/2025 9:30 AM PIPE ORGAN MECHANIC APPRENTICE Appointment [facility] [address] [place] [address] Fer Hays MD Three [facility]. [address] [address] 07/19/2025 9:30 AM PIPE ORGAN MECHANIC APPRENTICE Appointment [facility] [address] [place] [address] Fer Hays MD Three [facility]. [address] [address] 07/23/2025 9:30 AM PIPE ORGAN MECHANIC APPRENTICE Appointment [facility] [address] [place] [address] Fer Hays MD Three [facility]. [address] [address] 07/25/2025 9:30 AM PIPE ORGAN MECHANIC APPRENTICE Appointment [facility] [address] [place] [address] Fer Hays MD Three [facility]. [address] [address] 07/26/2025 9:30 AM PIPE ORGAN MECHANIC APPRENTICE Appointment [facility] [address] [place] [address] Fer Hays MD Three [facility]. [address] [address] 07/31/2025 10:00 AM PIPE ORGAN MECHANIC APPRENTICE Appointment [facility] Non [place]vasive [place] [address] Fer Hays MD Three [facility]. [address] [address] documented as of this encounter Visit Diagnoses Not on filedocumented in this encounter Care Teams Customer Engineer Relationship Specialty Start Date End Date Berry Puga MD [address] [place] [id number] PCP - General FAMILY PRACTICE 05/23/25 documented as of this encounter
--- OUTSIDE RECORDS SUMMARY | 2025-06-20 08:22 | XMS_ITS | Encounter Summary ---
Author Organization [facility] Address [address] [place] [id number] Care Team Providers Care Cloth Bleaching Range Tender Name Role Phone Berry Puga MD Primary Care Provider [phone] Encounter Details Date Type Department Care Team (Late st Contact Info) Description 06/01/2025 Results [facility]-Up [facility] [address] [place], [place] [id number] Yennifer Lopez FNP [address] [facility] [address] [place], [place] [id number] XA RHC+C POSS Social History Tobacco Use Types Packs/Day Years [...] week 04/08/2023 How often do you attend adventism or denominational serv ices? Never 04/08/2023 Do you belong to any clubs o r organizations such as adventism groups, unions, fraternal or athletic groups, or [...] Recorded Patient Health Questionnaire-2 Score 0 04/08/2023 [facility] - Occupational Stress Questionnaire Answer Date [...] place to sleep or slept in a senior living (including now)? No 04/08/2023 Humiliation, Afraid, Rape, [...] often do you attend chur ch or denominational services? Never 05/22/2025 Do you belong to any clubs o r organizations such as adventism groups, unions, fraternal or athletic groups, or [...] care, and heating? Not very hard 05/22/2025 [facility] - Occupational Stress [...] from your doctor or pharmacy? Never 05/22/2025 [facility] Utilities Answer Date Recorded In the past 12 months has th e electric, gas, oil, or water company threatened to shut off services in your home? No 05/22/2025 Comments No Sex and Gender Information Value Date Recorded Sex Assigned at Female 05/22/2025 7:57 PM SYSTEMS TEST TECHNICIAN Legal Sex Female 5:43 PM CDT Gender Identity Female 05/22/2025 7:57 PM SYSTEMS TEST TECHNICIAN Sexual Orientation Not on file documented as of this encounter Functional Status * Are you deaf or do you have serious difficulty hearing Answer Date of Assessment Author Status Yes 05/22/2025 7:15 PM SYSTEMS TEST TECHNICIAN Darin Powell R N Active * Are you blind or do you have serious difficulty seeing, even when wearing glasses? Answer Date of Assessment Author Status No 05/22/2025 7:15 PM SYSTEMS TEST TECHNICIAN Darin Powell R N Active * Do you have serious difficulty walking or climbing stairs? Answer Date of Assessment Author Status No 05/22/2025 7:15 PM SYSTEMS TEST TECHNICIAN Darin Powell R N Active * Do you have difficulty dressing or bathing? Answer Date of Assessment Author Status No 05/22/2025 7:15 PM SYSTEMS TEST TECHNICIAN Darin Powell R N Active * Because of a physical, mental, or emotional condition, do you have difficulty doing errands alone such as visiting a doctor's office or shopping? Answer Date of Assessment Author Status No 05/22/2025 7:15 PM SYSTEMS TEST TECHNICIAN Darin Powell R N Active documented as of this encounter Mental Status * Because of a physical, mental, or emotional condition, do you have serious difficulty concentrating, remembering, or making decisions? Answer Entry Date Author Status No 05/22/2025 7:15 PM SYSTEMS TEST TECHNICIAN Darin Powell R N Active documented in this encounter Plan of Treatment Upcoming Encounters Date Type Department Care Team (Late st Contact Info) Description 06/26/2025 10:45 AM SYSTEMS TEST TECHNICIAN Appointment [facility] [address] [place] [address] Fer Hays MD Three [facility]. [address] [id number] 07/02/2025 9:30 AM SYSTEMS TEST TECHNICIAN Appointment [facility] [address] [place] [address] Fer Hays MD Three [facility]. [address] [address] 07/04/2025 9:30 AM SYSTEMS TEST TECHNICIAN Appointment [facility] [address] [place] [address] Fer Hays MD Three [facility]. [address] [address] 07/05/2025 9:30 AM SYSTEMS TEST TECHNICIAN Appointment [facility] [address] [place] [address] Fer Hays MD Three [facility]. [address] [address] 07/09/2025 9:30 AM SYSTEMS TEST TECHNICIAN Appointment [facility] [address] [place] [address] Fer Hays MD Three [address] [address] 07/11/2025 9:30 AM SYSTEMS TEST TECHNICIAN Appointment [facility] [address] [place] [address] [address] [facility]. [address] [address] 07/12/2025 9:30 AM SYSTEMS TEST TECHNICIAN Appointment [facility] [address] [place] [address] Fer [address] [facility]. [address] [address] 07/16/2025 9:30 AM SYSTEMS TEST TECHNICIAN Appointment [facility] [address] [place] [address] [facility] [address] [address] 07/18/2025 9:30 AM SYSTEMS TEST TECHNICIAN Appointment [facility] [address] [place] [address] Fer Hays MD Three [facility]. [address] [address] 07/19/2025 9:30 AM SYSTEMS TEST TECHNICIAN Appointment [facility] [address] [place] [address] Fer Hays MD Three [facility]. [address] [address] 07/23/2025 9:30 AM SYSTEMS TEST TECHNICIAN Appointment [facility] [address] [place] [address] Fer Hays MD Three [facility]. [address] [address] 07/25/2025 9:30 AM SYSTEMS TEST TECHNICIAN Appointment [facility] [address] [place] [address] Fer Hays MD Three [facility]. [address] [address] 07/26/2025 9:30 AM SYSTEMS TEST TECHNICIAN Appointment [facility] [address] [place] [address] Fer Hays MD Three [facility]. [address] [address] 07/31/2025 10:00 AM SYSTEMS TEST TECHNICIAN Appointment [facility] [place] [address] Fer Hays MD Three [facility]. [facility] [address] [place] [address] documented as of this encounter Visit Diagnoses Not on filedocumented in this encounter Care Teams Cloth Bleaching Range Tender Relationship Specialty Start Date End Date Berry Puga MD [address] [place] [address] PCP - General FAMILY PRACTICE 05/23/25 documented as of this encounter
--- OUTSIDE RECORDS SUMMARY | 2025-06-20 08:23 | XMS_ITS | Clinical Summary ---
Author Organization [facility] Address [facility] [place] [address] Care Team Providers Care Convex Grinder Name Role Phone Berry Puga MD Primary Care Provider [phone] Allergies No known active allergies Medications HYDROcodone-ac etaminophen (NORCO) 7.5-325 MG tablet Take 0.5-1 tablets [...] MEDICATION INSTEAD OF JUST STOPPING ABRUPTLY. Active busPIRone (BUSPAR) 7.5 MG tablet Take 1 tablet (7.5 mg total) by mouth 2 (two) times daily. 5 Active vitamin D3 (CHOLECALCIFER OL) 1.25 mg capsule Take 1 capsule (1.25 mg total) by mouth once a week. 5 Active doxepin (SINEQUAN) 25 MG capsule Take 1 capsule (25 mg total) by mouth nightly at bedtime. 5 Active albuterol sulfate HFA 108 (90 Base) MCG/ACT inhaler Inhale 2 puffs into the lungs every 6 (six) hours as needed for Wheezing or Shortness of breath. 5 Active omeprazole (PRILOSEC) 40 MG capsule Take 1 capsule (40 mg total) by mouth daily. 5 Active empagliflozin (JARDIANCE) 10 MG tablet Take 1 tablet (10 mg total) by mouth daily. 30 tablet 5 Active aspirin EC (ECOTRIN) 81 MG tablet Take 1 tablet (81 mg total) by mouth daily. 30 tablet 5 Active furosemide (LASIX) 40 MG tablet Take 1 tablet (40 mg total) by mouth daily. 30 tablet 5 Active carvedilol (COREG) 12.5 MG tablet Take 1 tablet (12.5 mg total) by mouth 2 (two) times daily. 60 tablet 3 5 Active atorvastatin (LIPITOR) 40 MG tablet Take 1 tablet (40 mg total) by mouth nightly at bedtime. 30 tablet 3 5 Active sacubitril-sadie sartan (ENTRESTO) 24-26 MG tablet Take 1 tablet by mouth 2 (two) times daily. Wait to start this medication until you have been off your lisinopril for three days. 60 tablet 2 5 Active spironolactone (ALDACTONE) 25 MG tablet Take 1 tablet (25 mg total) by mouth daily. DOSE INCREASED 06/19/25 90 tablet 1 5 Active omeprazole (PRILOSEC) 20 MG capsule Take 1 capsule (20 mg total) by mouth daily. 3 05/22/20 25 Discontin ued(Error ) atorvastatin (LIPITOR) 20 MG tablet Take 1 tablet (20 mg total) by mouth nightly at bedtime. 3 05/29/20 25 Discontin ued(Stop Taking at Discharge ) lisinopril (PRINIVIL) 10 MG tablet Take 1 tablet (10 mg total) by mouth daily. 30 tablet 3 05/22/20 25 Discontin ued(Error ) lisinopril (PRINIVIL) 30 MG tablet Take 1 tablet (30 mg total) by mouth daily. 5 05/29/20 25 Discontin ued(Stop Taking at Discharge ) amLODIPine (NORVASC) 2.5 MG tablet Take 1 tablet (2.5 mg total) by mouth daily. 5 05/29/20 25 Discontin ued(Stop Taking at Discharge ) ibuprofen (MOTRIN) 800 MG tablet Take 1 tablet (800 mg total) by mouth daily as needed for Pain or Fever. 5 05/29/20 25 Discontin ued(Stop Taking at Discharge ) lisinopril (PRINIVIL) 40 MG tablet Take 1 tablet (40 mg total) by mouth daily. 30 tablet 5 06/19/20 25 Discontin ued(Alter beth therapy) carvedilol (COREG) 3.125 MG tablet Take 1 tablet (3.125 mg total) by mouth 2 (two) times daily. 60 tablet 5 05/29/20 25 Discontin ued(Stop Taking at Discharge ) hydrALAZINE (APRESOLINE) 25 MG tablet Take 1 tablet (25 mg total) by mouth every 8 (eight) hours. 90 tablet 5 05/29/20 25 Discontin ued(Stop Taking at Discharge ) isosorbide dinitrate (ISORDIL) 10 MG tablet Take 1 tablet (10 mg total) by mouth 2 (two) times daily. 60 tablet 5 05/29/20 25 Discontin ued(Stop Taking at Discharge ) spironolactone (ALDACTONE) 25 MG tablet Take 0.5 tablets (12.5 mg total) by mouth daily. 15 tablet 5 06/19/20 25 Discontin ued(Reord er) Active Problems Problem Noted Date Diagnosed Date Nonischemic cardiomyopathy 06/19/2025 Fluid overload 05/22/2025 Syncope 04/08/2023 Hypertensive disorder 09/02/2017 Overview (06/18/2025): Essential (primary) hypertension;Recorded Elsewhere: No Location: [facility] Source: EHR Chronic: N Practice ID: [id number] Billable Time: 08:30:00 AM Encounters Date Type Department Care Team Description 06/19/2025 10:45 AM MORNING SHOW HOST Office Visit [facility] [address] [address] Isis Grewal NP-C CHF (CATH F/U) 06/19/2025 Travel 06/05/2025 Telephone [facility] [place] [address] Renata Phillips RN Follow Up Call (CHF callback) 06/01/2025 Results [facility]-Up 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 XA RHC+LHC POSS 05/31/2025 Telephone [facility] [address] Russell Delgado MD Appointment Request 05/30/2025 Orders Only [facility] [place] [address] Russell Delgado MD 05/29/2025 Orders Only [facility] [place] [address] Russell Delgado MD 05/22/2025 12:22 PM MORNING SHOW HOST - 05/29/2025 1:22 PM MORNING SHOW HOST Hospital Encounter [facility] [place] [address] Osiel Leyva DO Jumean, Khaled, MD Jerkovich, Adria, MD Usman, Ahsan, MD Tran, Isaac T, MD Breathing Problem; Generalized Body Aches; Hypertension Discharge Disposition: Home or Self Care (Routine Discharge) 05/22/2025 Travel from Last 3 Months Family History Relation Status Comments Father Alive Mother Alive Social History Tobacco Use Types Packs/Day Years Used Date Smoking Tobacco: Every Day Cigarettes Smokeless Tobacco: Never Tobacco Cessation:Ready to Q uit: Not Asked; Counseling Given: Not Answered Alcohol Use Standard Drinks/Week Comments Never 0 [...] week 04/08/2023 How often do you attend quaker or mormon serv ices? Never 04/08/2023 Do you belong to any clubs o r organizations such as quaker groups, unions, fraternal or athletic groups, or [...] Recorded Patient Health Questionnaire-2 Score 0 04/08/2023 [facility] [place] [facility]at [facility] - Occupational Stress [...] often do you attend chur ch or mormon services? Never 05/22/2025 Do you belong to any clubs o r organizations such as quaker groups, unions, fraternal or athletic groups, or [...] care, and heating? Not very hard 05/22/2025 [facility] [place] [facility]at [facility] - Occupational Stress [...] from your doctor or pharmacy? Never 05/22/2025 [facility] Utilities Answer Date Recorded In the past 12 months has e electric, gas, oil, or water company threatened to shut off services in your home? No 05/22/2025 Comments No Sex and Gender Information Value Date Recorded Sex Assigned at Female 05/22/2025 7:57 PM MORNING SHOW HOST Legal Sex Female 5:43 PM CDT Gender Identity Female 05/22/2025 7:57 PM MORNING SHOW HOST Sexual Orientation Not on file Last Filed Vital Signs Vital Sign Reading Time Taken Comments Blood Pressure 154/100 06/19/2025 10:53 AM MORNING SHOW HOST Pulse 55 06/19/2025 10:53 AM MORNING SHOW HOST Temperature 36.7 C (98.1 F) 05/29/2025 11:27 AM MORNING SHOW HOST Respiratory Rate 16 05/29/2025 11:2 7 AM MORNING SHOW HOST Oxygen Saturation 98% 06/19/2025 10: 53 AM MORNING SHOW HOST Inhaled Oxygen Concentration - - Weight 71.1 kg (156 lb 12.8 oz) 025 10:53 AM MORNING SHOW HOST Height 162.6 cm (5' 4) 06/19/2025 10:5 3 AM MORNING SHOW HOST Body Mass Index 26.91 06/19/2025 10:53 AM MORNING SHOW HOST Plan of Treatment Upcoming Encounters Date Type Department Care Team (Late st Contact Info) Description 06/26/2025 10:45 AM MORNING SHOW HOST Appointment [facility] Cardiopulmonary Rehab [address] [place] [address] Russell Delgado MD Three [facility]. [facility] [address] [place] [address] 07/02/2025 9:30 AM MORNING SHOW HOST Appointment [facility] Cardiop[facility] [address] [place] [address] Russell Delgado MD Three [facility] [address] [place] [address] 07/04/2025 9:30 AM MORNING SHOW HOST Appointment [facility] [address] [place] [address] Russell Delgado MD Three [facility]. [address] [address] 07/05/2025 9:30 AM MORNING SHOW HOST Appointment [facility] [address] [place] [address] Russell Delgado MD Three [facility] [address] [address] 07/09/2025 9:30 AM MORNING SHOW HOST Appointment [facility] [address] [place] [address] Russell Delgado MD Three [facility]. [address] [address] 07/11/2025 9:30 AM MORNING SHOW HOST Appointment [facility] [address] [place] [address] Russell Delgado MD Three [facility]. [address] [address] 07/12/2025 9:30 AM MORNING SHOW HOST Appointment [facility] [address] [place] [address] Russell Delgado MD Three [facility]. [address] [address] 07/16/2025 9:30 AM MORNING SHOW HOST Appointment [facility] [address] [place] [address] Russell Delgado MD Three [facility]. [address] [address] 07/18/2025 9:30 AM MORNING SHOW HOST Appointment [facility] [address] [place] [address] Russell Delgado MD Three [facility]. [address] [address] 07/19/2025 9:30 AM MORNING SHOW HOST Appointment [facility] [address] [place] [address] Russell Delgado MD Three [facility]. [address] [address] 07/23/2025 9:30 AM MORNING SHOW HOST Appointment [facility] [address] [place] [address] Russell Delgado MD Three [facility]. [address] [address] 07/25/2025 9:30 AM MORNING SHOW HOST Appointment [facility] [address] [place] [address] Russell Delgado MD Three [facility]. [address] [address] 07/26/2025 9:30 AM MORNING SHOW HOST Appointment [facility] [address] [place] [address] Russell Delgado MD Three [facility]. [address] [address] 07/31/2025 10:00 AM MORNING SHOW HOST Appointment [facility] Non Invasive [place] [address] Russell Delgado MD Three [facility]. [facility] [address] [place] [address] Health Maintenance Due Date Last Done Comments Cervical Cancer Screening Pa p Smear (Age 30 to 64) Every 3 Years 1966 Colorectal Cancer Screening Colonoscopy (10 Years) 1966 Annual Physical 1969 DTaP, Tdap and Td Vaccines ( 1 - Tdap) 1985 Hepatitis B Vaccines (1 of 3 - 19+ 3-dose series) 1985 Pneumococcal Vaccine: 50+ Years (1 of 2 - PCV) 1985 Cervical Cancer Screening Pa p with HPV Testing (Age 30 to 64) Every 5 Years 1996 Cervical Cancer Screening wi th HPV 1996 Mammogram Screening 2006 Zoster Vaccines (1 of 2) 2016 COVID-19 Vaccine (2024-2 6 season) 2025 05/20/2021, 09/16/2020, 08/26/2020 Influenza Adult (#1) 2025 Hepatitis C Completed 05/23/2025 Hepatitis A Vaccines Aged Out No long er eligible based on patient's age to complete this topic Meningococcal B Vaccine Aged Out No l onger eligible based on patient's age to complete this topic Meningococcal Vaccine Aged Out No dante estrella eligible based on patient's age to complete this topic RSV Immunizations Under 20 Months Aged Out No longer eligible b ased on patient's age to complete this topic Procedures Procedure Name Priority Date/Time Associated Diagnosis Comments USV ABD PEL OR RETRO DUPLEX COMP Today 05/29/2025 7:29 AM MORNING SHOW HOST COMPREHENSIVE METABOLIC PANEL Routine 05/29/2025 6:04 AM MORNING SHOW HOST MAGNESIUM Routine 05/29/2025 6:04 AM MORNING SHOW HOST HC CBC AUTO W/AUTO DIFF Routine 05/29/20 6:04 AM MORNING SHOW HOST PROCALCITONIN (PCT) Routine 05/28/2025 5 :51 AM MORNING SHOW HOST COMPREHENSIVE METABOLIC PANEL Routine 05/28/2025 5:51 AM MORNING SHOW HOST HC CBC AUTO W/AUTO DIFF Routine 05/28/20 5:51 AM MORNING SHOW HOST HEMOGLOBIN, GLYCOSYLATED Routine 05/27/2025 9:12 AM MORNING SHOW HOST MAGNESIUM Routine 05/27/2025 9:12 AM MORNING SHOW HOST BASIC METABOLIC PANEL Routine 05/27/2025 9:12 AM MORNING SHOW HOST HC CBC AUTO W/AUTO DIFF Routine 05/27/20 9:12 AM MORNING SHOW HOST XR CHEST PA+LAT Today 05/26/2025 8:35 AM MORNING SHOW HOST HEMOGLOBIN, GLYCOSYLATED Routine 05/26/2025 7:52 AM MORNING SHOW HOST MAGNESIUM Routine 05/26/2025 7:52 AM MORNING SHOW HOST HC CBC AUTO W/AUTO DIFF Routine 05/26/20 7:52 AM MORNING SHOW HOST COMPREHENSIVE METABOLIC PANEL Routine 05/26/2025 7:52 AM MORNING SHOW HOST PRO-BRAIN NATRIURETIC PEPTIDE Routine 05/26/2025 7:52 AM MORNING SHOW HOST THYROID STIM HORMONE TSH Routine 05/26/2025 7:52 AM MORNING SHOW HOST ECG 12-LEAD Routine 05/26/2025 6:27 AM MORNING SHOW HOST LIPID PANEL Routine 05/25/2025 3:43 PM MORNING SHOW HOST ALDOSTERONE/RENIN ACTIVITY Routine 05/25/2025 3:43 PM MORNING SHOW HOST URINALYSIS Routine 05/25/2025 2:40 PM MORNING SHOW HOST XA RHC+LHC POSS Today 05/25/2025 9:59 AM MORNING SHOW HOST CG8 PLUS-ISTAT Routine 05/25/2025 9:11 AM MORNING SHOW HOST CG8 PLUS-ISTAT Routine 05/25/2025 9:03 AM MORNING SHOW HOST HC CBC AUTO W/AUTO DIFF Routine 05/25/20 5:55 AM MORNING SHOW HOST COMPREHENSIVE METABOLIC PANEL Routine 05/25/2025 5:55 AM MORNING SHOW HOST HC CBC AUTO W/AUTO DIFF Routine 05/24/20 7:20 AM MORNING SHOW HOST BASIC METABOLIC PANEL Routine 05/24/2025 7:20 AM MORNING SHOW HOST GI PANEL PCR - STOOL Routine 05/23/2025 2:51 PM MORNING SHOW HOST US ABD LIMITED Today 05/23/2025 10:22 AM MORNING SHOW HOST USE ECHOCARDIOGRAM W CON Today 05/23/2025 8:46 AM MORNING SHOW HOST HEPATITIS PANEL,ACUTE Routine 05/23/2025 3:35 AM MORNING SHOW HOST PHOSPHORUS, INORGANIC PHOSPHATE Routine 05/23/2025 3:35 AM MORNING SHOW HOST COMPREHENSIVE METABOLIC PANEL Routine 05/23/2025 3:35 AM MORNING SHOW HOST HC CBC AUTO W/AUTO DIFF Routine 05/23/20 3:35 AM MORNING SHOW HOST CULTURE, BACTERIA, BLOOD Routine 05/22/2025 9:05 PM MORNING SHOW HOST CULTURE, BACTERIA, BLOOD Routine 05/22/2025 8:45 PM MORNING SHOW HOST LACTIC ACID W REFLEX (SEPSIS) Routine 05/22/2025 8:[address] ABD+PEL WO CON STAT 05/22/2025 7:4 6 PM MORNING SHOW HOST ECG 12-LEAD Routine 05/22/2025 5:19 PM MORNING SHOW HOST PHOSPHORUS, INORGANIC PHOSPHATE Routine 05/22/2025 5:18 PM MORNING SHOW HOST MAGNESIUM Routine 05/22/2025 5:18 PM MORNING SHOW HOST CK (CPK) Routine 05/22/2025 5:18 PM MORNING SHOW HOST TROPONIN, QUANT STAT 05/22/2025 5:18 PM MORNING SHOW HOST HC MYCOPLASMA AB-90 Routine 05/22/2025 5 :18 PM MORNING SHOW HOST PROCALCITONIN (PCT) Routine 05/22/2025 5 :18 PM MORNING SHOW HOST HEPATIC FUNCTION PANEL Routine 5:18 PM MORNING SHOW HOST LEGIONELLA AG URINE STAT 05/22/2025 4 :12 PM MORNING SHOW HOST STREP PNEUMO AG URINE STAT 05/22/2025 4:12 PM MORNING SHOW HOST URINE BACTERIA CULTURE STAT 4:12 PM MORNING SHOW HOST URINALYSIS, AUTO, COMPLETE STAT 05/22/2025 4:12 PM MORNING SHOW HOST LIPASE Routine 05/22/2025 3:36 PM MORNING SHOW HOST TROPONIN, QUANT STAT 05/22/2025 3:36 PM MORNING SHOW HOST BASIC METABOLIC PANEL KRYSTAL 05/22/2025 2:21 PM MORNING SHOW HOST CTA CHEST PE PROTOCOL STAT 05/22/2025 2:00 PM MORNING SHOW HOST D-DIMER, QUANTITATIVE STAT 05/22/2025 1:18 PM MORNING SHOW HOST ECG 12-LEAD Routine 05/22/2025 12:40 PM MORNING SHOW HOST PRO-BRAIN NATRIURETIC PEPTIDE Routine 05/22/2025 12:33 PM MORNING SHOW HOST TROPONIN, QUANT STAT 05/22/2025 12:33 PM MORNING SHOW HOST HC CBC AUTO W/AUTO DIFF STAT 05/22/20 12:33 PM MORNING SHOW HOST RESPIRATORY PCR PNL LIMITED STAT 05/22/2025 12:32 PM MORNING SHOW HOST XR CHEST PA+LAT STAT 05/22/2025 12:03 PM MORNING SHOW HOST from Last 3 Months Results * USV ABD PEL OR RETRO DUPLEX COMP (05/29/2025 7:29 AM MORNING SHOW HOST) Anatomical Region Laterality Modality NA Vascular Ultraso und 05/29/2025 6:55 AM MORNING SHOW HOST Narrative 05/29/2025 8:04 AM MORNING SHOW HOST RENAL-MESENTERIC DUPLEX IMAGING VASCULAR LAB Pat.Name: JESSICA TENA Kaela.ID: [id number] .Date: 05/29/2025 Refer.MD: MAGALY YIN Exam Time: [...] kidney length within normal range. Left renal artery no evident narrowing, normal velocity, with RAR 2.97 . RI .67, with kidney length within normal range. Renal veins are patent bilaterally. Aorta no evident narrowing, triphasic. CONCLUSION: Bilateral renal artery stenosis <60% with good kidney preservation bilaterally. ++++++++++++++++++++++++++++++++++++ MEASUREMENTS: ++++++++++++++++++++++++++++++++++++ AO-ILIAC Left Kidney Kidney Size 10 cm Right Kidney Kidney Size 9.94 cm RENAL ART [...] Signature> 05/29/2025 08:04 AM Lorene Castelan M.D. Procedure Note Lorene Castelan MD - 05/29/2025 RENAL-MESENTERIC DUPLEX IMAGING VASCULAR LAB Pat.Name: JESSICA TENA Kaela.ID: [id number] .Date: 05/29/2025 Refer.MD: MAGALY YIN Exam Time: 6:55:00 AM Study Type:SUZIE VS Renal Mesenteric Duplex TILA Height: 64 in Age: 7 1965,59Y Sex: F Sonogrphr: Linsey Christine RVT Pat. Stat.:Inpatient History / Clinical:HTN, PMH, [...] kidney length within normal range. Left renal artery no evident narrowing, normal velocity, with RAR 2.97 . RI .67, with kidney length within normal range. Renal veins are patent bilaterally. Aorta no evident narrowing, triphasic. CONCLUSION: Bilateral renal artery stenosis <60% with good kidney preservation bilaterally. ++++++++++++++++++++++++++++++++++++ MEASUREMENTS: ++++++++++++++++++++++++++++++++++++ AO-ILIAC Left Kidney Kidney Size 10 cm Right Kidney Kidney Size 9.94 cm RENAL ART [...] Signature> 05/29/2025 08:04 AM Lorene Castelan M.D. Magaly Yin [employer] [facility] Final Result * MAGNESIUM (05/29/2025 6:04 AM MORNING SHOW HOST) Only the most recent of4 resultswithin the time period is included. MAGNESIUM 2.4 1.8 - 2.4 MG/DL 05/29/2025 7:[address] [facility] BLOOD VENOUS BLOOD SPECIMEN / Unknown 05/29/2025 6:04 AM MORNING SHOW HOST Karan Santoro MD LABORATORY Final Result [facility] [address] [place] [address], [place] [phone] * (ABNORMAL) COMPREHENSIVE METABOLIC PANEL (05/29/2025 6:04 AM MORNING SHOW HOST) Only the most recent of5 resultswithin the time period is included. GLUCOSE 107(H) 70 - 99 MG/DL 05/29/2025 7:[address] [facility] BUN 26(H) 7 - 18 MG/DL 05/29/2025 7:[address] [facility] CREATININE S/P/B 0.98 0.55 - 1.02 MG/DL 05/29/2025 7:[address] [facility] SODIUM S/P/B 139 136 - 145 MMOL/L 05/29/2025 7:[address] [facility] POTASSIUM S/P/B 4.4 3.5 - 5.1 MMOL/L 05/29/2025 7:[address] [facility] CHLORIDE S/P/B 102 97 - 115 MMOL/L 05/29/2025 7:[address] [facility] CO2 32.1(H) 21 - 32 MMOL/L 05/29/2025 7:[address] [facility] CALCIUM S/P/B 9.9 8.5 - 10.1 MG/DL 05/29/2025 7:[address] [facility] BILIRUBIN TOTAL S/P/B 0.6 0.2 - 1.2 MG/DL 05/29/2025 7:[address] [facility] Comment: THIS ASSAY IS NOT RECOMMENDED FOR PATIENTS UNDERGOING TREATMENT WITH ELTROMBOPAG DUE TO THE POTENTIAL FOR FALSELY ELEVATED RESULTS. TOTAL PROTEIN S/P/B 7.0 6.4 - 8.2 G/DL 05/29/2025 7:[address] [facility] ALBUMIN S/P/B 3.4 3.4 - 5.0 G/DL 05/29/2025 7:[address] [facility] AST 30 15 - 37 U/L 05/29/2025 7:[address] [facility] ALT 68(H) 14 - 55 U/L 05/29/2025 7:[address] [facility] ALKALINE PHOSPHATASE S/P/B 154(H) 50 - 136 U/L 05/29/2025 7:[address] [facility] ANION GAP 4.9 2 - 10 MMOL/L 05/29/2025 7:[address] [facility] BUN CREATININE RATIO 26.7(H) 6 - 26 05/29/2025 7:[address] [facility] A/G RATIO 0.9(L) 1.0 - 2.0 RATIO 05/29/2025 7:[address] [facility] GFR ESTIMATE 67(L) >90 ML/MIN/1.7 3 M2 05/29/2025 7:[address] [facility] Comment: NOTE: eGFR is not calculated for patients <18 years of age or gender unknown. This is an estimated GFR calculation using the new CKD EPI creatinine equation without race and so does not require a correction factor for race. This estimated GFR should not be used for calculating drug doses. BLOOD VENOUS BLOOD SPECIMEN / Unknown 05/29/2025 6:04 AM MORNING SHOW HOST Karan Santoro MD LABORATORY Final Result [facility] [address] [place] [address], [place] [phone] * (ABNORMAL) CBC W/DIFF (05/29/2025 6:04 AM MORNING SHOW HOST) Only the most recent of8 resultswithin the time period is included. WBC 6.83 4.5 - 11.0 x10'3/uL 05/29/2025 6:49 AM MORNING SHOW HOST [facility] RBC 4.46 4.20 - 5.40 x10'6/uL 05/29/2025 6:[address] [facility] HGB 13.9 12.0 - 16.0 G/DL 05/29/2025 6:[address] [facility] HCT 43.5 38.0 - 48.0 % 05/29/2025 6:[address] [facility] MCV 97.5 81.0 - 99.0 FL 05/29/2025 6:[address] [facility] MCH 31.2(H) 27.0 - 31.0 PG 05/29/2025 6:[address] [facility] MCHC 32.0 32.0 - 36.0 G/DL 05/29/2025 6:[address] [facility] RDW 14.4 11.5 - 14.5 % 05/29/2025 6:[address] [facility] PLT 326 130 - 400 x10'3/uL 05/29/2025 6:[address] [facility] MPV 10.0 9.3 - 12.2 FL 05/29/2025 6:[address] [facility] DIFFERENTIAL TYPE AUTOMATED DIFFERENTIAL 05/29/2025 6:[address] [facility] NEUTROPHILS % 60.8 % 05/29/2025 6:[address] [facility] LYMPHOCYTES % 28.8 % 05/29/2025 6:[address] [facility] MONOCYTES % 8.3 % 05/29/2025 6:[address] [facility] EOSINOPHILS 1.3 % 05/29/2025 6:[address] [facility] BASOPHILS 0.7 % 05/29/2025 6:[address] [facility] IMMATURE GRANS % 0.1 % 05/29/20 6:[address] [facility] ABS. NEUTROPHILS 4.14 1.80 - 7.70 x10'3/uL 05/29/2025 6:[address] [facility] ABS. LYMPHOCYTES 1.97 1.00 - 4.80 x10'3/uL 05/29/2025 6:[address] [facility] ABS. MONOCYTES 0.57 0.24 - 0.86 x10'3/uL 05/29/2025 6:[address] [facility] ABS. EOSINOPHILS 0.09 0.04 - 0.36 x10'3/uL 05/29/2025 6:[address] [facility] ABS. BASOPHILS 0.05 0.01 - 0.08 x10'3/uL 05/29/2025 6:[address] [facility] ABS. IMMATURE GRANULOCYTES 0.01 0.00 - 0.49 x10'3/uL 05/29/2025 6:49 AM MORNING SHOW HOST [facility] BLOOD VENOUS BLOOD SPECIMEN / Unknown 05/29/2025 6:04 AM MORNING SHOW HOST us Karan Santoro MD LABORATORY Final Result Performing Organization Address City/[facility]/ZIP Co de Phone Number [facility] [address] [place] [phone], * PROCALCITONIN (PCT) (05/28/2025 5:51 AM MORNING SHOW HOST) Only the most recent of2 resultswithin the time period is included. PROCALCITONIN <0.05 0.00 - 0.49 NG/ML 05/28/2025 10:55 AM MORNING SHOW HOST [facility] BLOOD VENOUS BLOOD SPECIMEN / Unknown 05/28/2025 5:51 AM MORNING SHOW HOST Karan Santoro MD LABORATORY Final Result Performing Organization Address City/[facility] Co de Phone Number [facility] [address] [place] [phone], * (ABNORMAL) HEMOGLOBIN, GLYCOSYLATED (05/27/2025 9:12 AM MORNING SHOW HOST) Only the most recent of2 resultswithin the time period is included. HGB A1C 5.7(H) <5.7 % 05/27/2025 11:09 AM MORNING SHOW HOST [facility] Comment: ADA GUIDELINES 2010 5.7 TO 6.4% INCREASED RISK OF DIABETES > OR = 6.5% CONSISTENT WITH DIABETES ESTIMATED AVG GLUCOSE 117 mg/dL 05/27/2025 11:09 AM MORNING SHOW HOST [facility] BLOOD VENOUS BLOOD SPECIMEN / Unknown 05/27/2025 9:12 AM MORNING SHOW HOST us Kennedy Eastman MD LABORATORY Final Result [facility] [address] [place] [address], * (ABNORMAL) BASIC METABOLIC PANEL (05/27/2025 9:12 AM MORNING SHOW HOST) Only the most recent of3 resultswithin the time period is included. [facility] Signature GLUCOSE 141(H) 70 - 99 MG/DL 05/27/2025 9:[address] [facility] BUN 22(H) 7 - 18 MG/DL 05/27/2025 9:[address] [facility] CREATININE S/P/B 0.89 0.55 - 1.02 MG/DL 05/27/2025 9:[address] [facility] SODIUM S/P/B 140 136 - 145 MMOL/L 05/27/2025 9:[address] [facility] POTASSIUM S/P/B 4.6 3.5 - 5.1 MMOL/L 05/27/2025 9:[address] [facility] CHLORIDE S/P/B 108 97 - 115 MMOL/L 05/27/2025 9:[address] [facility] CO2 29.1 21 - 32 MMOL/L 05/27/2025 9:[address] [facility] CALCIUM S/P/B 8.8 8.5 - 10.1 MG/DL 05/27/2025 9:[address] [facility] [facility] ANION GAP 2.9 2 - 10 MMOL/L 05/27/2025 9:[address] [facility] BUN CREATININE RATIO 24.7 6 - 26 05/27/2025 9:[address] [facility] GFR ESTIMATE 75(L) >90 ML/MIN/1.7 3 M2 05/27/2025 9:49 AM MORNING SHOW HOST [facility] Comment: NOTE: eGFR is not calculated for patients <18 years of age or gender unknown. This is an estimated GFR calculation using the new CKD EPI creatinine equation without race and so does not require a correction factor for race. This estimated GFR should not be used for calculating drug doses. BLOOD VENOUS BLOOD SPECIMEN / Unknown 05/27/2025 9:12 AM MORNING SHOW HOST Kennedy Eastman MD LABORATORY Final Result [facility] [address] [place] [address], * XR CHEST PA+LAT (05/26/2025 8:35 AM MORNING SHOW HOST) Only the most recent of2 resultswithin the time period is included. Anatomical Region Laterality Modality Chest Radiographic Diana ging 05/26/2025 9:58 AM MORNING SHOW HOST Impressions 05/26/2025 10:01 AM MORNING SHOW HOST =====IMPRESSION:===== 1. No radiographic evidence of active disease the chest. Ordered By: RUSSELL DELGADO Interpreted By: Luiz Reeder MD, 05/26/2025 9:58 AM Narrative 05/26/2025 10:01 AM MORNING SHOW HOST [facility] [address] [place], [place] [address] EXAMINATION: PA AND LATERAL CHEST Exam date/time: 05/26/2025 8:30 AM Reason For Exam: sob Comparison: 05/22/2025 Technique: PA and lateral views. Findings: Borderline cardiomegaly. Pulmonary vasculature within normal limits. No pulmonary parenchymal consolidation. No pleural effusion. No hyperinflation. Procedure Note Luiz Reeder MD - 05/26/2025 [facility] [address] [place], [place] [address] EXAMINATION: PA AND LATERAL CHEST Exam date/time: 05/26/2025 8:30 AM Reason For Exam: sob Comparison: 05/22/2025 Technique: PA and lateral views. Findings: Borderline cardiomegaly. Pulmonary vasculature within normallimits. No pulmonary parenchymal consolidation. No pleural effusion. Nohyperinflation. =====IMPRESSION:===== 1. No radiographic evidence of active disease the chest. Ordered By: RUSSELL DELGADO Interpreted By: Luiz Reeder MD, 05/26/2025 9:58 AM Russell Delgado MD GENERAL IMAGING Final Result * THYROID STIM HORMONE TSH (05/26/2025 7:52 AM MORNING SHOW HOST) TSH 2.270 0.358 - 3.74 uIU/ML 05/26/2025 8:59 AM MORNING SHOW HOST [facility] Comment: HIGH DOSES OF BIOTIN MAY INTERFERE WITH THIS TEST RESULT. CORRELATION TO CLINICAL HISTORY AND PRESENTATION RECOMMENDED. BLOOD VENOUS BLOOD SPECIMEN / Unknown 05/26/2025 7:52 AM MORNING SHOW HOST Russell Delgado MD LABORATORY Final Result [facility] [address] [place] [address], [place] [phone] * (ABNORMAL) PRO-BRAIN NATRIURETIC PEPTIDE (05/26/2025 7:52 AM MORNING SHOW HOST) Only the most recent of2 resultswithin the time period is included. PRO-B TYPE NATRIURETIC PEPTIDE 888(H) <125 PG/ML 05/26/2025 8:59 AM MORNING SHOW HOST [facility] Comment: CUT POINTS ESTABLISHED BY [employer] ON NT PROBNP (ICON) STUDY (2006). AGE INDEPENDENT: <300 PG/ML HAS A 99% NEGATIVE PREDICTIVE VALUE FOR EXCLUDING ACUTE CHF <50 YEARS: >450 PG/ML IS CONSISTENT WITH ACUTE CHF 50-75 YEARS: >900 PG/ML IS CONSISTENT WITH ACUTE CHF >75 YEARS: >1800 PG/ML IS CONSISTENT WITH ACUTE CHF IN PATIENTS WITH RENAL INSUFFICIENCY (GFR <60), >1200 PG/ML YIELDS A DIAGNOSTIC SENSITIVITY AND SPECIFICITY OF 89% AND 72% FOR ACUTE CHF. BLOOD VENOUS BLOOD SPECIMEN / Unknown 05/26/2025 7:52 AM MORNING SHOW HOST us Russell Delgado MD LABORATORY Final Result [facility] [address] [place] [address], * ECG 12 lead (05/26/2025 6:27 AM MORNING SHOW HOST) Only the most recent of3 resultswithin the time period is included. 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1965 Requested By: RUSSELL DELGADO Order Number: [id number] Pramod MD: Haylee Bell Measurements Intervals [place] Rate: 78 P: 48 MI: 150 QRS: -34 QRSD: 104 T: 9 QT: 464 QTc: 529 Interpretive Statements SINUS RHYTHM MARKED LEFT AXIS DEVIATION [QRS AXIS < -30] MINIMAL VOLTAGE CRITERIA FOR LVH, CONSIDER NORMAL VARIANT [MEETS CRITERIA IN ONE OF: R(aVL), S(V1), R(V5), R(V5/V6)+S(V1)] MODERATE T-WAVE ABNORMALITY, CONSIDER ANTEROLATERAL ISCHEMIA [-0.1+ mV T WAVE IN V3-V6] Compared to ECG 05/22/2025 17:19:32 Ventricular premature complex(es) no longer present T-wave abnormality still present Possible ischemia still present ING SHOW HOST Procedure Note Haylee Bell MD - 05/26/[address] Test Date: 2025-05-26 Pat Name: JESSICA TENA Department: 40 Room: [id number] 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1965 Requested By: RUSSELL DELGADO Order Number: [id number] Reading MD: Haylee Bell Measurements Intervals [place] Rate: 78 P: 48 MI: 150 QRS: -34 QRSD: 104 T: 9 QT: 464 QTc: 529 Interpretive Statements SINUS RHYTHM MARKED LEFT AXIS DEVIATION [QRS AXIS < -30] MINIMAL VOLTAGE CRITERIA FOR LVH, CONSIDER NORMAL VARIANT [MEETS CRITERIAIN ONE OF: R(aVL), S(V1), R(V5), R(V5/V6)+S(V1)] MODERATE T-WAVE ABNORMALITY, CONSIDER ANTEROLATERAL ISCHEMIA [-0.1+ mV TWAVE IN V3-V6] Compared to ECG 05/22/2025 17:19:32 Ventricular premature complex(es) no longer present T-wave abnormality still present Possible ischemia still present ING SHOW HOST us Russell Delgado MD ECG ORDERABLES Final Result [facility] * (ABNORMAL) LIPID PANEL (05/25/2025 3:43 PM MORNING SHOW HOST) [facility] Signature CHOLESTEROL 189 <200 MG/DL 05/25/2025 4:28 PM MORNING SHOW HOST [facility] TRIGLYCERIDES 213(H) <150 MG/DL 05/25/2025 4:[address] [facility] HDL 35(L) >40.0 MG/DL 05/25/2025 4:[address] [facility] LDL (CALCULATED) 111(H) <100 MG/DL 05/25/2025 4:[address] [facility] Comment:CALCULATED USING THE FRIEDEWALD EQUATION NON HDL CHOLESTEROL 154(H) <130 MG/DL 05/25/2025 4:[address] [facility] CHOL/HDL RATIO 5.4(H) 0.0 - 4.5 05/25/2025 4:[address] [facility] VLDL CALCULATION 43 5 - 55 MG/DL 05/25/2025 4:[address] [facility] LIPID INTERPRETATION 05/25/2025 4:[address] [facility] Comment: [facility] CONCENSUS REPORT RECOMMENDATIONS: ADULT CHILD LOW RISK: CHOLESTEROL <200 <170 TRIGLYCERIDE <150 --- HDL >=60 --- LDL <100 <110 BORDERLINE: CHOLESTEROL 200-239 170-199 TRIGLYCERIDE 150-199 --- HDL 40-59 --- LDL 100-159 110-129 HIGH RISK: CHOLESTEROL >=240 >=200 TRIGLYCERIDE >=200 --- HDL <40 --- LDL >=160 >=130 BLOOD VENOUS BLOOD SPECIMEN / Unknown 05/25/2025 3:43 PM MORNING SHOW HOST us Russell Delgado MD LABORATORY Final Result [facility] [address] [place] [address], * ALDOSTERONE/RENIN ACTIVITY (05/25/2025 3:43 PM MORNING SHOW HOST) ALDOSTERONE S/P/B 4 see note ng/dL 06/02/2025 12:33 PM MORNING SHOW HOST [employer] [place] Comment: Unable to flag abnormal result(s), please refer to reference range(s) below: Adult Reference Ranges for Aldosterone, LC/MS/MS: Upright 8:00 - 10:00 am < or = 28 ng/dL Upright 4:00 - 6:00 pm < or = 21 ng/dL Supine 8:00 - 10:00 am 3 - 16 ng/dL PLASMA RENIN ACTIVITY 0.29 0.25 - 5.82 ng/mL/h 06/02/2025 12:33 PM MORNING SHOW HOST [employer] [place] ALDOSTERONE/RENIN RATIO 13.8 0.9 - 28.9 Ratio 06/02/2025 12:33 PM MORNING SHOW HOST [employer] [facility] Comment: This test was developed and its analytical performance characteristics have been determined by [employer] [place], [place]. It has not been cleared or approved by the U.S. Food and Drug Administration. This assay has been validated pursuant to the CLIA regulations and is used for clinical purposes. Test Performed by [employer], [employer] [facility], [address] [place] [address] Paolo Dewey M.D., Ph.D., Director of Laboratories , CLIA [id number] BLOOD VENOUS BLOOD SPECIMEN / Unknown 05/25/2025 3:43 PM MORNING SHOW HOST us Russell Delgado MD LABORATORY Final Result [id number] , * (ABNORMAL) URINALYSIS (05/25/2025 2:40 PM MORNING SHOW HOST) SPECIMEN TYPE URINE CLEAN CATCH 05/25/2025 2:36 PM MORNING SHOW HOST [facility] COLOR (U) LIGHT YELLOW 05/25/2025 3:04 PM MORNING SHOW HOST [facility] TRANSPARENCY CLEAR 05/25/2025 3:04 PM MORNING SHOW HOST [facility] SPECIFIC GRAVITY (U) >1.050(H) 1.001 - 1.030 05/25/2025 3:[address] [facility] U PH 7.0 5.0 - 9.0 05/25/2025 3:[address] [facility] LEUKOCYTES (U) NEGATIVE NEGATIVE 05/25/2025 3:[address] [facility] NITRITES NEGATIVE NEGATIVE 05/25/2025 3:[address] [facility] PROTEIN RANDOM (U) NEGATIVE <30 MG/DL 05/25/2025 3:[address] [facility] GLUCOSE (U) NORMAL NORMAL MG/DL 05/25/2025 3:[address] [facility] KETONES MG/DL (U) NEGATIVE NEGATIVE MG/DL 05/25/2025 3:[address] [facility] UROBILINOGEN NORMAL NORMAL MG/DL 05/25/2025 3:[address] [facility] BILIRUBIN (U) NEGATIVE NEGATIVE MG/DL 05/25/2025 3:[address] [facility] BLOOD (U) 2+(A) NEGATIVE 05/25/2025 3:[address] [facility] WBC/HPF 1 <6 /HPF 05/25/2025 3:[address] [facility] RBC/HPF 4 <6 /HPF 05/25/2025 3:[address] [facility] BACTERIA (U) RARE(A) NONE /HPF 05/25/2025 3:[address] [facility] SQUAMOUS EPITHELIALS RARE /HPF 05/25/2025 3:[address] [facility] URINE URINE SPECIMEN OBTAINED BY CLEAN CATCH PROCEDURE / Unknown 05/25/2025 2:40 PM MORNING SHOW HOST us Russell Delgado MD URINE ORDERABLES Final Result [facility] [address] [place] [address], [place] [phone] * XA RHC+LHC POSS (05/25/2025 9:59 AM MORNING SHOW HOST) Anatomical Region Laterality Modality Cardiac Family Reunification Specialist 05/25/2025 8:0 0 AM MORNING SHOW HOST Yennifer Lopez CONTINUOUS PICKLING LINE PICKLER HELPER ROUGE PRESSER Edited Result - Final * (ABNORMAL) CG8 Plus-ISTAT (05/25/2025 9:11 AM MORNING SHOW HOST) Only the most recent of2 resultswithin the time period is included. TECH CODE [id number] 05/26/2025 11:[address] [facility] PH ARTERIAL 7.43 7.35 - 7.45 05/26/2025 11:[address] [facility] PCO2 48.6(H) 35.0 - 45.0 MM HG 05/26/2025 11:[address] [facility] PO2 165(H) 80.0 - 100.0 MM HG 05/26/2025 11:[address] [facility] BE/BASE EXCESS 8.0 MEQ/L 05/26/2025 11:[address] [facility] BICARB ARTERIAL 32.5(H) 22.0 - 26.0 MEQ/L 05/26/2025 11:[address] [facility] TOTAL CO2 ARTERIAL 34 MEQ/L 05/26/2025 11:[address] [facility] O2 Saturation 100.0 90.0 - 100.0 % 05/26/2025 11:[address] [facility] SODIUM BLOOD GAS 140 135.0 - 145.0 MMOL/L 05/26/2025 11:[address] [facility] POTASSIUM BLOOD GAS 3.3(L) 3.5 - 4.5 MMOL/L 05/26/2025 11:[address] [facility] CALCIUM BLOOD GAS 1.1 1.1 - 1.3 MMOL/L 05/26/2025 11:[address] [facility] GLUCOSE POC 130(H) 70 - 110 MG/DL 05/26/2025 11:[address] [facility] HEMATOCRIT BLOOD GAS 42.0 38.0 - 48.0 % 05/26/2025 11:[address] [facility] HEMOGLOBIN BLOOD GAS 14.3 12.0 - 16.0 G/DL 05/26/2025 11:[address] [facility] 05/25/2025 9:11 AM MORNING SHOW HOST Kennedy Eastman MD POINT OF CARE TEST ORDERABLES Fi nal Result [facility] [address] [place] [address], * GI PANEL PCR - STOOL (05/23/2025 2:51 PM MORNING SHOW HOST) CAMPYLOBACTER PCR (STOOL) NOT DETECTED NOT DETECTED 05/23/2025 4:29 PM MORNING SHOW HOST [facility] PLESIOMONAS SHIGELLOIDES PCR (STOOL) NOT DETECTED NOT DETECTED 05/23/2025 4:29 PM MORNING SHOW HOST [facility] SALMONELLA PCR (STOOL) NOT DETECTED NOT DETECTED 05/23/2025 4:29 PM MORNING SHOW HOST [facility] VIBRIO PCR (STOOL) NOT DETECTED NOT DETECTED 05/23/2025 4:29 PM MORNING SHOW HOST [facility] VIBRIO CHOLERAE PCR (STOOL) NOT DETECTED NOT DETECTED 05/23/2025 4:[address] [facility] YERSINIA ENTEROCOLITICA PCR (STOOL) NOT DETECTED NOT DETECTED 05/23/2025 4:[address] [facility] ENTEROAGGREGATIVE ECOLI PCR (STOOL) NOT DETECTED NOT DETECTED 05/23/2025 4:[address] [facility] ENTEROPATHOGENIC ECOLI PCR (STOOL) NOT DETECTED NOT DETECTED 05/23/2025 4:[address] [facility] ENTEROTOXIGENIC ECOLI PCR (STOOL) NOT DETECTED NOT DETECTED 05/23/2025 4:[address] [facility] SHIGA LIKE TOXIN ECOLI PCR (STOOL) NOT DETECTED NOT DETECTED 05/23/2025 4:[address] [facility] SHIG/ENTEROINVASIVE ECOLI PCR (STOOL) NOT DETECTED NOT DETECTED 05/23/2025 4:[address] [facility] CRYPTOSPORIDIUM PCR (STOOL) NOT DETECTED NOT DETECTED 05/23/2025 4:[address] [facility] CYCLOSPORA CAYETANENSIS PCR (STOOL) NOT DETECTED NOT DETECTED 05/23/2025 4:[address] [facility] ENTAMOEBA HISTOLYTICA PCR (STOOL) NOT DETECTED NOT DETECTED 05/23/2025 4:[address] [facility] GIARDIA LAMBLIA PCR (STOOL) NOT DETECTED NOT DETECTED 05/23/2025 4:[address] [facility] ADENOVIRUS F40/41 PCR (STOOL) NOT DETECTED NOT DETECTED 05/23/2025 4:[address] [facility] ASTROVIRUS PCR (STOOL) NOT DETECTED NOT DETECTED 05/23/2025 4:[address] [facility] NOROVIRUS GI/GII PCR (STOOL) NOT DETECTED NOT DETECTED 05/23/2025 4:[address] [facility] ROTAVIRUS A PCR (STOOL) NOT DETECTED NOT DETECTED 05/23/2025 4:29 PM MORNING SHOW HOST [facility] SAPOVIRUS PCR (STOOL) NOT DETECTED NOT DETECTED 05/23/2025 4:29 PM MORNING SHOW HOST [facility] STOOL (Per Rectum) 05/23/2025 2:51 PM MORNING SHOW HOST Enedina Hurtado VALUE ENGINEER MICROBIOLOGY - GENERAL ORDPapa WALDRON Final Result [facility] [address] [place] [address], [place] [phone] * US ABD LIMITED (05/23/2025 10:22 AM MORNING SHOW HOST) Anatomical Region Laterality Modality Abdomen Ultrasound 05/23/2025 4:14 PM MORNING SHOW HOST Impressions 05/23/2025 4:28 PM MORNING SHOW HOST IMPRESSION: 1. Minimal gallbladder sludge. No discrete gallstones. No sonographic evidence of acute cholecystitis. No intrahepatic or extrahepatic biliary ductal dilation. 2. Partially obscured pancreas. Atrophic echogenic pancreas. 3. Mildly prominent hepatic veins suggesting elevated right heart pressure. Ordered By: ENEDINA HURTADO Interpreted By: Yovany Palmer, 05/23/2025 4:14 PM Narrative 05/23/2025 4:28 PM MORNING SHOW HOST [facility] [address] [place], [place] [address] IMAGING STUDIES: US ABD LIMITED DATE: 05/23/2025 9:21 AM [...] Echogenic visualized pancreas could be due to fatty infiltration. Severe pancreatic atrophy on CT. Right kidney 10 x 5.5 x 5.5 cm. No hydronephrosis or apparent renal mass. Normal color Doppler signal within the right kidney. Procedure Note Yovany Palmer MD - 05/23/[address] [address] IMAGING STUDIES: US ABD LIMITEDDATE: 05/23/2025 9:21 AM HISTORY: CT revealed Mild gallbladder wall thickening can also be asequela of CHF. Correlate for clinical findings of acute cholecystitisand consider ultrasound if indicated. 59-year-old female. CDU patient.On CT abdomen pelvis without contrast 05/22/2025, mild gallbladder wallthickening, possibly resulting from congestive heart failure althoughcholecystitis was not excluded. On CTA chest 05/22/2025, mildpericholecystic fluid or inflammatory changes. Follow-up. COMPARISON: CT abdomen pelvis without contrast 05/22/2025. CTA chest05/22/2025. DISCUSSION: Liver echogenicity within normal limits. Liver length of 14 cm (on05/22/2025 CT, hepatic craniocaudal length of 16.3 cm). No focal hepaticmass or intrahepatic biliary ductal dilatation. Color doppler imaging of the hepatic veins, inferior vena cava and portalvein and pulse Doppler imaging of the portal vein. Appropriate flowdirection in the portal vein. Mildly prominent hepatic veins could be dueto elevated right heart pressure. Adequately distended gallbladder. No apparent gallstones. Minimalgallbladder sludge. Gallbladder wall is normal at 1.5 mm thickness. Nosonographic Manuel's sign. No pericholecystic fluid. Common bile duct isnormal at 3.7 mm diameter. Bowel gas partially obscures the pancreatic head and tail. Echogenicvisualized pancreas could be due to fatty infiltration. Severe pancreaticatrophy on CT. Right kidney 10 x 5.5 x 5.5 cm. No hydronephrosis or apparent renal mass.Normal color Doppler signal within the right kidney. IMPRESSION: 1. Minimal gallbladder sludge. No discrete gallstones. No sonographicevidence of acute cholecystitis. No intrahepatic or extrahepatic biliaryductal dilation. 2. Partially obscured pancreas. Atrophic echogenic pancreas. 3. Mildly prominent hepatic veins suggesting elevated right heartpressure. Ordered By: ENEDINA HRUTADO Interpreted By: Yovany Palmer, 05/23/2025 4:14 PM us Enedina Hurtado VALUE ENGINEER ULTRASOUND Final Resul t * USE ECHOCARDIOGRAM W CON (05/23/2025 8:46 AM MORNING SHOW HOST) Anatomical Region Laterality Modality NA Echocardiogram 05/23/2025 8:02 AM MORNING SHOW HOST Narrative 05/23/2025 9:59 PM MORNING SHOW HOST Echocardiography Report Pat.Name: JESSICA TENA Pat.ID: [id number] .Date: 05/23/2025 Refer.MD: ENEDINA HURTADO Exam Time: 8:02:00 AM Study Type:ECHO WITH CARDIAC DOPPLER COMP Height: 64 in Weight: 160 lb BSA: 1.78 m2 Age: 7 1965,59Y Sex: F BP: 144/91 HR: 92 bpm Sonogrphr: Shelley Jaramillo SERGIO Pat. Stat.:Inpatient Room: [facility] Reason for Study:HTN, Fluid overload, Elevated troponin History / Clinical:Smoker, Stroke/CVA/TIA Procedures: 2D, M-mode, Doppler, Color Flow, Definity was used to enhance endocardial definition. The study quality is technically difficult. Race: W ++++++++++++++++++++++++++++++++++++ SUMMARY: ++++++++++++++++++++++++++++++++++++ The left ventricular size is mildly enlarged. Estimated left ventricular ejection fraction is 20-25%. No concentric left ventricular hypertrophy. Left ventricular diastolic function is abnormal (grade 3 - restrictive filling). Moderate global hypokinesis is noted. The right ventricular size is mildly enlarged. Right ventricular systolic function is depressed. The left atrial volume is mildly increased (34- 41ml/M2). Atrial septum appears intact. No evidence of pericardial effusion. Inferior vena cava shows >50% collapse with [...] is abnormal (grade 3 - restrictive filling). WM: Moderate global hypokinesis is noted. RV: The right ventricular size is mildly enlarged. [...] with normal right atrial pressure. AV: The aortic valve is trileaflet. No evidence of aortic valve stenosis. No evidence of aortic regurgitation. MV: Mild mitral regurgitation. No evidence of mitral valve stenosis. PV: No evidence of pulmonic valve stenosis. Mild pulmonic regurgitation. TV: Mild tricuspid regurgitation. Right ventricular systolic pressure is 50-60 mmHg suggestive of moderate pulmonary hypertension. No evidence of tricuspid valve stenosis. ++++++++++++++++++++++++++++++++++++ MEASUREMENTS: ++++++++++++++++++++++++++++++++++++ DOPPLER LVOT LVOTpkPG 2 mmHg LVOTmnPG 1 mmHg LVOTpkVel 71.9 cm/s (70-110)+ LVOT SV 35 ml LVOT TVI 11.1 cm Right Atrium RA Press 3 mmHg Jaquez's Disk 20 Pulmonary Veins PVnpkVeld 76.2 cm/s PVnVs/Vd 0.3 PVnpkVels 23.3 cm/s PVn A Dur 92 msec AV Forward Flow AV TVI 18.3 cm AV pkPG 5 mmHg AV pkVel 111 cm/s (100-170)+ Area (TVI) 1.9 cm2 (3-5)* AV mnPG 3 mmHg Area (Major) 2.03 cm2 (3-5)* MV Forward Flow MV DeTm 141 msec MV pkE 98.8 cm/s (60-130)+ MV E/A 1.9 MV pkA 50.9 cm/s PV Forward Flow PV pkVel 67.4 cm/s (60-90)+ PV AC 120 msec PV pkPG 2 [...] 0.61 PV Antegrade Flow Acceleration Sl 387 cm/s2 PV Regurgitant Flow Peak Gradient ( 13 mmHg 2D Left Ventricle LVIDd 5.87 cm (3.6-5.2)+* LV ESV 135 ml LVIDs 4.85 cm [...] 37.7 mm Right and Left 0.504 Major [place] 95.8 mm Ventricular Septum IVSd 0.929 cm Left Atrium LA VOLBP 72.1 ml Aorta Ao Rtd 3.3 cm (zsc 1.9) LVOT LVOT 2 cm LVOTArea 3.14 cm2 Ratios IVS Inferior vena cava IVC Diam 17.5 mm LA Biplane LAVol I BP 40.5 ml/m2 RA Single Plane Right Atrium MO 18.5 mm Right Atrium Sy 55.1 ml Right Atrium Sy 56.6 mm Right Atrium Sy 31 ml/m2 Right Atrium Sy 19.8 cm2 MMODE TA Tricuspid Annul 14.1 mm <Electronic Signature> 05/23/2025 09:59 PM Russell Delgado M.D. Procedure Note Russell Delgado MD - 05/23/2025 Echocardiography Report Pat.Name: JESSICA TENA Pat.ID: [id number] .Date: 05/23/2025 Refer.MD: ENEDINA HURTADO Exam Time: 8:02:00 AM Study Type:ECHO WITH CARDIAC DOPPLER COMP Height: 64 in Weight: 160 lb BSA: 1.78 m2 Age: 7 1965,59Y Sex: F BP: 144/91 HR: 92 bpm Sonogrphr: Shelley Jaramillo [facility] Pat. Stat.:Inpatient Room: U Reason for Study:HTN, Fluid overload, Elevated troponin History / Clinical:Smoker, Stroke/CVA/TIA Procedures: 2D, M-mode, Doppler, Color Flow, Definity was used to enhance endocardial definition. The study quality is technically difficult. Race: W ++++++++++++++++++++++++++++++++++++ SUMMARY: ++++++++++++++++++++++++++++++++++++ The left ventricular size is mildly enlarged. Estimated left ventricular ejection fraction is 20-25%. No concentric left ventricular hypertrophy. Left ventricular diastolic function is abnormal (grade 3 - restrictive filling). Moderate global hypokinesis is noted. The right ventricular size is mildly enlarged. Right ventricular systolic function is depressed. The left atrial volume is mildly increased (34- 41ml/M2). Atrial septum appears intact. No evidence of pericardial effusion. Inferior vena cava shows >50% collapse with [...] is abnormal (grade 3 - restrictive filling). WM: Moderate global hypokinesis is noted. RV: The right ventricular size is mildly enlarged. [...] with normal right atrial pressure. AV: The aortic valve is trileaflet. No evidence of aortic valve stenosis. No evidence of aortic regurgitation. MV: Mild mitral regurgitation. No evidence of mitral valve stenosis. PV: No evidence of pulmonic valve stenosis. Mild pulmonic regurgitation. TV: Mild tricuspid regurgitation. Right ventricular systolic pressure is 50-60 mmHg suggestive of moderate pulmonary hypertension. No evidence of tricuspid valve stenosis. ++++++++++++++++++++++++++++++++++++ MEASUREMENTS: ++++++++++++++++++++++++++++++++++++ DOPPLER LVOT LVOTpkPG 2 mmHg LVOTmnPG 1 mmHg LVOTpkVel 71.9 cm/s (70-110)+ LVOT SV 35 ml LVOT TVI 11.1 cm Right Atrium RA Press 3 mmHg Jaquez's Disk 20 Pulmonary Veins PVnpkVeld 76.2 cm/s PVnVs/Vd 0.3 PVnpkVels 23.3 cm/s PVn A Dur 92 msec AV Forward Flow AV TVI 18.3 cm AV pkPG 5 mmHg AV pkVel 111 cm/s (100-170)+ Area (TVI) 1.9 cm2 (3-5)* AV mnPG 3 mmHg Area (Major) 2.03 cm2 (3-5)* MV Forward Flow MV DeTm 141 msec MV pkE 98.8 cm/s (60-130)+ MV E/A 1.9 MV pkA 50.9 cm/s PV Forward Flow PV pkVel 67.4 cm/s (60-90)+ PV AC 120 msec PV pkPG 2 [...] 0.61 PV Antegrade Flow Acceleration Sl 387 cm/s2 PV Regurgitant Flow Peak Gradient ( 13 mmHg 2D Left Ventricle LVIDd 5.87 cm (3.6-5.2)+* LV ESV 135 ml LVIDs 4.85 cm [...] 37.7 mm Right and Left 0.504 Major [place] 95.8 mm Ventricular Septum IVSd 0.929 cm Left Atrium LA VOLBP 72.1 ml Aorta Ao Rtd 3.3 cm (zsc 1.9) LVOT LVOT 2 cm LVOTArea 3.14 cm2 Ratios IVS Inferior vena cava IVC Diam 17.5 mm LA Biplane LAVol I BP 40.5 ml/m2 RA Single Plane Right Atrium MO 18.5 mm Right Atrium Sy 55.1 ml Right Atrium Sy 56.6 mm Right Atrium Sy 31 ml/m2 Right Atrium Sy 19.8 cm2 MMODE TA Tricuspid Annul 14.1 mm <Electronic Signature> 05/23/2025 09:59 PM Russell Delgado M.D. Enedina Hurtado VALUE ENGINEER ECHO Final Resul t * (ABNORMAL) PHOSPHORUS, INORGANIC PHOSPHATE (05/23/2025 3:35 AM MORNING SHOW HOST) Only the most recent of2 resultswithin the time period is included. [facility] [facility] PHOSPHORUS 2.0(L) 2.5 - 4.9 MG/DL 05/23/2025 4:46 AM MORNING SHOW HOST [facility] BLOOD VENOUS BLOOD SPECIMEN / Unknown 05/23/2025 3:35 AM MORNING SHOW HOST Enedina Hurtado VALUE ENGINEER LABORATORY Final Resul t [facility] [address] [place] [address], [place] [phone] * HEPATITIS PANEL,ACUTE (05/23/2025 3:35 AM MORNING SHOW HOST) [facility] HEPATITIS B SURFACE AG NON-REACTI VE NON-REACTI VE 05/23/2025 2:12 PM MORNING SHOW HOST [facility] HEP B CORE IGM NON-REACTI VE NON-REACTI VE 05/23/2025 2:47 PM MORNING SHOW HOST [facility] HAV IGM NON-REACTI VE NON-REACTI VE 05/23/2025 2:47 PM MORNING SHOW HOST [facility] HEPATITIS C AB NON-REACTI VE NON-REACTI VE 05/23/2025 2:39 PM MORNING SHOW HOST [facility] BLOOD VENOUS BLOOD SPECIMEN / Unknown 05/23/2025 3:35 AM MORNING SHOW HOST us Enedina Hurtado VALUE ENGINEER LABORATORY Final Resul t Performing Organization Address City/[facility]/ZIP Co de Phone Number [facility] [address] [place] [address], [place] [phone] * CULTURE, BACTERIA, BLOOD (05/22/2025 9:05 PM MORNING SHOW HOST) Only the most recent of2 resultswithin the time period is included. SPEC DESCRIPTION BLOOD-VENOU S 05/22/2025 8:01 PM MORNING SHOW HOST [facility] SPECIAL REQUESTS NO SPECIAL REQUEST 05/22/2025 8:01 PM MORNING SHOW HOST [facility] CULTURE RESULT NO GROWTH 5 DAYS 05/27/2025 10:23 PM MORNING SHOW HOST [facility] BLOOD VENOUS BLOOD SPECIMEN / Unknown 05/22/2025 9:05 PM MORNING SHOW HOST 05/22/2025 9:32 PM MORNING SHOW HOST us Enedina Hurtado APRN MICROBIOLOGY - GENERAL ORDE RABLES Final Result [facility] [address] [place] [address], [place] [phone] * LACTIC ACID W REFLEX (SEPSIS) (05/22/2025 8:45 PM MORNING SHOW HOST) LACTIC ACID VENOUS 1.9 0.4 - 2.0 MMOL/L 05/22/2025 9:42 PM MORNING SHOW HOST [facility] BLOOD VENOUS BLOOD SPECIMEN / Unknown 05/22/2025 8:45 PM MORNING SHOW HOST us Enedina Hurtado VALUE ENGINEER LABORATORY Final Resul t [facility] [address] [place] [address], [place] [phone] * CT ABD+PEL WO CON (05/22/2025 7:46 PM MORNING SHOW HOST) Anatomical Region Laterality Modality Abdomen Computed Tomogra phy 05/22/2025 7:48 PM MORNING SHOW HOST Impressions 05/22/2025 8:11 PM MORNING SHOW HOST Impression: 1. Nonspecific symmetric bilateral perinephric fat [...] By: Binh Collado MD, 05/22/2025 7:48 PM Narrative 05/22/2025 8:11 PM MORNING SHOW HOST [facility] [address] [place], [place] [address] Examination: CT abdomen and pelvis without IV contrast. Clinical Information: Abnormal findings on a recent CT of the chest requiring further evaluation. Comparison: [...] enlarged. Small right and trace left pleural effusions. Interlobular septal thickening compatible with mild pulmonary edema. [...] No abnormality. BONES/SOFT TISSUES No significant lesion. Procedure Note Binh Collado, DO - 05/22/[address] [address] Examination: CT abdomen and pelvis without IV contrast. Clinical Information: Abnormal findings on a recent CT of the chestrequiring further evaluation. Comparison: CT chest 05/22/2025 Technique: IV contrast: None Oral contrast: None. Technical comments: Standard technique. Dose reduction: This CT exam was performed using one or more of thefollowing dose reduction techniques: Automated exposure control,adjustment of the mA and/or kV according to patient size, and/or use ofiterative reconstruction technique. Findings: LOWER CHEST The heart is enlarged. Small right and trace left pleural effusions.Interlobular septal thickening compatible with mild pulmonary edema. UPPER ABDOMEN Liver and bile ducts: Normal in size and contour. No biliary dilatation. Gallbladder: Gallbladder in situ. Mild gallbladder wall thickening. Pancreas: Severe pancreatic atrophy. Spleen: Negative. RETROPERITONEUM Adrenals: Negative. Kidneys: Contrast in the urinary collection system. Nohydroureteronephrosis. Symmetric bilateral perinephric fat stranding isnonspecific. Lymph nodes: No lymphadenopathy in the abdomen or pelvis. BOWEL AND PERITONEUM Bowel: Normal in caliber and wall thickness. Colonic diverticulosis. Theappendix is normal. Free air or fluid: Trace fluid in the pelvis could relate to volumeoverload. VASCULATURE The abdominal aorta and main branches are unremarkable. PELVIS No abnormality. BONES/SOFT TISSUES No significant lesion. Impression: 1. Nonspecific symmetric bilateral perinephric fat stranding can be seenchronically. Correlate clinically for findings of acute pyelonephritis. 2. Cardiomegaly with findings of volume overload including small rightand trace left pleural effusions and mild pulmonary edema. Trace fluid inthe pelvis is likely also related to volume overload. 3. Mild gallbladder wall thickening can also be a sequela of CHF.Correlate for clinical findings of acute cholecystitis and considerultrasound if indicated. 4. Additional chronic nonemergent findings as above. Referred By: Interpreted By: Binh Collado MD, 05/22/2025 7:48 PM us Enedina Hurtado VALUE ENGINEER CT Final Resul t * (ABNORMAL) TROPONIN, QUANT (05/22/2025 5:18 PM MORNING SHOW HOST) Only the most recent of3 resultswithin the time period is included. Pathologist [facility] [place] TROPONIN I HIGH SENSITIVITY 66(H) <54 ng/L 05/22/2025 6:11 PM MORNING SHOW HOST [facility] Comment: HIGH DOSES OF BIOTIN, TROPONIN-SPECIFIC AUTOANTIBODIES, AND ANTIBODY THERAPY CONTAINING HAMA MAY INTERFERE WITH THIS TEST RESULT. CORRELATION TO CLINICAL HISTORY AND PRESENTATION RECOMMENDED. BLOOD VENOUS BLOOD SPECIMEN / Unknown 05/22/2025 5:18 PM MORNING SHOW HOST us Enedina Hurtado APRN LABORATORY Final Resul t [facility] [address] [place] [address], [place] [phone] * (ABNORMAL) HEPATIC FUNCTION PANEL (05/22/2025 5:18 PM MORNING SHOW HOST) Pathologist [facility] [place] TOTAL PROTEIN S/P/B 7.4 6.4 - 8.2 G/DL 05/22/2025 6:[address] [facility] ALBUMIN S/P/B 3.6 3.4 - 5.0 G/DL 05/22/2025 6:[address] [facility] BILIRUBIN TOTAL S/P/B 1.5(H) 0.2 - 1.2 MG/DL 05/22/2025 6:[address] [facility] Comment: THIS ASSAY IS NOT RECOMMENDED FOR PATIENTS UNDERGOING TREATMENT WITH ELTROMBOPAG DUE TO THE POTENTIAL FOR FALSELY ELEVATED RESULTS. BILIRUBIN DIRECT S/P/B 0.5(H) 0.0 - 0.20 MG/DL 05/22/2025 6:[address] [facility] BILIRUBIN INDIRECT S/P/B 1.0(H) 0.0 - 0.9 MG/DL 05/22/2025 6:[address] [facility] ALKALINE PHOSPHATASE S/P/B 227(H) 50 - 136 U/L 05/22/2025 6:[address] [facility] AST 96(H) 15 - 37 U/L 05/22/2025 6:[address] [facility] ALT 88(H) 14 - 55 U/L 05/22/2025 6:[address] [facility] A/G RATIO 0.9(L) 1.0 - 2.0 RATIO 05/22/2025 6:[address] [facility] BLOOD VENOUS BLOOD SPECIMEN / Unknown 05/22/2025 5:18 PM MORNING SHOW HOST Enedina Hurtado VALUE ENGINEER LABORATORY Final Resul t [facility] [address] [place] [address], * CK (CPK) (05/22/2025 5:18 PM MORNING SHOW HOST) CPK 108 21 - 215 U/L 05/22/2025 6:21 PM MORNING SHOW HOST [facility] BLOOD VENOUS BLOOD SPECIMEN / Unknown 05/22/2025 5:18 PM MORNING SHOW HOST Enedina Hurtado VALUE ENGINEER LABORATORY Final Resul t [facility] [address] [place] [address], * MYCOPLASMA PNEUMONIAE AB (05/22/2025 5:18 PM MORNING SHOW HOST) Pathologist [facility] [place] M. PNEUMONIAE AB IGG <=0.90 <=0.90 05/28/2025 10:04 AM MORNING SHOW HOST [employer] [place] Comment: Reference Range: <=0.90 Negative 0.91-1.09 Equivocal >=1.10 Positive A positive IgG result indicates that the patient has antibody to Mycoplasma. It does not differentiate between an active or past infection. The clinical diagnosis must be interpreted in conjunction with the clinical signs and symptoms of the patient. M. PNEUMONIAE AB IGM 85 <770 U/mL 05/28/2025 10:04 AM MORNING SHOW HOST [employer] [place] Comment: Reference Range: <770 U/ml Negative 770-950 U/mL Low positive >950 U/mL Positive A positive IgM antibody result is consistent with recent infection. However, a negative result does not necessarily rule out recent infection as some individuals may not mount another IgM response, if previously infected. A positive IgM antibody result with or without a positive IgG antibody result, is consistent with recent infection. However, a negative result does not necessarily rule out recent infection as some individuals may not mount another IgM response, if previously infected. A positive IgG antibody result in the absence of a positive IgM antibody result, indicates that the patient has antibody to Mycoplasma. It does not differentiate between an active or past infection. The clinical diagnosis must be interpreted in conjunction with the clinical signs and symptoms of the patient. Test Performed by Edgar Brunner, [employer] [facility], [address] [place], [place] Paolo Dewey M.D., Ph.D., Director of Laboratories , [facility] [id number] BLOOD VENOUS BLOOD SPECIMEN / Unknown 05/22/2025 5:18 PM MORNING SHOW HOST Enedina Hurtado APRN LABORATORY Final Resul t Performing Organization Address City/[facility]/ZIP Co de Phone Number [employer] [place] [id number] [place], [place] , [place] [phone] * URINE BACTERIA CULTURE (05/22/2025 4:12 PM MORNING SHOW HOST) SPEC DESCRIPTION URINE CLEAN CATCH 05/22/2025 4:38 PM MORNING SHOW HOST [facility] SPECIAL REQUESTS NO SPECIAL REQUEST 05/22/2025 4:38 PM MORNING SHOW HOST [facility] CULTURE RESULT NO GROWTH 2 DAYS 05/24/2025 7:48 AM MORNING SHOW HOST [facility] URINE URINE SPECIMEN OBTAINED BY CLEAN CATCH PROCEDURE / Unknown 05/22/2025 4:12 PM MORNING SHOW HOST 05/22/2025 5:45 PM MORNING SHOW HOST Enedina Hurtado VALUE ENGINEER MICROBIOLOGY - GENERAL ORDE RABLES Final Result Performing Organization Address City/[facility]/ZIP Co de Phone Number [facility] [address] [place] [address], [place] [phone] * (ABNORMAL) Urinalysis, Auto, Complete (05/22/2025 4:12 PM MORNING SHOW HOST) SPECIMEN TYPE URINE, UNSPECIFIED 05/22/2025 4:12 PM MORNING SHOW HOST [facility] COLOR (U) YELLOW 05/22/2025 4:35 PM MORNING SHOW HOST [facility] TRANSPARENCY CLEAR 05/22/2025 4:35 PM MORNING SHOW HOST [facility] SPECIFIC GRAVITY (U) >1.050(H) 1.001 - 1.030 05/22/2025 4:35 PM MORNING SHOW HOST [facility] U PH 6.5 5.0 - 9.0 05/22/2025 4:[address] [facility] LEUKOCYTES (U) 75(A) NEGATIVE 05/22/2025 4:35 PM MORNING SHOW HOST [facility] NITRITES NEGATIVE NEGATIVE 05/22/2025 4:[address] [facility] PROTEIN RANDOM (U) 70(H) <30 MG/DL 05/22/2025 4:[address] [facility] GLUCOSE (U) NORMAL NORMAL MG/DL 05/22/2025 4:[address] [facility] KETONES MG/DL (U) 20(A) NEGATIVE MG/DL 05/22/2025 4:[address] [facility] UROBILINOGEN NORMAL NORMAL MG/DL 05/22/2025 4:[address] [facility] BILIRUBIN (U) NEGATIVE NEGATIVE MG/DL 05/22/2025 4:[address] [facility] BLOOD (U) TRACE(A) NEGATIVE 05/22/2025 4:[address] [facility] WBC/HPF 4 <6 /HPF 05/22/2025 4:[address] [facility] RBC/HPF 5 <6 /HPF 05/22/2025 4:35 PM MORNING SHOW HOST [facility] SQUAMOUS EPITHELIALS RARE /HPF 05/22/2025 4:[address] [facility] URINE URINE SPECIMEN / Unknown 05/22/2025 4:12 PM MORNING SHOW HOST us Osiel Leyva DO URINE ORDERABLES Final Result [facility] [address] [place] [address], [place] [phone] * STREP PNEUMO AG URINE (05/22/2025 4:12 PM MORNING SHOW HOST) S. PNEUMONIAE URINARY AG NEGATIVE NEGATIVE 05/23/2025 5:34 PM MORNING SHOW HOST [facility] URINE URINE SPECIMEN OBTAINED BY CLEAN CATCH PROCEDURE / Unknown 05/22/2025 4:12 PM MORNING SHOW HOST us Enedina Hurtado APRN MICROBIOLOGY - GENERAL ORDE VANITA Final Result Performing Organization Address [facility]/ZIP Co de Phone Number [facility] [address] [place] [address], [place] [phone] * LEGIONELLA AG URINE (05/22/2025 4:12 PM MORNING SHOW HOST) LEGIONELLA ANTIGEN (URINE) NEGATIVE NEGATIVE 05/23/2025 5:34 PM MORNING SHOW HOST [facility] URINE URINE SPECIMEN OBTAINED BY CLEAN CATCH PROCEDURE / Unknown 05/22/2025 4:12 PM MORNING SHOW HOST us Enedina Hurtado APRN MICROBIOLOGY - GENERAL ORDPapa WALDRON Final Result Performing Organization Address City/[facility]/ZIP Co de Phone Number [facility] [address] [place] [address], [place] [phone] * (ABNORMAL) LIPASE (05/22/2025 3:36 PM MORNING SHOW HOST) LIPASE 10(L) 13 - 75 UNITS/L 05/22/2025 4:33 PM MORNING SHOW HOST [facility] BLOOD VENOUS BLOOD SPECIMEN / Unknown 05/22/2025 3:36 PM MORNING SHOW HOST Osiel Leyva DO LABORATORY Final Result [facility] [address] [place] [address], * CTA CHEST PE PROTOCOL (05/22/2025 2:00 PM MORNING SHOW HOST) Anatomical Region Laterality Modality Chest Computed Tomogra phy 05/22/2025 2:52 PM MORNING SHOW HOST Impressions 05/22/2025 3:10 PM MORNING SHOW HOST =====IMPRESSION:===== No evidence of pulmonary embolism is [...] By: Emile Merlos MD, 05/22/2025 2:52 PM Narrative 05/22/2025 3:10 PM MORNING SHOW HOST [facility] [address] [place], [place] [address] EXAMINATION: CTA CHEST WITH CONTRAST EXAM DATE/TIME: [...] aneurysm is seen. Phase of enhancement limits evaluation for aortic dissection or other subtle abnormality.. Cardiomegaly is present. NONVASCULAR FINDINGS: Lungs and pleura: Bilateral pleural effusions are seen greater on the right side where it is mild to moderate. Focal groundglass opacities such as [...] supraclavicular region: The thyroid gland is unremarkable. Procedure Note Emile Merlos MD - 05/22/[address] [address] EXAMINATION: CTA CHEST WITH CONTRAST EXAM DATE/TIME: 05/22/2025 1:52 PM REASON FOR EXAM: SOB, PE R/O COMPARISON: None TECHNIQUE: Computed tomography angiography was performed of the chestafter administration of intravenous contrast, according to routineprotocol . 80 mL of Isovue 370 contrast was administered intravenouslyand uneventfully. Subsequent coronal and sagittal reformatted sequencesare created for evaluation. In addition MIP imaging of the thoracicarterial vasculature is created for review. A dose lowering technique wasused for this procedure, which may include, but is not limited to, dosereduction technique, automated exposure control, the use of iterativereconstruction, and ALARA (As Low As Reasonably Achievable) / Image Gentlytechniques. FINDINGS: VASCULAR FINDINGS: No evidence of filling defect in the pulmonary arteries is noted tosuggest pulmonary embolism. No definite or obvious evidence of aorticaneurysm is seen. Phase of enhancement limits evaluation for aorticdissection or other subtle abnormality.. Cardiomegaly is present. NONVASCULAR FINDINGS: Lungs and pleura: Bilateral pleural effusions are seen greater on theright side where it is mild to moderate. Focal groundglass opacities such as in the left lung on image 44 is seenmeasuring 8 mm. Additional scattered areas of groundglass opacity arenoted in the left lung such as on image 56 and other areas. Similarfindings in the right lung are seen scattered. Mediastinum and saad: Mediastinal lymphadenopathy is seen. 1.6 cmsubcarinal lymph node is seen. Multiple lymph nodes in the periaorticregion are seen which some are enlarged such as on image 48 measuring 1.2cm. Axillae:No enlarged axillary lymphadenopathy. Superficial tissues: Unremarkable Visualized Upper abdominal structures:Perinephric stranding about the leftkidney is seen. The right kidney is minimally visualized. Somepericholecystic fluid or inflammatory changes are possible. This also isincompletely visualized. Minimal stranding about the pancreas is notexcluded. Subtle ascites is possible. Bone Windows:Diffuse degenerative changes of the thoracic spine. Inferior cervical and supraclavicular region: The thyroid gland isunremarkable. =====IMPRESSION:===== No evidence of pulmonary embolism is seen. Cardiomegaly present. Bilateral scattered groundglass opacities and lungs. Small pleuraleffusions also seen. Pulmonary edema, atypical pneumonia or otheretiologies are possible. Correlate clinically. Subtle inflammatory changes in the upper abdomen. Left perinephricstranding suspected. Other subtle inflammatory changes about thegallbladder pancreas are possible. Consider additional imaging ifclinically indicated. The these areas are incompletely visualized. Ordered By: OSIEL LEYVA Interpreted By: Emile Merlos MD, 05/22/2025 2:52 PM us Osiel Leyva DO CT Final Result * (ABNORMAL) D-DIMER, QUANTITATIVE (05/22/2025 1:18 PM MORNING SHOW HOST) D-DIMER 1,747() 0 - 500 ng{FEU}/mL 05/22/2025 1:58 PM MORNING SHOW HOST [facility] Comment: D-Dimer values less than or equal to 500 ng/mL FEU have a negative predictive value of >95% for exclusion of deep vein thrombosis and pulmonary embolism. In patients over 50 (who tend to have higher normal baseline D-Dimer values), recent studies suggest age-adjusted D-Dimer cutoff values (calculated as: age [years] x 10 ng/mL) result in equivalent outcomes and no additional false negative findings. Successful Call: DDIMR called 05/22/2025 01:59 PM to EMERGENCY ROOM (Gianfranco/KADI MARIN) by [id number]. Read Back: Yes 05/22/2025 1:18 PM MORNING SHOW HOST Dotty Lamb CNM LABORATORY Final Result [facility] [address] [place] [address], [place] [phone] * RESPIRATORY PCR PNL LIMITED (FLU A/FLU B/RSV/COVID) (05/22/2025 12:32 PM MORNING SHOW HOST) Pathologist [facility] [place] SPEC DESCRIPTION NASOPHARYNGEAL SWAB 05/22/2025 12:32 PM MORNING SHOW HOST [facility] CORONAVIRUS SARS COV 2 PCR (RESP) NEGATIVE NEGATIVE 05/22/2025 1:26 PM MORNING SHOW HOST [facility] INFLUENZA A PCR (RESP) NEGATIVE NEGATIVE 05/22/2025 1:26 PM MORNING SHOW HOST [facility] INFLUENZA B PCR (RESP) NEGATIVE NEGATIVE 05/22/2025 1:26 PM MORNING SHOW HOST [facility] RSV PCR (RESP) NEGATIVE NEGATIVE 05/22/2025 1:26 PM MORNING SHOW HOST [facility] SWAB NASOPHARYNGEAL STRUCTURE / Unknown 05/22/2025 12:32 PM MORNING SHOW HOST us Mannie MALIN MICROBIOLOGY - GENERAL MARIO WALDRON Final Result [facility] [address] [place] [address], [place] [phone] from Last 3 Months Insurance [employer] Advance Directives * POLST (Latest Code Status on File) Date Activated Date Inactivated Comments 05/22/2025 5:48 PM 05/29/2025 3:33 PM Question Answer Comments Cardiopulmonary Resuscitatio n (CPR) If patient has no pulse and is not breathing: DO NOT Attempt Resuscitation CPR Medical Interventions when N OT in Cardiopulmonary Arrest (If patient is found with a pulse and/or is breathing): Selective Treatment - Do NOT Intubate Selective Treatment Options: OxygenSucti onCPAP/BIPAPIV FluidsIV Medications Documentation of discussion: Patient * Full Code Date Activated Date Inactivated Comments 04/08/2023 12:27 AM 04/09/2023 1:54 PM Care Teams [employer] Relationship Specialty Start Date End Date Berry Puga MD [address] [facility] [place] [address] PCP - General FAMILY PRACTICE 05/23/25
[2025-06-20 08:43] LABS: Hematocrit 41.2 % (37.0-47.0); Hemoglobin 13.3 g/dL (12.0-15.0); Mean Corpuscular HGB Conc 32.3 g/dl (32-36); Mean Corpuscular Hemoglobin 31.7 pg (26-34); Mean Corpuscular Volume 98.1 fl (80-100); Platelet Count Result 198 k/mm3 (150-375); Red Blood Count 4.20 M/mm3 (4.2-5.4); White Blood Count 6.9 K/mm3 (4.5-10.0)
[2025-06-20 08:55] LABS: Alanine Aminotransferase 15 U/L (6-35); Albumin Level 4.0 g/dL (3.5-5.1); Alkaline Phosphatase 90 U/L (38-126); Anion Gap 7 mmol/L (4-12); Aspartate Amino Transferase 27 U/L (14-36); Bilirubin,Total 0.4 mg/dL (0.2-1.3); Blood Urea Nitrogen 20 mg/dL (7-17); Calcium 9.1 mg/dL (8.4-10.2); Carbon Dioxide 32 mmol/L (22-30); Chloride 100 mmol/L (98-107); Estimated Glomerular Filt Rate 49; Glucose 122 mg/dL (65-110); Magnesium 1.9 mg/dL (1.6-2.3); Potassium 3.9 mmol/L (3.4-5.0); Sodium 139 mmol/L (137-145); Total Protein 7.0 g/dL (6.3-8.2)
== END 2025-06-20 08:08 | disposition home or self-care (01) ==
PROVIDERS: PCP Family Medicine
DX: I42.8 Other cardiomyopathies (principal)
CPT/HCPCS: 36415; 80053; 83735; 85027